=== PATIENT | female | born 1960 | race Caucasian/White ===

== ENCOUNTER 2016-12-06 18:19 | Observation (INO) ==
[2016-12-06] MEDS ORDERED: Ipratropium/Albuterol Neb 3 ML IH ONE (18:39)
--- NOTE | 2016-12-06 18:42 | Emergency Department Note ---
Disposition Clinical Impression: Acute exacerbation of chronic obstructive airways disease, Hypoxia Disposition: Admitted As Inpatient Condition: Fair Time of Disposition: 20:26 Altered Mental Status HPI - General Chief Complaint: ED Shortness of Breath/Dyspnea Stated Complaint: Weakness,AMS Time Seen by Provider: 12/06/16 18:25 Source: patient, family Mode of arrival: wheelchair Limitations: no limitations Nursing Notes Reviewed: Yes Vital Signs Reviewed: Yes - History of Present Illness HPI Narrative: 56-year-old female who comes in stating that she's had a cough congestion and has had increasing shortness of breath related to her COPD. Family states intermittently she's been confused. She is oxygen dependent at home. MD complaint: altered mental status Onset (ago): day(s) Timing confirmed by: family member Context: COPD Associated symptoms: Reports: cough, fever, shortness of breath - Related Data Home Medications Medication Instructions Recorded Confirmed ATROVENT Inhaler 06/07/16 Aspirin 06/07/16 Atorvastatin 06/07/16 06/07/16 Celexa 06/07/16 Furosemide 06/07/16 Lisinopril 06/07/16 Oxygen 06/07/16 Potassium Chloride 06/07/16 QVAR 40 mcg 06/07/16 Ventolin Hfa 06/07/16 06/07/16 Xanax 06/07/16 Previous Rx's Medication Instructions Recorded Cyclobenzaprine [Flexeril] 10 mg PO TID #10 tablet 06/07/16 Ketorolac [Toradol] 10 mg PO Q6HR #10 tablet 06/07/16 Allergies Allergy/AdvReac Type Severity Reaction Status Date / Time No Known Allergies Allergy Verified 06/07/16 11:16 Constitutional: Denies: fever, chills, weakness, weight change Eyes: Denies: eye pain, eye discharge, vision change ENT ED: Denies: ear pain, throat pain, dental pain, hearing loss, epistaxis, congestion, dysphagia Cardiovascular: Denies: chest pain, palpitations, dyspnea on exertion, edema, syncope Respiratory: Reports: cough, dyspnea, wheezes. Denies: hemoptysis, stridor Gastrointestinal: Denies: abdominal pain, nausea, vomiting, diarrhea, constipation, hematemesis, melena, hematochezia Genitourinary: Denies: dysuria, frequency, hematuria, discharge Musculoskeletal: Denies: back pain, neck pain, arthralgia, myalgia Integumentary: Denies: rash, abrasion, lesions Neurological: Denies: headache, weakness, numbness, paresthesias, confusion, abnormal gait, vertigo Psychiatric: Denies: anxiety, depression, suicidal thoughts, homicidal thoughts , auditory hallucinations, visual hallucinations Endocrine: Denies: fatigue Hematological/Lymphatic: Denies: easy bleeding, easy bruising Allergic/Immunologic: Denies: facial swelling, urticaria Past Medical History - Past Medical History Medical history: Reports: CHF, COPD, hyperlipidemia, myocardial infarction - Social History Smoking Status: Former smoker Smokeless Tobacco Status: No Alcohol use: Reports: unknown Drug use: Reports: none Physical Exam - General Limitations: no limitations General appearance: alert, in no apparent distress - Head Head exam: atraumatic, normocephalic, normal inspection - Eye Eye exam: Present: normal appearance, PERRL, EOMI - ENT ENT exam: normal exam, normal oropharynx, mucous membranes moist - Neck Neck exam: Present: normal inspection, full ROM, trachea midline - Chest Chest inspection: Present: normal inspection, symmetric chest wall rise - Respiratory Respiratory exam: Present: respiratory distress (Mild), wheezes, accessory muscle use, prolonged expiratory phase - Cardiovascular Cardiovascular exam: Present: regular rate - Abdominal Exam Abdominal exam: Present: soft, Non-Tender. Absent: tenderness, distention, guarding, rebound, rigidity - Extremities Exam Extremities exam: Present: normal inspection, full ROM. Absent: tenderness, pedal edema - Expanded Lower Extremity Exam Neurovascular/Tendon exam: Absent: motor deficit, sensory deficit, tendon deficit Gait: observed and normal - Back Exam Back exam: Present: normal inspection - Neurological Exam Neurological exam: Present: alert - Psychiatric Psychiatric exam: Present: normal affect, normal mood - Skin Skin exam: Present: warm, dry, intact, normal color Course - Reevaluation(s) Reevaluation #1: 56-year-old with history COPD with worsening symptoms but comes in short of breath and wheezing. Patient workup included blood gases showed a PO2 of 59 on oxygen. Normal pH. We'll admit for exacerbation COPD. Time: 20:24 - Consultations Consultation #1: Discussed with , admit. Time: 20:25 Vital Signs Temperature 97.0 F L 12/06/16 18:26 Pulse Rate 116 12/06/16 18:26 Respiratory Rate 20 12/06/16 18:26 Blood Pressure 143/79 12/06/16 18:26 O2 Sat by Pulse Oximetry 84 L 12/06/16 18:26 Temperature 97.0 F L 12/06/16 18:26 Pulse Rate 116 12/06/16 18:26 Respiratory Rate 18 12/06/16 18:52 Blood Pressure 143/79 12/06/16 18:26 O2 Sat by Pulse Oximetry 91 L 12/06/16 18:52 Oxygen Delivery Oxygen Delivery Nasal Cannula Altered Mental Status - Lab Data Lab results reviewed: Yes I reviewed the patient's lab results. Result diagrams: 12/06/16 19:29 12/06/16 19:29 Lab Results 12/06/16 12/06/16 12/06/16 Range/Units 18:55 19:00 19:00 WBC (4.3-11.1) K/mcL RBC (3.82-4.97) M/mcL Hgb (11.5-15.4) g/dL Hct (35.3-44.9) % MCV (83.0-100.0) fL MCH (28.0-33.3) pg MCHC (31.6-35.5) g/dL RDW (11.5-14.5) % Plt Count (140-400) K/mcL MPV (9.4-12.4) fL Immature Gran % (0-4) % Seg Neutrophils % % Lymphocytes % % Monocytes % % Eosinophils % % Basophils % % Neutrophils # (1.6-8.9) K/mcL Lymphocytes # (0.6-4.6) K/mcL Monocytes # (0.0-1.3) K/mcL Eosinophils # (0.0-0.6) K/mcL Basophils # (0.0-0.2) K/mcL PT (9.4-12.1) Seconds INR APTT (26.0-36.0) Seconds ABG pH 7.40 (7.32-7.45) pH Units ABG pCO2 59 H (35-45) mmHg ABG pO2 53 L (85-104) mmHg ABG HCO3 36.5 H (21-27) mEQ/L ABG Total CO2 38.3 H (20-26) mEq/L ABG O2 Saturation 87 L (95-98) % ABG Base Excess 9.9 H (-2.0 to 3.0) mEq/L Blood Gas Modality [place] Inspired O2 36 % Sodium (136-145) mEq/L Potassium (3.5-4.5) mEq/L Chloride (98-109) mEq/L Carbon Dioxide (19-29) mEq/L BUN (7-20) mg/dL Creatinine (0.57-1.11) mg/dL Est GFR ( Amer) (> 60) Est GFR (Non-Af Amer) (> 60) BUN/Creatinine Ratio (6-26) Glucose (70-99) mg/dL POC Glucose (58-89) Calculated Osmolality (280-300) Lactic Acid (0.5-2.2) mmol/L Calcium (8.6-10.8) mg/dL Total Bilirubin (0.2-1.2) mg/dL Direct Bilirubin (0.0-0.5) mg/dL Indirect Bilirubin (0.0-1.2) mg/dL AST (5-34) Units/L ALT (0-55) Units/L Alkaline Phosphatase (38-126) Units/L Troponin I (0-0.03) ng/mL Serum Total Protein (6.0-8.3) g/dL Albumin (3.5-5.0) g/dL Globulin (2.4-3.5) g/dL Albumin/Globulin Ratio (1.1-2.2) Urine Color Yellow (Yellow) Urine Clarity Clear (Clear) Urine pH 7.5 (5.0-8.0) pH Units Ur Specific [place] 1.019 (1.010-1.025) Urine Protein 30 H (Neg-Trace) mg/dL Urine Glucose (UA) Normal (Normal) mg/dL Urine Ketones Negative (Negative) mg/dL Urine Blood Negative (Negative) Urine Nitrite Negative (Negative) Urine Bilirubin Negative (Negative) Urine Urobilinogen Normal (Normal) mg/dL Ur Leukocyte Esterase Negative (Negative) Urine Microscopic RBC 0-3 (0-3) per hpf Urine Microscopic WBC 0-3 (0-3) per hpf Ur Squamous Epith Cells Many H (None-Few) per lpf Urine Bacteria None Seen (None-Few) per hpf Hyaline Casts None Seen (None-Few) per lpf Ur Culture Indicated? NO (NO) Urine Opiates Screen Negative (Eybonv=205) ng/mL Ur Barbiturates Screen Negative (Wtwafa=636) ng/mL Ur Phencyclidine Scrn Negative (Cutoff=25) ng/mL Ur Amphetamines Screen Negative (Czlboz=3299) ng/mL U Benzodiazepines Scrn Positive H (Pajxuz=953) ng/mL Urine Cocaine Screen Negative (Cutoff= 300) ng/mL U Marijuana (THC) Screen Positive H (Cutoff = 50) ng/mL 12/06/16 12/06/16 12/06/16 Range/Units 19:29 19:29 19:29 WBC 7.7 (4.3-11.1) K/mcL RBC 3.75 L (3.82-4.97) M/mcL Hgb 11.0 L (11.5-15.4) g/dL Hct 34.7 L (35.3-44.9) % MCV 92.5 (83.0-100.0) fL MCH 29.3 (28.0-33.3) pg MCHC 31.7 (31.6-35.5) g/dL RDW 13.5 (11.5-14.5) % Plt Count 138 L (140-400) K/mcL MPV 10.4 (9.4-12.4) fL Immature Gran % 0.8 (0-4) % Seg Neutrophils % 71.7 % Lymphocytes % 15.3 % Monocytes % 10.5 % Eosinophils % 1.4 % Basophils % 0.3 % Neutrophils # 5.5 (1.6-8.9) K/mcL Lymphocytes # 1.2 (0.6-4.6) K/mcL Monocytes # 0.8 (0.0-1.3) K/mcL Eosinophils # 0.1 (0.0-0.6) K/mcL Basophils # 0.0 (0.0-0.2) K/mcL PT 13.3 H (9.4-12.1) Seconds INR 1.2 APTT 30.0 (26.0-36.0) Seconds ABG pH (7.32-7.45) pH Units ABG pCO2 (35-45) mmHg ABG pO2 (85-104) mmHg ABG HCO3 (21-27) mEQ/L ABG Total CO2 (20-26) mEq/L ABG O2 Saturation (95-98) % ABG Base Excess (-2.0 to 3.0) mEq/L Blood Gas Modality Inspired O2 % Sodium 139 (136-145) mEq/L Potassium 3.6 (3.5-4.5) mEq/L Chloride 98 (98-109) mEq/L Carbon Dioxide 31 H (19-29) mEq/L BUN 9 (7-20) mg/dL Creatinine 0.83 (0.57-1.11) mg/dL Est GFR ( Amer) > 60 (> 60) Est GFR (Non-Af Amer) > 60 (> 60) BUN/Creatinine Ratio 11 (6-26) Glucose 144 H (70-99) mg/dL POC Glucose (58-89) Calculated Osmolality 289 (280-300) Lactic Acid (0.5-2.2) mmol/L Calcium 8.9 (8.6-10.8) mg/dL Total Bilirubin 0.4 (0.2-1.2) mg/dL Direct Bilirubin 0.2 (0.0-0.5) mg/dL Indirect Bilirubin 0.2 (0.0-1.2) mg/dL AST 35 H (5-34) Units/L ALT 49 (0-55) Units/L Alkaline Phosphatase 89 (38-126) Units/L Troponin I (0-0.03) ng/mL Serum Total Protein 7.2 (6.0-8.3) g/dL Albumin 3.4 L (3.5-5.0) g/dL Globulin 3.8 H (2.4-3.5) g/dL Albumin/Globulin Ratio 0.9 L (1.1-2.2) Urine Color (Yellow) Urine Clarity (Clear) Urine pH (5.0-8.0) pH Units Ur Specific [place] (1.010-1.025) Urine Protein (Neg-Trace) mg/dL Urine Glucose (UA) (Normal) mg/dL Urine Ketones (Negative) mg/dL Urine Blood (Negative) Urine Nitrite (Negative) Urine Bilirubin (Negative) Urine Urobilinogen (Normal) mg/dL Ur Leukocyte Esterase (Negative) Urine Microscopic RBC (0-3) per hpf Urine Microscopic WBC (0-3) per hpf Ur Squamous Epith Cells (None-Few) per lpf Urine Bacteria (None-Few) per hpf Hyaline Casts (None-Few) per lpf Ur Culture Indicated? (NO) Urine Opiates Screen (Brlyrs=678) ng/mL Ur Barbiturates Screen (Idjrzk=188) ng/mL Ur Phencyclidine Scrn (Cutoff=25) ng/mL Ur Amphetamines Screen (Qofyqa=3333) ng/mL U Benzodiazepines Scrn (Laghir=137) ng/mL Urine Cocaine Screen (Cutoff= 300) ng/mL U Marijuana (THC) Screen (Cutoff = 50) ng/mL 12/06/16 12/06/16 12/06/16 Range/Units 19:29 19:29 19:54 WBC (4.3-11.1) K/mcL RBC (3.82-4.97) M/mcL Hgb (11.5-15.4) g/dL Hct (35.3-44.9) % MCV (83.0-100.0) fL MCH (28.0-33.3) pg MCHC (31.6-35.5) g/dL RDW (11.5-14.5) % Plt Count (140-400) K/mcL MPV (9.4-12.4) fL Immature Gran % (0-4) % Seg Neutrophils % % Lymphocytes % % Monocytes % % Eosinophils % % Basophils % % Neutrophils # (1.6-8.9) K/mcL Lymphocytes # (0.6-4.6) K/mcL Monocytes # (0.0-1.3) K/mcL Eosinophils # (0.0-0.6) K/mcL Basophils # (0.0-0.2) K/mcL PT (9.4-12.1) Seconds INR APTT (26.0-36.0) Seconds ABG pH (7.32-7.45) pH Units ABG pCO2 (35-45) mmHg ABG pO2 (85-104) mmHg ABG HCO3 (21-27) mEQ/L ABG Total CO2 (20-26) mEq/L ABG O2 Saturation (95-98) % ABG Base Excess (-2.0 to 3.0) mEq/L Blood Gas Modality Inspired O2 % Sodium (136-145) mEq/L Potassium (3.5-4.5) mEq/L Chloride (98-109) mEq/L Carbon Dioxide (19-29) mEq/L BUN (7-20) mg/dL Creatinine (0.57-1.11) mg/dL Est GFR ( Amer) (> 60) Est GFR (Non-Af Amer) (> 60) BUN/Creatinine Ratio (6-26) Glucose (70-99) mg/dL POC Glucose 145 H (58-89) Calculated Osmolality (280-300) Lactic Acid 1.6 (0.5-2.2) mmol/L Calcium (8.6-10.8) mg/dL Total Bilirubin (0.2-1.2) mg/dL Direct Bilirubin (0.0-0.5) mg/dL Indirect Bilirubin (0.0-1.2) mg/dL AST (5-34) Units/L ALT (0-55) Units/L Alkaline Phosphatase (38-126) Units/L Troponin I 0.02 (0-0.03) ng/mL Serum Total Protein (6.0-8.3) g/dL Albumin (3.5-5.0) g/dL Globulin (2.4-3.5) g/dL Albumin/Globulin Ratio (1.1-2.2) Urine Color (Yellow) Urine Clarity (Clear) Urine pH (5.0-8.0) pH Units Ur Specific [place] (1.010-1.025) Urine Protein (Neg-Trace) mg/dL Urine Glucose (UA) (Normal) mg/dL Urine Ketones (Negative) mg/dL Urine Blood (Negative) Urine Nitrite (Negative) Urine Bilirubin (Negative) Urine Urobilinogen (Normal) mg/dL Ur Leukocyte Esterase (Negative) Urine Microscopic RBC (0-3) per hpf Urine Microscopic WBC (0-3) per hpf Ur Squamous Epith Cells (None-Few) per lpf Urine Bacteria (None-Few) per hpf Hyaline Casts (None-Few) per lpf Ur Culture Indicated? (NO) Urine Opiates Screen (Kerrex=765) ng/mL Ur Barbiturates Screen (Cxwqkx=280) ng/mL Ur Phencyclidine Scrn (Cutoff=25) ng/mL Ur Amphetamines Screen (Colanv=5758) ng/mL U Benzodiazepines Scrn (Gdebwr=547) ng/mL Urine Cocaine Screen (Cutoff= 300) ng/mL U Marijuana (THC) Screen (Cutoff = 50) ng/mL - Radiology Data Radiology results reviewed: Yes I reviewed the patient's radiology results. Chest X-Ray 12/06/16 18:38 IMPRESSION: No evidence of acute cardiopulmonary disease. D/ / 12/06/2016 19:12:02 Connor Kamara MD / hector Interpreting Provider: Connor Kamara MD Head CT 12/06/16 18:38 IMPRESSION: No acute intracranial abnormality. D/ / Arnaud Spicer MD / Arnaud Spicer MD Interpreting Provider: Arnaud Spicer MD - EKG Data EKG attestation: Yes I reviewed and interpreted this EKG. EKG shows normal: sinus rhythm Rate: tachycardia Rhythm: NSR [place]/QRS: RBBB Interpretation: no acute changes TPA Checklist - LKW: 3-4.5 hrs Add. Contraindications Patient/family understanding: The patient/family members have been counseled and understood the risk, benefit , and alternatives of treatment.
[2016-12-06 19:04] LABS: ABG Base Excess 9.9 mEq/L (-2.0 to 3.0); ABG HCO3 36.5 mEQ/L (21-27); ABG Oxygen Saturation 87 % (95-98); ABG PCO2 59 mmHg (35-45); ABG PO2 53 mmHg (85-104); ABG TCO2 38.3 mEq/L (20-26)
[2016-12-06 19:06] LABS: Blood Gas FiO2 36 %
[2016-12-06 19:12] LABS: Bilirubin,Urine Negative (Negative); Blood,Urine Negative (Negative); Clarity,Urine Clear (Clear); Color,Urine Yellow (Yellow); Glucose,Urine (UA) Normal (Normal); Ketones,Urine Negative (Negative); Leukocyte Esterase,Urine Negative (Negative); Nitrite,Urine Negative (Negative); PH,Urine 7.5 pH Units (5.0-8.0); Protein,Urine 30 mg/dL (Neg-Trace); Specific Gravity,Urine 1.019 (1.010-1.025); Urobilinogen,Urine Normal (Normal)
[2016-12-06 19:14] LABS: Bacteria,Urine None Seen per hpf (None-Few); Hyaline Casts,Urine None Seen per lpf (None-Few); RBC,Urine 0-3 per hpf (0-3); Squamous Epithelial Cell,Urine Many per lpf (None-Few); WBC,Urine 0-3 per hpf (0-3)
[2016-12-06 19:17] LABS: Amphetamine Screen,Urine Negative ng/mL (Cutoff=1000); Barbiturate Screen,Urine Negative ng/mL (Cutoff=200); Benzodiazepines Screen,Urine Positive ng/mL (Cutoff=200); Cannabinoid Screen,Urine Positive ng/mL (Cutoff = 50); Cocaine Screen,Urine Negative ng/mL (Cutoff= 300); Opiate Screen,Urine Negative ng/mL (Cutoff=300); Phencyclidine Screen,Urine Negative ng/mL (Cutoff=25)
[2016-12-06 19:39] LABS: Basophils % 0.3 %; Eosinophils # 0.1 K/mcL (0.0-0.6); Eosinophils % 1.4 %; Hematocrit 34.7 % (35.3-44.9); Immature Granulocytes % 0.8 % (0-4); Lymphocytes # 1.2 K/mcL (0.6-4.6); Lymphocytes % 15.3 %; Mean Corpuscular HGB Conc 31.7 g/dL (31.6-35.5); Mean Corpuscular Hemoglobin 29.3 pg (28.0-33.3); Mean Corpuscular Volume 92.5 fL (83.0-100.0); Mean Platelet Volume 10.4 fL (9.4-12.4); Monocytes # 0.8 K/mcL (0.0-1.3); Monocytes % 10.5 %; Neutrophils # 5.5 K/mcL (1.6-8.9); Platelet Count 138 K/mcL (140-400); Red Blood Count 3.75 M/mcL (3.82-4.97); Red Cell Distribution Width 13.5 % (11.5-14.5); Segmented Neutrophils % 71.7 %
[2016-12-06 19:44] LABS: INR 1.2; Prothrombin Time 13.3 Seconds (9.4-12.1)
[2016-12-06 19:55] LABS: Alanine Aminotransferase 49 Units/L (0-55); Albumin 3.4 g/dL (3.5-5.0); Albumin/Globulin Ratio 0.9 (1.1-2.2); Alkaline Phosphatase 89 Units/L (38-126); Aspartate Amino Transferase 35 Units/L (5-34); BUN/Creatinine Ratio 11 (6-26); Bilirubin,Direct 0.2 mg/dL (0.0-0.5); Bilirubin,Indirect 0.2 mg/dL (0.0-1.2); Bilirubin,Total 0.4 mg/dL (0.2-1.2); Blood Urea Nitrogen 9 mg/dL (7-20); Calcium 8.9 mg/dL (8.6-10.8); Carbon Dioxide 31 mEq/L (19-29); Chloride 98 mEq/L (98-109); Globulin 3.8 g/dL (2.4-3.5); Glucose 144 mg/dL (70-99); Osmolality,Calculated 289 (280-300); Potassium 3.6 mEq/L (3.5-4.5); Sodium 139 mEq/L (136-145); Total Protein 7.2 g/dL (6.0-8.3); eGFR For African Americans > 60 (> 60); eGFR For Non-African Americans > 60 (> 60)
[2016-12-06] MEDS ORDERED: methylPREDNISolone 125 MG/2 ML VIAL IVP ONE (20:25)
[2016-12-07] MEDS ORDERED: Naloxone 0.4 MG/ML INJ IVP PRN (00:04)
[2016-12-07] MEDS ORDERED: Acetaminophen 325 MG TABLET PO PRN (00:12)
[2016-12-07] MEDS ORDERED: Ondansetron 4 MG/2 ML VIAL IVP PRN (00:12)
[2016-12-07] MEDS ORDERED: 0.9 % Sodium Chloride 1,000 ML IVC SCH (00:15)
[2016-12-07] MEDS ORDERED: Albuterol 2.5 MG/3 ML NEBULIZER IH PRN (00:30)
[2016-12-07] MEDS ORDERED: ALPRAZolam 1 MG TABLET PO PRN (00:33)
--- NOTE | 2016-12-07 00:45 | Internal Med History&Physical ---
Date of Encounter: 12/07/16 Time of Encounter: 00:36 Assessment and Plan (1) Acute exacerbation of chronic obstructive airways disease Current visit: Yes Status: Acute 1. Will place on oxygen and wean to home dosing as able. 2. IV steroids, frequent aerosols, and Levaquin. 3. Will check influenza testing and treat if +. 4. Pt has been smoke free since 2013. (2) Dehydration Current visit: Yes Status: Acute 1. Hold Lasix. 2. IVF hydration overnight and monitor I/O. (3) DVT prophylaxis Current visit: Yes Status: Acute 1. Heparin SQ. Internal Medicine - H&P: HPI Chief complaint: cough; wheezing Admitted From: Emergency Dept Plans for Post Hospital Care: Home History of present illness: Ms. Bella is a 56 year old female who presents with complaints of cough, congestion, wheezing, and shortness of breath. Pt reports subjective fevers, headaches, and myalgias as well. Symptoms started 2-3 days ago. She has had multiple ill contacts. Work-up in ER revealed findings consistent with AECOPD. ABG revealed hypercarbia but normal pH. She wears oxygen chronically at home and, despite oxygen, her SOB has worsened. She has been intubated and on mechanical ventilation twice before for her COPD. She now feels a little better since admission from ER. However, she's still short of breath, wheezing , and coughing frequently. She denies any chest pain, vomiting, or diarrhea. Past Med Surg Social Fam HX - Past Medical History Attestation: Yes The following information was validated with the patient. Source: patient, old records reviewed Medical history: COPD (O2 dependent), hyperlipidemia, myocardial infarction Psychiatric history: anxiety, depression - Past Surgical History Surgical History: cholecystectomy, hysterectomy, orthopedic, other - Social History Smoking Status: Former smoker (quit in 2013) Packs per day: 3 PPD for 43 years. Smokeless Tobacco Status: No Alcohol use: unknown Drug use: none Current living situation: Home, With Family Activity Level: Independent ambulation Recent Out of Country Travel Within the Last 8 Weeks: No - Family History Father Living Status: Cause of : [place] Hx Family Cardiac Disorders: Yes Hx Family Endocrine Disorder: Yes (DM) Mother Living Status: Hx Family Cardiac Disorders: Yes (CHF) Hx Family Cancer: Yes (Kidney) Internal Medicine - H&P: Meds ATROVENT Inhaler 06/07/16 [History] Alprazolam [Xanax 1 MG Tablet] 1 tab PO BID 06/07/16 [History] Aspirin 06/07/16 [History] Citalopram Hydrobromide [Celexa] 40 mg PO DAILY 06/07/16 [History] Cyclobenzaprine [Flexeril] 10 mg PO TID #10 tablet 06/07/16 [Rx] Furosemide [Lasix] 40 mg PO DAILY 06/07/16 [History] Ketorolac [Toradol] 10 mg PO Q6HR #10 tablet 06/07/16 [Rx] Lisinopril [Lisinopril] 30 tab PO QDPC 06/07/16 [History] Oxygen [Oxygen] 3 - 5 l NS DAILY 06/07/16 [History] Potassium Chloride [Klor-Con 10] 10 meq PO 06/07/16 [History] QVAR 40 mcg 06/07/16 [History] Simvastatin [Zocor] 40 mg PO HS 06/07/16 [History] Ventolin Hfa 06/07/16 [History] Allergies No Known Allergies Allergy (Verified 06/07/16 11:16) - Constitutional Constitutional: fever(s), no chills, no night sweats - EENT Eyes: no blurry vision, no change in vision Ears: no ear pain, no tinnitus Nose, mouth and throat: nasal congestion, no sinus pressure, no sore throat - Cardiovascular Cardiovascular ROS IM: dyspnea, dyspnea on exertion, no chest pain, no syncope - Respiratory Respiratory: cough, dyspnea, wheezing, chest congestion, excessive phlegm production, no hemoptysis - Gastrointestinal Gastrointestinal: nausea, no diarrhea, no vomiting - Genitourinary Genitourinary: no dysuria, no flank pain, no hematuria - Musculoskeletal Musculoskeletal ROS IM: myalgias, no arthralgias, no back pain - Integumentary Integumentary IM: no rash - Neurological Neurological ROS: headache(s), no focal weakness, no frequent falls - Psychiatric Psychiatric: no anxiety, no depression - Endocrine Endocrine IM: no polydipsia, no polyuria - Allergic/Immunologic Allergic/Immunologic: wheezing, no GI upset with certain foods - Constitutional Vitals: Temp Pulse Resp BP Pulse Ox 99.7 F H 99 18 163/78 94 L 12/06/16 22:09 12/06/16 22:09 12/06/16 22:09 12/06/16 22:09 12/06/16 22:09 General appearance: Present: cooperative, mild distress, A&O X 3, pleasant, answers questions appropriately - Head Head exam: Present: atraumatic, normal inspection - Expanded Head Exam Head exam expanded: Absent: abrasion, general tenderness - Eye Eye exam: Present: EOMI, PERRL. Absent: scleral icterus Pupils: Present: normal accommodation - ENT ENT exam: Present: mucous membranes dry, normal oropharynx - Neck Neck exam general surgery: Present: full ROM, supple. Absent: lymphadenopathy, tenderness, nuchal rigidity - Respiratory Respiratory exam: Present: accessory muscle use (mild), decreased breath sounds , prolonged expiratory phase, respiratory distress (mild), rhonchi, wheezes. Absent: chest wall tenderness, rales - Cardiovascular Cardiovascular exam: Present: RRR, +S1, +S2, tachycardia. Absent: diastolic murmur, JVD, systolic murmur - GI/Abdominal GI/Abdominal exam: Present: normal bowel sounds, soft. Absent: guarding, hepatomegaly, mass, rebound, splenomegaly, tenderness - Extremities Exam Extremities exam: Present: full ROM, warm. Absent: calf tenderness, joint swelling, pedal edema - Back Exam Back exam: Present: normal inspection. Absent: CVA tenderness (L), CVA tenderness (R) - Neurological Exam Neurological exam: Present: alert, CN II-XII intact, oriented X3, no focal deficits - Psychiatric Psychiatric exam: Present: normal affect, normal mood - Skin Skin exam: Present: dry, warm. Absent: rash Internal Med - H&P Results - Labs CBC & Chem 7: 12/06/16 19:29 12/06/16 19:29 - EKG Data -: EKG Interpreted by Myself EKG shows normal: sinus rhythm Rate: tachycardia - EKG Data Prior EKG available for review: yes When compared to previous EKG: there is no significant change EKG comments: 12/07/16 00:52 Sinus tachycardia - Diagnostic Studies Chest x-ray Status: image reviewed by me (negative)
[2016-12-07] MEDS: *HR* Heparin 5,000 UNIT/ML VIAL SQ SCH ×2 (01:33→18:38)
[2016-12-07] MEDS: Levofloxacin 500 MG/100 ML 500 MG/100 ML BAG IVPB SCH (01:33)
[2016-12-07] MEDS: Ipratropium/Albuterol Neb 3 ML IH SCH ×5 (04:14→22:43)
[2016-12-07 04:48] LABS: Alanine Aminotransferase 44 Units/L (0-55); Albumin/Globulin Ratio 0.8 (1.1-2.2); Alkaline Phosphatase 86 Units/L (38-126); Aspartate Amino Transferase 32 Units/L (5-34); BUN/Creatinine Ratio 13 (6-26); Bilirubin,Total 0.5 mg/dL (0.2-1.2); Blood Urea Nitrogen 10 mg/dL (7-20); Calcium 8.4 mg/dL (8.6-10.8); Carbon Dioxide 29 mEq/L (19-29); Chloride 99 mEq/L (98-109); Globulin 3.9 g/dL (2.4-3.5); Glucose 222 mg/dL (70-99); Osmolality,Calculated 290 (280-300); Sodium 137 mEq/L (136-145); Total Protein 6.9 g/dL (6.0-8.3); eGFR For African Americans > 60 (> 60); eGFR For Non-African Americans > 60 (> 60)
[2016-12-07] MEDS ORDERED: methylPREDNISolone 125 MG/2 ML VIAL IVP SCH (08:00)
[2016-12-07] MEDS: methylPREDNISolone 125 MG/2 ML VIAL IVP SCH (16:01)
--- NOTE | 2016-12-07 17:12 | Event Note ---
Date of Encounter: 12/07/16 Time of Encounter: 08:00 Patient seen at the bedside. Admitted for acute COPD exacerbation. Patient gives history of being intubated twice in the past for acute respiratory failure. she reports feeling much better today and the breathing has improved. she has minimal wheezing on exam. CXR does not show any pneumonia. will continue IV steroids one more day and breathing tx.. possible dc tomm if stable.
[2016-12-08] MEDS: Levofloxacin 500 MG/100 ML 500 MG/100 ML BAG IVPB SCH (01:27)
[2016-12-08] MEDS: methylPREDNISolone 125 MG/2 ML VIAL IVP SCH ×2 (01:28→09:08)
[2016-12-08] MEDS: Ipratropium/Albuterol Neb 3 ML IH SCH ×2 (03:30→10:47)
[2016-12-08] MEDS: *HR* Heparin 5,000 UNIT/ML VIAL SQ SCH (06:15)
[2016-12-08 06:36] VITALS: BP 109/70
[2016-12-08 09:14] LABS: Basophils % 0.1 %; Hematocrit 34.2 % (35.3-44.9); Hemoglobin 10.8 g/dL (11.5-15.4); Immature Granulocytes % 0.6 % (0-4); Lymphocytes # 1.2 K/mcL (0.6-4.6); Lymphocytes % 12.5 %; Mean Corpuscular HGB Conc 31.6 g/dL (31.6-35.5); Mean Corpuscular Hemoglobin 29.3 pg (28.0-33.3); Mean Corpuscular Volume 92.9 fL (83.0-100.0); Monocytes # 0.7 K/mcL (0.0-1.3); Monocytes % 7.3 %; Neutrophils # 7.4 K/mcL (1.6-8.9); Platelet Count 166 K/mcL (140-400); Red Blood Count 3.68 M/mcL (3.82-4.97); Red Cell Distribution Width 13.4 % (11.5-14.5); Segmented Neutrophils % 79.5 %
[2016-12-08 09:26] LABS: BUN/Creatinine Ratio 27 (6-26); Calcium 8.6 mg/dL (8.6-10.8); Carbon Dioxide 30 mEq/L (19-29); Chloride 96 mEq/L (98-109); Glucose 310 mg/dL (70-99); Osmolality,Calculated 298 (280-300); Potassium 3.9 mEq/L (3.5-4.5); Sodium 136 mEq/L (136-145); eGFR For African Americans > 60 (> 60); eGFR For Non-African Americans > 60 (> 60)
[2016-12-08 09:27] LABS: Blood Urea Nitrogen 25 mg/dL (7-20)
--- NOTE | 2016-12-08 09:33 | Discharge Summary ---
Date of Encounter: 12/08/16 Time of Encounter: 09:30 - Discharge Diagnosis (1) Acute exacerbation of chronic obstructive airways disease Priority: Primary Status: Acute (2) DVT prophylaxis Priority: Secondary Status: Acute - Discharge Medications Prescriptions: PredniSONE 10 mg PO DAILY #65 tablet Home Medications: Alprazolam [Xanax 1 MG Tablet] 1 tab PO BID 06/07/16 [History] Citalopram Hydrobromide [Celexa] 40 mg PO DAILY 06/07/16 [History] Furosemide [Lasix] 40 mg PO DAILY 06/07/16 [History] Lisinopril 30 tab PO DAILY 06/07/16 [History] Oxygen 3 - 5 l NS AD 06/07/16 [History] Potassium Chloride [Klor-Con 10] 10 meq PO DAILY 06/07/16 [History] Albuterol Sulfate [Albuterol Inhaler] 2 puff IH Q4H PRN 12/07/16 [History] Aspirin [Lo-Dose Aspirin EC] 81 mg PO DAILY 12/07/16 [History] Atorvastatin [Lipitor] 40 mg PO DAILY 12/07/16 [History] Fluticasone/Salmeterol [Advair 250-50 Diskus] 1 puff IH BID 12/07/16 [History] Tiotropium [place] [Spiriva] 18 mcg IH DAILY 12/07/16 [History] PredniSONE 10 mg PO DAILY #65 tablet 12/08/16 [Rx] Allergies/Adverse Reactions: Allergies No Known Allergies Allergy (Verified 06/07/16 11:16) Date of admission: 12/06/16 20:45 Primary care physician: Pal Ochoa Discharging clinician: Kacey Nazario Anticipated date of discharge: 12/08/16 - Patient Status Disposition: Home, Self-Care Condition: Fair Functional capacity at discharge: independent ambulation Overall status at discharge: patient is back to baseline - Discharge Instructions Follow Up With: Pal Ochoa PAC [Primary Care Provider] - - Diet and Activity Activity: resume usual activities as tolerated Diet: advance to your usual diet Interval History: Ms. Bella is a 56 year old female who presents with complaints of cough, congestion, wheezing, and shortness of breath. Pt reports subjective fevers, headaches, and myalgias as well. Symptoms started 2-3 days ago. She has had multiple ill contacts. Work-up in ER revealed findings consistent with AECOPD. ABG revealed hypercarbia but normal pH. She wears oxygen chronically at home and, despite oxygen, her SOB has worsened. She has been intubated and on mechanical ventilation twice before for her COPD. she was admitted for acute exacerbation of COPD,chest x-ray did not show any signsarted on IV steroid ,duo nebs and empirical antibiotic. she improved clinically and has no wheezing today, she is able to walk to bathroom without any respiratory distress. will stop the antibiotics as there is no pneumonia she is being dc home today in stable condition/ Hospital course: Ms. Bella is a 56 year old female Time spent discussing smoking cessation with patient: more than 10 minutes - Time Spent with Patient Total time spent providing and/or coordinating discharge services: Greater than 30 minutes - Constitutional Vitals: Temp Pulse Resp BP Pulse Ox 97.7 F 74 12 109/70 96 12/08/16 06:35 12/08/16 06:35 12/08/16 06:35 12/08/16 06:35 12/08/16 09:00 General appearance: Present: cooperative, A&O X 3, pleasant, no acute distress, answers questions appropriately Exam: - Head Head exam: Present: atraumatic, normal inspection - Expanded Head Exam Head exam expanded: Absent: abrasion, general tenderness - Eye Eye exam: Present: EOMI, PERRL. Absent: scleral icterus Pupils: Present: normal accommodation - ENT ENT exam: Present: mucous membranes dry, normal oropharynx - Neck Neck exam general surgery: Present: full ROM, supple. Absent: lymphadenopathy, tenderness, nuchal rigidity - Respiratory Respiratory exam: Present: decreased breath sounds, no wheezing. - Cardiovascular Cardiovascular exam: Present: RRR, +S1, +S2, tachycardia. Absent: diastolic murmur, JVD, systolic murmur - GI/Abdominal GI/Abdominal exam: Present: normal bowel sounds, soft. Absent: guarding, hepatomegaly, mass, rebound, splenomegaly, tenderness - Extremities Exam Extremities exam: Present: full ROM, warm. Absent: calf tenderness, joint swelling, pedal edema - Back Exam Back exam: Present: normal inspection. Absent: CVA tenderness (L), CVA tenderness (R)
--- NOTE | 2016-12-08 14:56 | Electrocardiograph Report ---
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
== END 2016-12-08 11:00 | disposition home or self-care (01) ==
LOC: EMEROO 18:19 → 3BNU 18:19 → SUATTDRO 20:45 → 3BNU 21:55
PROVIDERS: ADMIT Pediatrics; ATTEND Internal Medicine Endocrinology, Diabetes & Metabolism

== ENCOUNTER 2017-09-06 18:15 | Inpatient (IN) ==
[2017-09-06] MEDS ORDERED: Ipratropium/Albuterol Neb 3 ML IH ONE (18:18)
[2017-09-06] MEDS ORDERED: methylPREDNISolone 125 MG/2 ML VIAL IVP ONE (18:18)
[2017-09-06] MEDS ORDERED: Levofloxacin 750 MG/150 ML 750 MG/150 ML BAG IVPB ONE (18:35)
[2017-09-06 18:39] LABS: Basophils % 0.2 %
[2017-09-06 18:40] LABS: Basophils # 0.1 K/mcL (0.0-0.2); Hematocrit 35.3 % (35.3-44.9); Immature Granulocytes % 0.6 % (0-4); Lymphocytes # 1.6 K/mcL (0.6-4.6); Lymphocytes % 6.2 %; Mean Corpuscular HGB Conc 31.2 g/dL (31.6-35.5); Mean Corpuscular Hemoglobin 29.3 pg (28.0-33.3); Mean Corpuscular Volume 94.1 fL (83.0-100.0); Mean Platelet Volume 10.4 fL (9.4-12.4); Monocytes # 0.9 K/mcL (0.0-1.3); Monocytes % 3.5 %; Neutrophils # 23.6 K/mcL (1.6-8.9); Platelet Count 190 K/mcL (140-400); Red Blood Count 3.75 M/mcL (3.82-4.97); Red Cell Distribution Width 13.6 % (11.5-14.5); Segmented Neutrophils % 89.5 %
[2017-09-06 18:52] LABS: ABG Base Excess 4 mEq/L (-2 to 3); ABG HCO3 33 mEq/L (21-27); ABG Oxygen Saturation 79 % (95-98); ABG PCO2 71 mmHg (35-45); ABG PH 7.28 pH Units (7.32-7.45); ABG PO2 51 mmHg (85-104); ABG TCO2 35 mEq/L (20-26)
[2017-09-06 18:53] LABS: BUN/Creatinine Ratio 31 (6-26); Blood Urea Nitrogen 33 mg/dL (7-20); Carbon Dioxide 30 mEq/L (19-29); Chloride 102 mEq/L (98-109); Glucose 161 mg/dL (70-99); Platelet Estimate Normal (Normal); Potassium 4.3 mEq/L (3.5-4.5); Sodium 140 mEq/L (136-145); eGFR For African Americans > 60 (> 60); eGFR For Non-African Americans 52 (> 60)
[2017-09-06 18:54] LABS: Osmolality,Calculated 301 (280-300)
[2017-09-06 18:56] LABS: Alanine Aminotransferase 34 Units/L (0-55); Albumin 2.8 g/dL (3.5-5.0); Albumin/Globulin Ratio 0.7 (1.1-2.2); Alkaline Phosphatase 89 Units/L (38-126); Aspartate Amino Transferase 21 Units/L (5-34); Bilirubin,Direct 0.2 mg/dL (0.0-0.5); Bilirubin,Indirect 0.4 mg/dL (0.0-1.2); Bilirubin,Total 0.6 mg/dL (0.2-1.2); Total Protein 6.8 g/dL (6.0-8.3)
--- NOTE | 2017-09-06 18:56 | Emergency Department Note ---
Disposition Clinical Impression: Pneumonia Qualifiers: Pneumonia type: due to unspecified organism Laterality: bilateral Lung location : unspecified part of lung Qualified Code(s): J18.9 - Pneumonia, unspecified organism Sepsis Qualifiers: Sepsis type: sepsis due to unspecified organism Qualified Code(s): A41.9 - Sepsis, unspecified organism Respiratory failure with hypoxia and hypercapnia Qualifiers: Chronicity: acute on chronic Qualified Code(s): J96.21 - Acute and chronic respiratory failure with hypoxia Disposition: Admitted As Inpatient Condition: Critical General Adult HPI - General Chief complaint: ED Altered Mental Status Stated complaint: AMS Source: EMS Limitations: no limitations Nursing Notes Reviewed: Yes Vital Signs Reviewed: Yes - History of Present Illness HPI Narrative: 18:37 Ventricular rate 97 bpm, MO interval 154 segs, QRS duration 146 ms, QT 373 ms, QTC 427 ms, indeterminate axis. Sinus rhythm with a ventricular rate of 97 bpm. No acute ischemic changes are noted on the EKG. No significant changes compared to the old ekg. There is a right bundle branch block that is similar to a previous study performed on December 06, 2016. Pain Scale: 0 - Related Data Home Medications Medication Instructions Recorded Confirmed ALPRAZolam [Xanax 1 MG Tablet] 1 tab PO BID 06/07/16 12/07/16 Citalopram Hydrobromide [Celexa] 40 mg PO DAILY 06/07/16 12/07/16 Furosemide [Lasix] 40 mg PO DAILY 06/07/16 12/07/16 Lisinopril 30 tab PO DAILY 06/07/16 12/07/16 Oxygen 3 - 5 l NS AD 06/07/16 12/07/16 Potassium Chloride [Klor-Con 10] 10 meq PO DAILY 06/07/16 12/07/16 Albuterol Sulfate [Albuterol 2 puff IH Q4H PRN 12/07/16 12/07/16 Inhaler] Aspirin [Lo-Dose Aspirin EC] 81 mg PO DAILY 12/07/16 12/07/16 Atorvastatin [Lipitor] 40 mg PO DAILY 12/07/16 12/07/16 Fluticasone/Salmeterol [Advair 1 puff IH BID 12/07/16 12/07/16 250-50 Diskus] Tiotropium [place] [Spiriva] 18 mcg IH DAILY 12/07/16 12/07/16 Previous Rx's Medication Instructions Recorded predniSONE [PredniSONE] 10 mg PO DAILY #65 tablet 12/08/16 Allergies Allergy/AdvReac Type Severity Reaction Status Date / Time No Known Allergies Allergy Verified 06/07/16 11:16 Past Medical History - Past Medical History Medical history: Reports: COPD, hyperlipidemia, myocardial infarction Surgical history: Reports: cholecystectomy, hysterectomy, orthopedic, other Psychiatric history: Reports: anxiety, depression - Social History Smoking Status: Former smoker Smokeless Tobacco Status: No Alcohol use: Reports: rarely Drug use: Reports: none Physical Exam - General Limitations: no limitations General appearance: lethargic Course Vital Signs Temperature 99.4 F 09/06/17 18:18 Pulse Rate 103 09/06/17 18:18 Respiratory Rate 14 09/06/17 18:18 Blood Pressure 118/91 09/06/17 18:18 O2 Sat by Pulse Oximetry 93 09/06/17 18:18 Temperature 98.7 F 09/06/17 20:49 Pulse Rate 101 09/06/17 22:24 Respiratory Rate 16 09/06/17 20:49 Blood Pressure 114/73 09/06/17 20:49 O2 Sat by Pulse Oximetry 94 09/06/17 20:49 Oxygen Delivery Oxygen Delivery Bipap Procedures - ABG Interpretation ABG Interpretation 1 ABG Results: PH 7.28 PCO2 71 PO2 51 Bicarbonate 33 CO2 35 ABG O2 saturation 79 Hypoximic, hypercarbic, respiratory acidosis Probably a VBG and not ABG. The patient's oxygen saturation was 92% on 4 L of O2 via nasal cannula. Medical Decision Making - MDM Narrative Medical decision making narrative: 56-year-old female presents to the emergency department with altered mental status as stated by family members. Initial oxygen saturation on 4 L via nasal cannula was 94%. As this patient has had intubations before and was altered, we started BiPAP administration. Patient responded well to this. She began mentating appropriately. Initial VBG showed hypoxemic hypercarbic respiratory acidosis. Chest x-ray revealed new ill-defined bilateral infrahilar opacities that may reflect either mild edema or atypical infection. Patient has elevated leukocytosis of 26.5, with altered mental status, hypoxia, tachycardia.. She does have an elevated BNP, but at this time, I think this patient most likely has pneumonia. We did obtain a CT scan of the head without contrast and this did not reveal any evidence of an intracranial abnormality. Lactic acid was 1.5. Blood pressure is 122/65. Using about At this time, we will treat this patient as a COPD exacerbation and pneumonia. Patient was given DuoNeb here in the emergency department as well as steroids as she does have COPD. Patient was given Levaquin. Patient was given 2 L of normal saline bolus here in the emergency department. Patient does have an element of CHF and her known history is only held off on administering any more fluids. Patient has not been in a health care facility recently to be concerned for HCAP. Discussed the plan for admission with the family at bedside and they agree with admission. Vital Signs Temperature 99.4 F 09/06/17 18:18 Pulse Rate 103 09/06/17 18:18 Respiratory Rate 14 09/06/17 18:18 Blood Pressure 118/91 09/06/17 18:18 O2 Sat by Pulse Oximetry 93 09/06/17 18:18 Temperature 99.4 F 09/06/17 18:18 Pulse Rate 100 09/06/17 20:01 Respiratory Rate 14 09/06/17 20:01 Blood Pressure 122/65 09/06/17 20:01 O2 Sat by Pulse Oximetry 95 09/06/17 20:01 Oxygen Delivery Oxygen Delivery Bipap Chest X-Ray 09/06/17 18:18 IMPRESSION: New ill-defined bilateral infrahilar opacities may reflect mild edema or atypical infection. D/ / Ulises Juan MD / Ulises Juan MD Interpreting Provider: Ulises Juan MD Head CT 09/06/17 18:27 IMPRESSION: No acute intracranial abnormality within limits of motion artifact. D/ / Ulises Juan MD / Ulises Juan MD Interpreting Provider: Ulises Juan MD - Lab Data Result diagrams: 09/06/17 18:30 09/06/17 18:30 Lab Results 11/26/17 11/26/17 11/26/17 Range/Units 18:30 18:30 18:30 WBC 26.4 H (4.3-11.1) K/mcL RBC 3.75 L (3.82-4.97) M/mcL Hgb 11.0 L (11.5-15.4) g/dL Hct 35.3 (35.3-44.9) % MCV 94.1 (83.0-100.0) fL MCH 29.3 (28.0-33.3) pg MCHC 31.2 L (31.6-35.5) g/dL RDW 13.6 (11.5-14.5) % Plt Count 190 (140-400) K/mcL MPV 10.4 (9.4-12.4) fL Immature Gran % 0.6 (0-4) % Seg Neutrophils % 89.5 % Lymphocytes % 6.2 % Monocytes % 3.5 % Eosinophils % 0.0 % Basophils % 0.2 % Neutrophils # 23.6 H (1.6-8.9) K/mcL Lymphocytes # 1.6 (0.6-4.6) K/mcL Monocytes # 0.9 (0.0-1.3) K/mcL Eosinophils # 0.0 (0.0-0.6) K/mcL Basophils # 0.1 (0.0-0.2) K/mcL Platelet Estimate Normal (Normal) ABG pH (7.32-7.45) pH Units ABG pCO2 (35-45) mmHg ABG pO2 (85-104) mmHg ABG HCO3 (21-27) mEq/L ABG Total CO2 (20-26) mEq/L ABG O2 Saturation (95-98) % ABG Base Excess (-2 to 3) mEq/L VBG pH (7.32-7.42) pH Units VBG pCO2 (41-51) mmHg VBG pO2 (25-50) mmHg VBG HCO3 (21-27) mEq/L Sodium 140 (136-145) mEq/L Potassium 4.3 (3.5-4.5) mEq/L Chloride 102 (98-109) mEq/L Carbon Dioxide 30 H (19-29) mEq/L BUN 33 H (7-20) mg/dL Creatinine 1.08 (0.57-1.11) mg/dL Est GFR ( Amer) > 60 (> 60) Est GFR (Non-Af Amer) 52 L (> 60) BUN/Creatinine Ratio 31 H (6-26) Glucose 161 H (70-99) mg/dL Calculated Osmolality 301 H (280-300) Lactic Acid 1.5 (0.5-2.2) mmol/L Calcium 9.0 (8.6-10.8) mg/dL Phosphorus (2.3-4.7) mg/dL Magnesium (1.6-2.6) mg/dL Total Bilirubin (0.2-1.2) mg/dL Direct Bilirubin (0.0-0.5) mg/dL Indirect Bilirubin (0.0-1.2) mg/dL AST (5-34) Units/L ALT (0-55) Units/L Alkaline Phosphatase (38-126) Units/L Ammonia (18-72) mcmol/L Troponin I (0-0.03) ng/mL B-Natriuretic Peptide (0-100) pg/mL Serum Total Protein (6.0-8.3) g/dL Albumin (3.5-5.0) g/dL Globulin (2.4-3.5) g/dL Albumin/Globulin Ratio (1.1-2.2) TSH (0.350-4.840) mcIU/mL Urine Color (Yellow) Urine Clarity (Clear) Urine pH (5.0-8.0) pH Units Ur Specific [place] (1.010-1.025) Urine Protein (Neg-Trace) mg/dL Urine Glucose (UA) (Normal) mg/dL Urine Ketones (Negative) mg/dL Urine Blood (Negative) Urine Nitrite (Negative) Urine Bilirubin (Negative) Urine Urobilinogen (Normal) mg/dL Ur Leukocyte Esterase (Negative) Urine Microscopic RBC (0-3) per hpf Urine Microscopic WBC (0-3) per hpf Ur Squamous Epith Cells (None-Few) per lpf Urine Bacteria (None-Few) per hpf Hyaline Casts (None-Few) per lpf Ur Culture Indicated? (NO) Urine Opiates Screen (Ryaqkv=244) ng/mL Ur Barbiturates Screen (Rdrduv=251) ng/mL Ur Phencyclidine Scrn (Cutoff=25) ng/mL Ur Amphetamines Screen (Hmszdd=3209) ng/mL U Benzodiazepines Scrn (Llqvdp=822) ng/mL Urine Cocaine Screen (Cutoff= 300) ng/mL U Marijuana (THC) Screen (Cutoff = 50) ng/mL Ethyl Alcohol (0-10) mg/dL Person Notif of Crit 09/06/17 09/06/17 09/06/17 Range/Units 18:30 18:30 18:32 WBC (4.3-11.1) K/mcL RBC (3.82-4.97) M/mcL Hgb (11.5-15.4) g/dL Hct (35.3-44.9) % MCV (83.0-100.0) fL MCH (28.0-33.3) pg MCHC (31.6-35.5) g/dL RDW (11.5-14.5) % Plt Count (140-400) K/mcL MPV (9.4-12.4) fL Immature Gran % (0-4) % Seg Neutrophils % % Lymphocytes % % Monocytes % % Eosinophils % % Basophils % % Neutrophils # (1.6-8.9) K/mcL Lymphocytes # (0.6-4.6) K/mcL Monocytes # (0.0-1.3) K/mcL Eosinophils # (0.0-0.6) K/mcL Basophils # (0.0-0.2) K/mcL Platelet Estimate (Normal) ABG pH (7.32-7.45) pH Units ABG pCO2 (35-45) mmHg ABG pO2 (85-104) mmHg ABG HCO3 (21-27) mEq/L ABG Total CO2 (20-26) mEq/L ABG O2 Saturation (95-98) % ABG Base Excess (-2 to 3) mEq/L VBG pH (7.32-7.42) pH Units VBG pCO2 (41-51) mmHg VBG pO2 (25-50) mmHg VBG HCO3 (21-27) mEq/L Sodium (136-145) mEq/L Potassium (3.5-4.5) mEq/L Chloride (98-109) mEq/L Carbon Dioxide (19-29) mEq/L BUN (7-20) mg/dL Creatinine (0.57-1.11) mg/dL Est GFR ( Amer) (> 60) Est GFR (Non-Af Amer) (> 60) BUN/Creatinine Ratio (6-26) Glucose (70-99) mg/dL Calculated Osmolality (280-300) Lactic Acid (0.5-2.2) mmol/L Calcium (8.6-10.8) mg/dL Phosphorus (2.3-4.7) mg/dL Magnesium (1.6-2.6) mg/dL Total Bilirubin 0.6 (0.2-1.2) mg/dL Direct Bilirubin 0.2 (0.0-0.5) mg/dL Indirect Bilirubin 0.4 (0.0-1.2) mg/dL AST 21 (5-34) Units/L ALT 34 (0-55) Units/L Alkaline Phosphatase 89 (38-126) Units/L Ammonia (18-72) mcmol/L Troponin I 0.01 (0-0.03) ng/mL B-Natriuretic Peptide 271 H (0-100) pg/mL Serum Total Protein 6.8 (6.0-8.3) g/dL Albumin 2.8 L (3.5-5.0) g/dL Globulin 4.0 H (2.4-3.5) g/dL Albumin/Globulin Ratio 0.7 L (1.1-2.2) TSH 0.394 (0.350-4.840) mcIU/mL Urine Color (Yellow) Urine Clarity (Clear) Urine pH (5.0-8.0) pH Units Ur Specific [place] (1.010-1.025) Urine Protein (Neg-Trace) mg/dL Urine Glucose (UA) (Normal) mg/dL Urine Ketones (Negative) mg/dL Urine Blood (Negative) Urine Nitrite (Negative) Urine Bilirubin (Negative) Urine Urobilinogen (Normal) mg/dL Ur Leukocyte Esterase (Negative) Urine Microscopic RBC (0-3) per hpf Urine Microscopic WBC (0-3) per hpf Ur Squamous Epith Cells (None-Few) per lpf Urine Bacteria (None-Few) per hpf Hyaline Casts (None-Few) per lpf Ur Culture Indicated? (NO) Urine Opiates Screen (Tmolhh=480) ng/mL Ur Barbiturates Screen (Umrczv=892) ng/mL Ur Phencyclidine Scrn (Cutoff=25) ng/mL Ur Amphetamines Screen (Lnmalk=9948) ng/mL U Benzodiazepines Scrn (Yntujw=434) ng/mL Urine Cocaine Screen (Cutoff= 300) ng/mL U Marijuana (THC) Screen (Cutoff = 50) ng/mL Ethyl Alcohol < 10 (0-10) mg/dL Person Notif of Crit 09/06/17 09/06/17 09/06/17 Range/Units 18:44 18:56 19:12 WBC (4.3-11.1) K/mcL RBC (3.82-4.97) M/mcL Hgb (11.5-15.4) g/dL Hct (35.3-44.9) % MCV (83.0-100.0) fL MCH (28.0-33.3) pg MCHC (31.6-35.5) g/dL RDW (11.5-14.5) % Plt Count (140-400) K/mcL MPV (9.4-12.4) fL Immature Gran % (0-4) % Seg Neutrophils % % Lymphocytes % % Monocytes % % Eosinophils % % Basophils % % Neutrophils # (1.6-8.9) K/mcL Lymphocytes # (0.6-4.6) K/mcL Monocytes # (0.0-1.3) K/mcL Eosinophils # (0.0-0.6) K/mcL Basophils # (0.0-0.2) K/mcL Platelet Estimate (Normal) ABG pH 7.28 L (7.32-7.45) pH Units ABG pCO2 71 H* (35-45) mmHg ABG pO2 51 L (85-104) mmHg ABG HCO3 33 H (21-27) mEq/L ABG Total CO2 35 H (20-26) mEq/L ABG O2 Saturation 79 L (95-98) % ABG Base Excess 4 H (-2 to 3) mEq/L VBG pH 7.26 L (7.32-7.42) pH Units VBG pCO2 77 H* (41-51) mmHg VBG pO2 108 H (25-50) mmHg VBG HCO3 35 H (21-27) mEq/L Sodium (136-145) mEq/L Potassium (3.5-4.5) mEq/L Chloride (98-109) mEq/L Carbon Dioxide (19-29) mEq/L BUN (7-20) mg/dL Creatinine (0.57-1.11) mg/dL Est GFR ( Amer) (> 60) Est GFR (Non-Af Amer) (> 60) BUN/Creatinine Ratio (6-26) Glucose (70-99) mg/dL Calculated Osmolality (280-300) Lactic Acid (0.5-2.2) mmol/L Calcium (8.6-10.8) mg/dL Phosphorus 2.2 L (2.3-4.7) mg/dL Magnesium 1.9 (1.6-2.6) mg/dL Total Bilirubin (0.2-1.2) mg/dL Direct Bilirubin (0.0-0.5) mg/dL Indirect Bilirubin (0.0-1.2) mg/dL AST (5-34) Units/L ALT (0-55) Units/L Alkaline Phosphatase (38-126) Units/L Ammonia (18-72) mcmol/L Troponin I (0-0.03) ng/mL B-Natriuretic Peptide (0-100) pg/mL Serum Total Protein (6.0-8.3) g/dL Albumin (3.5-5.0) g/dL Globulin (2.4-3.5) g/dL Albumin/Globulin Ratio (1.1-2.2) TSH (0.350-4.840) mcIU/mL Urine Color (Yellow) Urine Clarity (Clear) Urine pH (5.0-8.0) pH Units Ur Specific [place] (1.010-1.025) Urine Protein (Neg-Trace) mg/dL Urine Glucose (UA) (Normal) mg/dL Urine Ketones (Negative) mg/dL Urine Blood (Negative) Urine Nitrite (Negative) Urine Bilirubin (Negative) Urine Urobilinogen (Normal) mg/dL Ur Leukocyte Esterase (Negative) Urine Microscopic RBC (0-3) per hpf Urine Microscopic WBC (0-3) per hpf Ur Squamous Epith Cells (None-Few) per lpf Urine Bacteria (None-Few) per hpf Hyaline Casts (None-Few) per lpf Ur Culture Indicated? (NO) Urine Opiates Screen (Tzxowj=510) ng/mL Ur Barbiturates Screen (Pzrdkj=075) ng/mL Ur Phencyclidine Scrn (Cutoff=25) ng/mL Ur Amphetamines Screen (Owgraf=7689) ng/mL U Benzodiazepines Scrn (Nccmsb=400) ng/mL Urine Cocaine Screen (Cutoff= 300) ng/mL U Marijuana (THC) Screen (Cutoff = 50) ng/mL Ethyl Alcohol (0-10) mg/dL Person Notif of Renetta Renae/ALL 09/06/17 09/06/17 09/06/17 Range/Units 19:12 19:54 19:54 WBC (4.3-11.1) K/mcL RBC (3.82-4.97) M/mcL Hgb (11.5-15.4) g/dL Hct (35.3-44.9) % MCV (83.0-100.0) fL MCH (28.0-33.3) pg MCHC (31.6-35.5) g/dL RDW (11.5-14.5) % Plt Count (140-400) K/mcL MPV (9.4-12.4) fL Immature Gran % (0-4) % Seg Neutrophils % % Lymphocytes % % Monocytes % % Eosinophils % % Basophils % % Neutrophils # (1.6-8.9) K/mcL Lymphocytes # (0.6-4.6) K/mcL Monocytes # (0.0-1.3) K/mcL Eosinophils # (0.0-0.6) K/mcL Basophils # (0.0-0.2) K/mcL Platelet Estimate (Normal) ABG pH (7.32-7.45) pH Units ABG pCO2 (35-45) mmHg ABG pO2 (85-104) mmHg ABG HCO3 (21-27) mEq/L ABG Total CO2 (20-26) mEq/L ABG O2 Saturation (95-98) % ABG Base Excess (-2 to 3) mEq/L VBG pH (7.32-7.42) pH Units VBG pCO2 (41-51) mmHg VBG pO2 (25-50) mmHg VBG HCO3 (21-27) mEq/L Sodium (136-145) mEq/L Potassium (3.5-4.5) mEq/L Chloride (98-109) mEq/L Carbon Dioxide (19-29) mEq/L BUN (7-20) mg/dL Creatinine (0.57-1.11) mg/dL Est GFR ( Amer) (> 60) Est GFR (Non-Af Amer) (> 60) BUN/Creatinine Ratio (6-26) Glucose (70-99) mg/dL Calculated Osmolality (280-300) Lactic Acid (0.5-2.2) mmol/L Calcium (8.6-10.8) mg/dL Phosphorus (2.3-4.7) mg/dL Magnesium (1.6-2.6) mg/dL Total Bilirubin (0.2-1.2) mg/dL Direct Bilirubin (0.0-0.5) mg/dL Indirect Bilirubin (0.0-1.2) mg/dL AST (5-34) Units/L ALT (0-55) Units/L Alkaline Phosphatase (38-126) Units/L Ammonia 22 (18-72) mcmol/L Troponin I (0-0.03) ng/mL B-Natriuretic Peptide (0-100) pg/mL Serum Total Protein (6.0-8.3) g/dL Albumin (3.5-5.0) g/dL Globulin (2.4-3.5) g/dL Albumin/Globulin Ratio (1.1-2.2) TSH (0.350-4.840) mcIU/mL Urine Color Yellow (Yellow) Urine Clarity Clear (Clear) Urine pH 6.0 (5.0-8.0) pH Units Ur Specific [place] 1.020 (1.010-1.025) Urine Protein Trace (Neg-Trace) mg/dL Urine Glucose (UA) Normal (Normal) mg/dL Urine Ketones Negative (Negative) mg/dL Urine Blood Negative (Negative) Urine Nitrite Negative (Negative) Urine Bilirubin Small H (Negative) Urine Urobilinogen Normal (Normal) mg/dL Ur Leukocyte Esterase Negative (Negative) Urine Microscopic RBC 0-3 (0-3) per hpf Urine Microscopic WBC 0-3 (0-3) per hpf Ur Squamous Epith Cells Many H (None-Few) per lpf Urine Bacteria None Seen (None-Few) per hpf Hyaline Casts None Seen (None-Few) per lpf Ur Culture Indicated? NO (NO) Urine Opiates Screen Negative (Mefotr=603) ng/mL Ur Barbiturates Screen Negative (Nggunq=034) ng/mL Ur Phencyclidine Scrn Negative (Cutoff=25) ng/mL Ur Amphetamines Screen Negative (Xkptag=9401) ng/mL U Benzodiazepines Scrn Positive H (Hglakl=380) ng/mL Urine Cocaine Screen Negative (Cutoff= 300) ng/mL U Marijuana (THC) Screen Positive H (Cutoff = 50) ng/mL Ethyl Alcohol (0-10) mg/dL Person Notif of Crit 09/06/17 Range/Units 19:54 WBC (4.3-11.1) K/mcL RBC (3.82-4.97) M/mcL Hgb (11.5-15.4) g/dL Hct (35.3-44.9) % MCV (83.0-100.0) fL MCH (28.0-33.3) pg MCHC (31.6-35.5) g/dL RDW (11.5-14.5) % Plt Count (140-400) K/mcL MPV (9.4-12.4) fL Immature Gran % (0-4) % Seg Neutrophils % % Lymphocytes % % Monocytes % % Eosinophils % % Basophils % % Neutrophils # (1.6-8.9) K/mcL Lymphocytes # (0.6-4.6) K/mcL Monocytes # (0.0-1.3) K/mcL Eosinophils # (0.0-0.6) K/mcL Basophils # (0.0-0.2) K/mcL Platelet Estimate (Normal) ABG pH (7.32-7.45) pH Units ABG pCO2 (35-45) mmHg ABG pO2 (85-104) mmHg ABG HCO3 (21-27) mEq/L ABG Total CO2 (20-26) mEq/L ABG O2 Saturation (95-98) % ABG Base Excess (-2 to 3) mEq/L VBG pH 7.29 L (7.32-7.42) pH Units VBG pCO2 71 H* (41-51) mmHg VBG pO2 79 H (25-50) mmHg VBG HCO3 34 H (21-27) mEq/L Sodium (136-145) mEq/L Potassium (3.5-4.5) mEq/L Chloride (98-109) mEq/L Carbon Dioxide (19-29) mEq/L BUN (7-20) mg/dL Creatinine (0.57-1.11) mg/dL Est GFR ( Amer) (> 60) Est GFR (Non-Af Amer) (> 60) BUN/Creatinine Ratio (6-26) Glucose (70-99) mg/dL Calculated Osmolality (280-300) Lactic Acid (0.5-2.2) mmol/L Calcium (8.6-10.8) mg/dL Phosphorus (2.3-4.7) mg/dL Magnesium (1.6-2.6) mg/dL Total Bilirubin (0.2-1.2) mg/dL Direct Bilirubin (0.0-0.5) mg/dL Indirect Bilirubin (0.0-1.2) mg/dL AST (5-34) Units/L ALT (0-55) Units/L Alkaline Phosphatase (38-126) Units/L Ammonia (18-72) mcmol/L Troponin I (0-0.03) ng/mL B-Natriuretic Peptide (0-100) pg/mL Serum Total Protein (6.0-8.3) g/dL Albumin (3.5-5.0) g/dL Globulin (2.4-3.5) g/dL Albumin/Globulin Ratio (1.1-2.2) TSH (0.350-4.840) mcIU/mL Urine Color (Yellow) Urine Clarity (Clear) Urine pH (5.0-8.0) pH Units Ur Specific [place] (1.010-1.025) Urine Protein (Neg-Trace) mg/dL Urine Glucose (UA) (Normal) mg/dL Urine Ketones (Negative) mg/dL Urine Blood (Negative) Urine Nitrite (Negative) Urine Bilirubin (Negative) Urine Urobilinogen (Normal) mg/dL Ur Leukocyte Esterase (Negative) Urine Microscopic RBC (0-3) per hpf Urine Microscopic WBC (0-3) per hpf Ur Squamous Epith Cells (None-Few) per lpf Urine Bacteria (None-Few) per hpf Hyaline Casts (None-Few) per lpf Ur Culture Indicated? (NO) Urine Opiates Screen (Bvayku=951) ng/mL Ur Barbiturates Screen (Mbljvc=183) ng/mL Ur Phencyclidine Scrn (Cutoff=25) ng/mL Ur Amphetamines Screen (Chxelj=5631) ng/mL U Benzodiazepines Scrn (Gfmxiv=569) ng/mL Urine Cocaine Screen (Cutoff= 300) ng/mL U Marijuana (THC) Screen (Cutoff = 50) ng/mL Ethyl Alcohol (0-10) mg/dL Person Notif of Crit - EKG Data EKG #1 EKG attestation: Yes I reviewed and interpreted this EKG. EKG results narrative: Ventricular rate 100 bpm. Left bundle branch block. No ischemic changes in comparison with old electrocardiogram. The old EKG was performed on November. Attestation Statement - Attestation Attestation: I examined this patient and my medical decision-making was reviewed with the Resident Physician. I agree with the documented findings, disposition and treatment plan as described except to the extent set forth below. Findings consistent with altered mental status likely related to hypercapnia as well as sepsis. Patient has elevated white blood cell count. Plan, to get moseley cultures. Chest x-ray shows bilateral infiltrates. Patient was placed on BiPAP with improvement of mental status. She is protecting her airway, mentating appropriate with this time, venous blood gas shows improvement of hypercapnia. In regards to her sepsis she does have underlying heart failure. We did provide a generous fluid bolus of 2000 mL. Given her findings of elevated pro BMP as well as possible edema on x-ray I would defer a 30 mL per kilogram fluid bolus at this time. I do feel like 30 mL per kilogram fluid bolus would present more harm to the patient and benefit at this time. We can always provide more fluids if blood pressure becomes low. The patient will be admitted for further evaluation of sepsis, hypercapnia. I spent greater than 35 minutes of critical care time resuscitating this acutely ill patient suffering from hypercapnic respiratory failure and sepsis. This is excluding billable procedures.
[2017-09-06 18:57] LABS: Ethanol < 10 mg/dL (0-10)
[2017-09-06 18:59] LABS: VBG HCO3 35 mEq/L (21-27); VBG PCO2 77 mmHg (41-51); VBG PH 7.26 pH Units (7.32-7.42); VBG PO2 108 mmHg (25-50)
[2017-09-06 19:17] LABS: Thyroid Stimulating Hormone 0.394 mcIU/mL (0.350-4.840)
[2017-09-06] MEDS: 0.9 % Sodium Chloride 1,000 ML IVC SCH ×2 (19:30→22:41)
[2017-09-06 19:31] LABS: Magnesium 1.9 mg/dL (1.6-2.6); Phosphorous 2.2 mg/dL (2.3-4.7)
[2017-09-06 19:58] LABS: VBG HCO3 34 mEq/L (21-27); VBG PCO2 71 mmHg (41-51); VBG PH 7.29 pH Units (7.32-7.42); VBG PO2 79 mmHg (25-50)
[2017-09-06 20:02] LABS: Bilirubin,Urine Small (Negative); Blood,Urine Negative (Negative); Clarity,Urine Clear (Clear); Color,Urine Yellow (Yellow); Glucose,Urine (UA) Normal (Normal); Ketones,Urine Negative (Negative); Leukocyte Esterase,Urine Negative (Negative); Nitrite,Urine Negative (Negative); Protein,Urine Trace mg/dL (Neg-Trace); Urobilinogen,Urine Normal (Normal)
[2017-09-06 20:04] LABS: Bacteria,Urine None Seen per hpf (None-Few); Hyaline Casts,Urine None Seen per lpf (None-Few); RBC,Urine 0-3 per hpf (0-3); Squamous Epithelial Cell,Urine Many per lpf (None-Few); WBC,Urine 0-3 per hpf (0-3)
[2017-09-06 20:08] LABS: Amphetamine Screen,Urine Negative ng/mL (Cutoff=1000); Barbiturate Screen,Urine Negative ng/mL (Cutoff=200); Benzodiazepines Screen,Urine Positive ng/mL (Cutoff=200); Cannabinoid Screen,Urine Positive ng/mL (Cutoff = 50); Cocaine Screen,Urine Negative ng/mL (Cutoff= 300); Opiate Screen,Urine Negative ng/mL (Cutoff=300); Phencyclidine Screen,Urine Negative ng/mL (Cutoff=25)
[2017-09-06] MEDS ORDERED: Naloxone 0.4 MG/ML INJ IVP PRN (20:29)
[2017-09-06] MEDS ORDERED: Acetaminophen 325 MG TABLET PO PRN (20:29)
[2017-09-06] MEDS ORDERED: Ondansetron 4 MG/2 ML VIAL IVP PRN (20:29)
[2017-09-06] MEDS ORDERED: *HR* Morphine 2 MG/ML SYRINGE IVP PRN (20:29)
--- NOTE | 2017-09-06 20:35 | Internal Med History&Physical ---
Date of Encounter: 09/06/17 Time of Encounter: 20:20 Assessment and Plan (1) Acute on chronic respiratory failure with hypoxia and hypercapnia Current visit: Yes Status: Acute Acute on chronic hypoxic and hypercapnic respiratory failure, with acute respiratory acidosis - secondary to acute exacerbation of severe COPD (O2 dependent) and community-acquired pneumonia, present on admission Acute metabolic encephalopathy secondary to hypercapnia has now resolved - BiPAP will be continued overnight, NPO Continue DuoNeb breathing treatment, IV Solu-Medrol, IV Rocephin, IV Azithromycin, Symbicort, Spiriva ABG - restaurant acidosis with hypercapnia and hypoxia CT head - no acute intracranial abnormality WBC - 26.4 CXR - new ill-defined bilateral infrahilar opacities, likely atypical infection Lactic acid - 1.5 Troponin - 0.01 EKG - sinus rhythm with no acute ST-T changes Urine drug screen - positive for benzodiazepines and marijuana Cultures - pending Cardiac telemetry, pulse ox, labs in a.m., monitor closely (2) Pneumonia Current visit: Yes Status: Acute Sepsis secondary to Community-acquired pneumonia, present on admission - contributing to acute respiratory failure Continue empiric IV Rocephin, IV Azithromycin, DuoNeb breathing treatment Cultures - pending Legionella antigen - pending Chest x-ray - new ill-defined bilateral infrahilar opacities, possible atypical infection Qualifiers: Pneumonia type: due to unspecified organism Laterality: bilateral Lung location: unspecified part of lung Qualified Code(s): J18.9 - Pneumonia, unspecified organism (3) Sepsis Current visit: Yes Status: Acute Sepsis, present on admission - secondary to community-acquired pneumonia Plan as above Qualifiers: Sepsis type: sepsis due to unspecified organism Qualified Code(s): A41.9 - Sepsis, unspecified organism (4) CAD (coronary artery disease) Current visit: Yes Status: Chronic Probable coronary artery disease - with history of OH according to patient, without any stent placement - no suspicion for ACS at this time Questionable history of CHF Continue Aspirin, Lipitor EKG - sinus rhythm with no acute ST-T changes Troponin - 0.01, cycle troponin Echocardiogram (08/07/2016) - LVEF 65-70%, indeterminate diastolic function, atypical septal motion, normal RV structure and function, no evidence of valvular dysfunction Qualifiers: Coronary Disease-Associated Artery/Lesion type: [place] artery [place] vs. transplanted heart: [place] heart Associated angina: without angina Qualified Code(s): I25.10 - Atherosclerotic heart disease of [place] coronary artery without angina pectoris (5) Hypertension Current visit: Yes Status: Chronic Essential hypertension, controlled, monitor Continue home dose of Lisinopril, Lasix Qualifiers: Hypertension type: essential hypertension Qualified Code(s): I10 - Essential (primary) hypertension (6) Hyperlipidemia Current visit: Yes Status: Chronic Continue home dose of Lipitor Qualifiers: Hyperlipidemia type: unspecified Qualified Code(s): E78.5 - Hyperlipidemia , unspecified (7) Morbid obesity Current visit: Yes Status: Chronic Morbid obesity, BMI 45.4 Advised lifestyle modifications (8) DVT prophylaxis Current visit: Yes Status: Acute Heparin subcutaneous Internal Medicine - H&P: HPI Chief complaint: Altered mental status, shortness of breath Admitted From: Emergency Dept Plans for Post Hospital Care: Home History of present illness: Ms. Bella is a 56 year old female with past medical history of COPD oxygen dependent, hyperlipidemia, hypertension, history of OH, questionable CHF, anxiety and depression. Patient presents to ED with mental status and shortness of breath. Examined in the room. Patient is awake and alert. Not in any distress. She is on BiPAP. She is able to provide all history. Sister is at bedside and also provides history. According to the sister, patient became more confused earlier this afternoon. Patient was also short of breath. Patient states she does not remember what exactly happened today. Sister states that patient is currently back to baseline mental status. Patient denies chest pain or shortness of breath at present. She says the BiPAP has helped with her wheezing and shortness of breath. Patient does state that she exerted herself yesterday by moving some furniture and also had a fall without any injury. Patient denies headache or dizziness or cough. Shortness of breath is worse with exertion. Alleviated with BiPAP. Sister states the patient has been intubated several times in the past for her respiratory failure. Patient mentions that she has NOT been using her BiPAP regularly at home. No other associated symptoms. No acute complaints. Patient states she feels better at this time. Initial workup in the ED is significant for elevated white count and hypercapnia and hypoxia with respiratory acidosis. Chest x-ray shows new ill- defined bilateral infrahilar opacities which could be possibly pneumonia. Patient is being admitted for acute respiratory failure with community-acquired pneumonia. We will continue BiPAP and IV antibiotics and DuoNeb breathing treatment at this time. Patient and her sister have been explained about her condition and plan of care in detail. They understood and agreed. No unanswered questions. CODE STATUS full code. Past Med Surg Social Fam HX - Past Medical History Medical history: COPD, hyperlipidemia, myocardial infarction Psychiatric history: anxiety, depression - Past Surgical History Surgical History: cholecystectomy, hysterectomy, orthopedic, other - Social History Smoking Status: Former smoker Smokeless Tobacco Status: No Alcohol use: rarely Drug use: none - Family History Father Living Status: Hx Family Cardiac Disorders: Yes Hx Family Endocrine Disorder: Yes (DM) Mother Living Status: Hx Family Cardiac Disorders: Yes (CHF) Hx Family Cancer: Yes (Kidney) Internal Medicine - H&P: Meds ALPRAZolam [Xanax 1 MG Tablet] 1 tab PO BID 06/07/16 [History] Citalopram Hydrobromide [Celexa] 40 mg PO DAILY 06/07/16 [History] Furosemide [Lasix] 40 mg PO DAILY 06/07/16 [History] Lisinopril 30 tab PO DAILY 06/07/16 [History] Oxygen 3 - 5 l NS AD 06/07/16 [History] Potassium Chloride [Klor-Con 10] 10 meq PO DAILY 06/07/16 [History] Albuterol Sulfate [Albuterol Inhaler] 2 puff IH Q4H PRN 12/07/16 [History] Aspirin [Lo-Dose Aspirin EC] 81 mg PO DAILY 12/07/16 [History] Atorvastatin [Lipitor] 40 mg PO DAILY 12/07/16 [History] Fluticasone/Salmeterol [Advair 250-50 Diskus] 1 puff IH BID 12/07/16 [History] Tiotropium [place] [Spiriva] 18 mcg IH DAILY 12/07/16 [History] predniSONE [PredniSONE] 10 mg PO DAILY #65 tablet 12/08/16 [Rx] 3 Allergy/AdvReac Type Severity Reaction Status Date / Time No Known Allergies Allergy Verified 06/07/16 11:16 All Systems PM: A 10-system review of systems was performed and is negative for pertinent findings except as documented above in the HPI. - Constitutional Constitutional: fatigue, no fever(s), no weakness - EENT Eyes: no blurry vision, no change in vision - Cardiovascular Cardiovascular ROS IM: dyspnea, dyspnea on exertion, orthopnea, no chest pain, no diaphoresis, no edema, no lightheadedness, no palpitations, no syncope - Respiratory Respiratory: cough, dyspnea, dyspnea on exertion, wheezing, no hemoptysis, no chest congestion - Gastrointestinal Gastrointestinal: no abdominal pain, no bloating, no diarrhea, no heartburn, no loose stools, no nausea, no vomiting - Genitourinary Genitourinary: no dysuria - Musculoskeletal Musculoskeletal ROS IM: no back pain - Neurological Neurological ROS: confusion, no abnormal gait, no abnormal speech, no convulsions, no dizziness, no focal weakness, no loss of vision, no numbness, no tingling - Constitutional Vitals: Temp Pulse Resp BP Pulse Ox 99.4 F 100 14 107/68 95 09/06/17 18:18 09/06/17 20:01 09/06/17 20:25 09/06/17 20:25 09/06/17 20:01 General appearance: Present: cooperative, A&O X 3, morbidly obese, pleasant, no acute distress, answers questions appropriately Exam: Patient is currently on BiPAP and seems to be comfortable. - Head Head exam: Present: atraumatic - Eye Eye exam: Present: EOMI - ENT ENT exam: Present: mucous membranes dry - Respiratory Respiratory exam: Present: wheezes (Mild bilateral). Absent: accessory muscle use, rales, respiratory distress, rhonchi, tachypnea - Cardiovascular Cardiovascular exam: Present: RRR, +S1, +S2 - GI/Abdominal GI/Abdominal exam: Present: soft. Absent: distended, firm, guarding, tenderness - Extremities Exam Extremities exam: Present: pedal edema (Trace bilateral lower leg edema), radial pulses palpable and symmetrical. Absent: calf tenderness, cyanotic - Neurological Exam Neurological exam: Present: alert, CN II-XII intact, oriented X3, no focal deficits. Absent: facial droop, speech deficit Internal Med - H&P Results - Labs CBC & Chem 7: 09/06/17 18:30 09/06/17 18:30
[2017-09-06] MEDS: cefTRIAXone 1,000 MG in Water for inj. (sterile) 10 ML IVP SCH (21:20)
[2017-09-06] MEDS: Aspirin Enteric Coated 81 MG Tablet PO SCH (21:20)
[2017-09-06] MEDS: Famotidine 20 MG/2 ML VIAL IVP SCH (21:20)
[2017-09-06] MEDS: Azithromycin 500 MG in D5% in Water 250 ML IVPB SCH (21:21)
[2017-09-07] MEDS: Budesonide/Formoterol 80/4.5 MDI IH SCH ×3 (00:14→20:39)
[2017-09-07] MEDS: Ipratropium/Albuterol Neb 3 ML IH SCH ×6 (00:14→20:39)
[2017-09-07 00:30] LABS: Basophils % 0.1 %; Hematocrit 32.7 % (35.3-44.9); Hemoglobin 10.2 g/dL (11.5-15.4); Immature Granulocytes % 1.1 % (0-4); Lymphocytes # 1.1 K/mcL (0.6-4.6); Lymphocytes % 4.8 %; Mean Corpuscular HGB Conc 31.2 g/dL (31.6-35.5); Mean Corpuscular Hemoglobin 29.5 pg (28.0-33.3); Mean Corpuscular Volume 94.5 fL (83.0-100.0); Mean Platelet Volume 10.7 fL (9.4-12.4); Monocytes # 0.3 K/mcL (0.0-1.3); Monocytes % 1.2 %; Platelet Count 181 K/mcL (140-400); Red Blood Count 3.46 M/mcL (3.82-4.97); Red Cell Distribution Width 13.6 % (11.5-14.5); Segmented Neutrophils % 92.8 %
[2017-09-07 00:36] LABS: INR 1.2; Prothrombin Time 13.5 Seconds (9.4-12.1)
[2017-09-07 00:44] LABS: Potassium 4.8 mEq/L (3.5-4.5)
[2017-09-07] MEDS: methylPREDNISolone 125 MG/2 ML VIAL IVP SCH ×2 (00:46→07:44)
[2017-09-07] MEDS: *HR* Heparin 5,000 UNIT/ML VIAL SQ SCH ×3 (00:47→16:31)
[2017-09-07] MEDS ORDERED: 0.9 % Sodium Chloride 250 ML IVC ONE (02:05)
[2017-09-07 05:01] LABS: ABG Base Excess 5 mEq/L (-2 to 3); ABG HCO3 33 mEq/L (21-27); ABG Oxygen Saturation 93 % (95-98); ABG PCO2 61 mmHg (35-45); ABG PH 7.34 pH Units (7.32-7.45); ABG PO2 74 mmHg (85-104); ABG TCO2 34 mEq/L (20-26); Blood Gas Modality NIV
[2017-09-07] MEDS: Famotidine 20 MG/2 ML VIAL IVP SCH ×2 (06:14→17:55)
[2017-09-07] MEDS: Aspirin Enteric Coated 81 MG Tablet PO SCH (08:35)
[2017-09-07] MEDS ORDERED: Furosemide 40 MG TABLET PO SCH (09:00)
[2017-09-07] MEDS ORDERED: Tiotropium 18 MCG inhalation IH SCH (09:00)
--- NOTE | 2017-09-07 09:07 | Internal Med Progress Note ---
Date of Encounter: 09/07/17 Time of Encounter: 09:06 - Assessment and plan (1) Acute on chronic respiratory failure with hypoxia and hypercapnia Current Visit: Yes Status: Acute (2) Pneumonia Current Visit: Yes Status: Acute Qualifiers: Pneumonia type: due to unspecified organism Laterality: bilateral Lung location: unspecified part of lung Qualified Code(s): J18.9 - Pneumonia, unspecified organism (3) Sepsis Current Visit: Yes Status: Acute Qualifiers: Sepsis type: sepsis due to unspecified organism Qualified Code(s): A41.9 - Sepsis, unspecified organism (4) CAD (coronary artery disease) Current Visit: Yes Status: Chronic Qualifiers: Coronary Disease-Associated Artery/Lesion type: [place] artery [place] vs. transplanted heart: [place] heart Associated angina: without angina Qualified Code(s): I25.10 - Atherosclerotic heart disease of [place] coronary artery without angina pectoris (5) Hypertension Current Visit: Yes Status: Chronic Qualifiers: Hypertension type: essential hypertension Qualified Code(s): I10 - Essential (primary) hypertension (6) Hyperlipidemia Current Visit: Yes Status: Chronic Qualifiers: Hyperlipidemia type: unspecified Qualified Code(s): E78.5 - Hyperlipidemia , unspecified (7) DVT prophylaxis Current Visit: Yes Status: Acute - Constitutional Vitals: Temp Pulse Resp BP Pulse Ox 98.7 F 83 18 111/69 94 09/07/17 07:50 09/07/17 07:50 09/07/17 08:21 09/07/17 07:50 09/07/17 08:21 General appearance: Present: cooperative, A&O X 3, morbidly obese, pleasant, no acute distress, answers questions appropriately Internal Medicine: Result - Labs CBC & Chem 7: 09/07/17 00:23 09/07/17 00:23 Labs: Short CBC 09/07/17 Range/Units 00:23 WBC 22.6 H (4.3-11.1) K/mcL Hgb 10.2 L (11.5-15.4) g/dL Hct 32.7 L (35.3-44.9) % Plt Count 181 (140-400) K/mcL Neutrophils # 21.0 H (1.6-8.9) K/mcL BMP 09/07/17 00:23 Sodium 137 Potassium 4.8 H Chloride 102 Carbon Dioxide 31 H BUN 36 H Creatinine 1.17 H Glucose 235 H Calcium 9.0 Cardiac Enzymes 09/07/17 09/07/17 Range/Units 00:23 06:41 Troponin I 0.01 0.01 (0-0.03) ng/mL - ABG Interpretation ABG results: ABG ABG pH 7.34 pH Units (7.32-7.45) 09/07/17 04:56 ABG pCO2 61 mmHg (35-45) H 09/07/17 04:56 ABG pO2 74 mmHg (85-104) L 09/07/17 04:56 ABG O2 Saturation 93 % (95-98) L 09/07/17 04:56 PT/INR, D-dimer PT 13.5 Seconds (9.4-12.1) H 09/07/17 00:23 Consult Discharge Plan - Plan Referrals: Sydney Mendoza MD [Primary Care Provider] -
--- NOTE | 2017-09-07 11:33 | Electrocardiograph Report ---
[address] [place] [address] Test Date: 2017-09-06 Pat Name: Imelda Bella Department: 104 Room: 2N13 Gender: F Clearance Rep: EKP : 1960 Requested By: Peterson Gross Order Number: [id number] Reading MD: Joshua Bob MD Measurements Intervals [place] Rate: 97 P: 66 [place]: 154 QRS: 2 QRSD: 146 T: 33 QT: 373 QTc: 427 Interpretive Statements SINUS RHYTHM RIGHT BUNDLE BRANCH BLOCK ANTERIOR Ischemia Electronically Signed On 09-07-2017 11:32:07 EST by Joshua Bob MD
--- NOTE | 2017-09-07 11:37 | Electrocardiograph Report ---
[place] [address] Test Date: 2017-09-07 Pat Name: Imelda Bella Department: 110 Room: 2N13 Gender: F Field Professional: AMINA : 1960 Requested By: Mohamud Kat Order Number: [id number] Reading MD: Joshua Bob MD Measurements Intervals [place] Rate: 91 P: 67 [place]: 155 QRS: 6 QRSD: 110 T: 19 QT: 390 QTc: 439 Interpretive Statements SINUS RHYTHM LOW QRS VOLTAGE IN PRECORDIAL LEADS rbbb INFERIOR MYOCARDIAL INFARCTION, PROBABLY OLD WITH POSTERIOR EXTENSION BASELINE ARTIFACT Electronically Signed On 09-07-2017 11:35:47 EST by Joshua Bob MD
[2017-09-07] MEDS ORDERED: Insulin LISPRO 300 UNITS/3 ML VIAL SQ SCH (12:00)
[2017-09-07 12:27] LABS: Hemoglobin A1C 6.5 %
--- NOTE | 2017-09-07 14:15 | Internal Med Progress Note ---
Date of Encounter: 09/07/17 Time of Encounter: 14:13 - Assessment and plan (1) Acute exacerbation of chronic obstructive airways disease Current Visit: No Status: Acute Assessment and plan: Acute on chronic hypoxic hypercapnic respiratory failure due to combination of acute pulmonary edema due to diastolic CHF exacerbation and acute COPD exacerbation due to sepsis from community-acquired pneumonia possible atypical pneumonia Continue Rocephin and Zithromax day 2 Decrease dose of Solu-Medrol Continue Lasix 20 mg IV twice a day, strict I's and O's and daily weight Oxygen therapy and BiPAP at night (2) Pneumonia Current Visit: Yes Status: Acute Qualifiers: Pneumonia type: due to unspecified organism Laterality: bilateral Lung location: unspecified part of lung Qualified Code(s): J18.9 - Pneumonia, unspecified organism (3) Sepsis Current Visit: Yes Status: Acute Qualifiers: Sepsis type: sepsis due to unspecified organism Qualified Code(s): A41.9 - Sepsis, unspecified organism (4) Acute on chronic respiratory failure with hypoxia and hypercapnia Current Visit: Yes Status: Acute (5) Hypertension Current Visit: Yes Status: Chronic Qualifiers: Hypertension type: essential hypertension Qualified Code(s): I10 - Essential (primary) hypertension (6) Hyperlipidemia Current Visit: Yes Status: Chronic Qualifiers: Hyperlipidemia type: unspecified Qualified Code(s): E78.5 - Hyperlipidemia , unspecified (7) CAD (coronary artery disease) Current Visit: Yes Status: Chronic Qualifiers: Coronary Disease-Associated Artery/Lesion type: [place] artery [place] vs. transplanted heart: [place] heart Associated angina: without angina Qualified Code(s): I25.10 - Atherosclerotic heart disease of [place] coronary artery without angina pectoris (8) Morbid obesity Current Visit: Yes Status: Chronic (9) Hyperglycemia Current Visit: Yes Status: Acute Assessment and plan: Possibly steroid-induced Start insulin sliding scale Hemoglobin A1c was 6.5 - Subjective Interval history: The patient feels much better than yesterday, denies any fevers, no abdominal pain, no dizziness, no chest pain - Constitutional Vitals: Temp Pulse Resp BP Pulse Ox 98.4 F 95 20 125/71 96 09/07/17 11:59 09/07/17 11:59 09/07/17 12:37 09/07/17 11:59 09/07/17 12:37 General appearance: Present: cooperative, A&O X 3, morbidly obese, pleasant, no acute distress, answers questions appropriately - Head Head exam: Present: atraumatic, normocephalic - Eye Eye exam: Present: PERRL, conjuntiva pink, sclera anicteric Pupils: Present: PERRL - Neck Neck exam general surgery: Present: supple, trachea midline. Absent: lymphadenopathy - Respiratory Respiratory exam: Present: CTAB, rales, wheezes ( crackles and diffuse wheezing improving). Absent: accessory muscle use, rhonchi - Cardiovascular Cardiovascular exam: Present: RRR, +S1, +S2. Absent: diastolic murmur, gallop, rubs, systolic murmur - GI/Abdominal GI/Abdominal exam: Present: normal bowel sounds, soft, no peritoneal signs. Absent: distended, tenderness - Extremities Exam Extremities exam: Present: warm, radial pulses palpable and symmetrical. Absent : calf tenderness, cyanotic, pedal edema - Neurological Exam Neurological exam: Present: CN II-XII intact, oriented X3, no focal deficits. Absent: pronater drift, facial droop, speech deficit - Skin Skin exam: Present: dry, intact Internal Medicine: Result - Labs CBC & Chem 7: 09/07/17 00:23 09/07/17 00:23 Labs: Short CBC 09/07/17 Range/Units 00:23 WBC 22.6 H (4.3-11.1) K/mcL Hgb 10.2 L (11.5-15.4) g/dL Hct 32.7 L (35.3-44.9) % Plt Count 181 (140-400) K/mcL Neutrophils # 21.0 H (1.6-8.9) K/mcL BMP 09/07/17 00:23 Sodium 137 Potassium 4.8 H Chloride 102 Carbon Dioxide 31 H BUN 36 H Creatinine 1.17 H Glucose 235 H Calcium 9.0 Cardiac Enzymes 09/07/17 09/07/17 09/07/17 Range/Units 00:23 06:41 12:11 Troponin I 0.01 0.01 0.00 (0-0.03) ng/mL - ABG Interpretation ABG results: ABG ABG pH 7.34 pH Units (7.32-7.45) 09/07/17 04:56 ABG pCO2 61 mmHg (35-45) H 09/07/17 04:56 ABG pO2 74 mmHg (85-104) L 09/07/17 04:56 ABG O2 Saturation 93 % (95-98) L 09/07/17 04:56 PT/INR, D-dimer PT 13.5 Seconds (9.4-12.1) H 09/07/17 00:23 Consult Discharge Plan - Plan Referrals: Francy López [Non-Partnered Physician] - 09/24/17 2:00 pm (PLEASE FAX H&P, DISCHARGE SUMMARY TO [phone])
[2017-09-07] MEDS ORDERED: ALPRAZolam 1 MG TABLET PO PRN (15:24)
[2017-09-07] MEDS: Insulin LISPRO 300 UNITS/3 ML VIAL SQ SCH (16:31)
[2017-09-07] MEDS: Furosemide 20 MG/2 ML VIAL IVP SCH (17:55)
[2017-09-07] MEDS: MethylPREDNISolone 40 MG/ML VIAL IVP SCH (20:36)
[2017-09-07] MEDS: cefTRIAXone 1,000 MG in Water for inj. (sterile) 10 ML IVP SCH (20:37)
[2017-09-07] MEDS: Azithromycin 500 MG in D5% in Water 250 ML IVPB SCH (20:37)
[2017-09-08] MEDS: Ipratropium/Albuterol Neb 3 ML IH SCH ×4 (00:40→11:00)
[2017-09-08] MEDS: *HR* Heparin 5,000 UNIT/ML VIAL SQ SCH ×2 (01:32→08:09)
[2017-09-08] MEDS: Famotidine 20 MG/2 ML VIAL IVP SCH (05:09)
[2017-09-08] MEDS: Furosemide 20 MG/2 ML VIAL IVP SCH (05:10)
[2017-09-08 06:59] LABS: Hematocrit 30.6 % (35.3-44.9); Hemoglobin 9.9 g/dL (11.5-15.4); Mean Corpuscular HGB Conc 32.4 g/dL (31.6-35.5); Mean Corpuscular Hemoglobin 29.6 pg (28.0-33.3); Mean Corpuscular Volume 91.6 fL (83.0-100.0); Mean Platelet Volume 10.6 fL (9.4-12.4); Platelet Count 191 K/mcL (140-400); Red Blood Count 3.34 M/mcL (3.82-4.97); Red Cell Distribution Width 13.8 % (11.5-14.5)
[2017-09-08 07:12] LABS: BUN/Creatinine Ratio 38 (6-26); Blood Urea Nitrogen 37 mg/dL (7-20); Calcium 8.8 mg/dL (8.6-10.8); Carbon Dioxide 29 mEq/L (19-29); Chloride 99 mEq/L (98-109); Glucose 348 mg/dL (70-99); Osmolality,Calculated 303 (280-300); Potassium 4.4 mEq/L (3.5-4.5); Sodium 135 mEq/L (136-145); eGFR For African Americans > 60 (> 60); eGFR For Non-African Americans 59 (> 60)
[2017-09-08] MEDS: Budesonide/Formoterol 80/4.5 MDI IH SCH (07:30)
[2017-09-08 07:44] VITALS: BP 118/72
[2017-09-08] MEDS: MethylPREDNISolone 40 MG/ML VIAL IVP SCH (08:09)
[2017-09-08] MEDS: Insulin LISPRO 300 UNITS/3 ML VIAL SQ SCH (08:09)
[2017-09-08] MEDS: Aspirin Enteric Coated 81 MG Tablet PO SCH (08:10)
--- NOTE | 2017-09-08 08:59 | Discharge Summary ---
<Gwendolyn Cai - Last Filed: 09/08/17 10:18> Date of Encounter: 09/08/17 Time of Encounter: 08:30 - Discharge Diagnosis (1) Acute on chronic respiratory failure with hypoxia and hypercapnia Priority: Primary Status: Resolved (2) Pneumonia Priority: Primary Status: Acute Qualifiers: Pneumonia type: due to unspecified organism Laterality: bilateral Lung location: unspecified part of lung Qualified Code(s): J18.9 - Pneumonia, unspecified organism (3) Sepsis Priority: Secondary Status: Resolved Qualifiers: Sepsis type: sepsis due to unspecified organism Qualified Code(s): A41.9 - Sepsis, unspecified organism (4) CAD (coronary artery disease) Priority: Secondary Status: Chronic Qualifiers: Coronary Disease-Associated Artery/Lesion type: [place] artery [place] vs. transplanted heart: [place] heart Associated angina: without angina Qualified Code(s): I25.10 - Atherosclerotic heart disease of [place] coronary artery without angina pectoris (5) Hypertension Priority: Secondary Status: Chronic Qualifiers: Hypertension type: essential hypertension Qualified Code(s): I10 - Essential (primary) hypertension (6) Hyperlipidemia Priority: Secondary Status: Chronic Qualifiers: Hyperlipidemia type: unspecified Qualified Code(s): E78.5 - Hyperlipidemia , unspecified (7) DVT prophylaxis Priority: Secondary Status: Acute - Discharge Medications Prescriptions: Cefuroxime PO [Ceftin] 500 mg PO Q12HR #6 tablet Azithromycin [Zithromax] 500 mg PO ONCE #1 tablet metFORMIN [Glucophage] 500 mg PO 0800 #30 tablet predniSONE [PredniSONE] 10 mg PO DAILY 12 Days tablet Home Medications: ALPRAZolam [Xanax 1 MG Tablet] 1 tab PO TID 06/07/16 [History] Citalopram Hydrobromide [Celexa] 40 mg PO DAILY 06/07/16 [History] Furosemide [Lasix] 40 mg PO DAILY 06/07/16 [History] Lisinopril 30 tab PO DAILY 06/07/16 [History] Oxygen 3 - 5 l NS AD 06/07/16 [History] Potassium Chloride [Klor-Con 10] 10 meq PO DAILY 06/07/16 [History] Albuterol Sulfate [Albuterol Inhaler] 2 puff IH Q4H PRN 12/07/16 [History] Aspirin [Lo-Dose Aspirin EC] 81 mg PO DAILY 12/07/16 [History] Atorvastatin [Lipitor] 40 mg PO DAILY 12/07/16 [History] Fluticasone/Salmeterol [Advair 250-50 Diskus] 1 puff IH BID 12/07/16 [History] Tiotropium [place] [Spiriva] 18 mcg IH DAILY 12/07/16 [History] Azithromycin [Zithromax] 500 mg PO ONCE #1 tablet 09/08/17 [Rx] Cefuroxime PO [Ceftin] 500 mg PO Q12HR #6 tablet 09/08/17 [Rx] metFORMIN [Glucophage] 500 mg PO 0800 #30 tablet 09/08/17 [Rx] predniSONE [PredniSONE] 10 mg PO DAILY 12 Days tablet 09/08/17 [Rx] Allergies/Adverse Reactions: 3 Allergy/AdvReac Type Severity Reaction Status Date / Time No Known Allergies Allergy Verified 09/07/17 08:16 Date of admission: 09/06/17 20:29 Primary care physician: Sydney Mendoza MD Discharging clinician: Gwendolyn Cai Anticipated date of discharge: 09/08/17 - Patient Status Disposition: Home, Self-Care Condition: Fair Functional capacity at discharge: independent ambulation Overall status at discharge: patient is progressing back to baseline - Discharge Instructions Instructions: Cefuroxime (By mouth), Prednisone (By mouth), Azithromycin (By mouth), Metformin (By mouth), BiPAP, [employer] (GEN), COPD Exacerbation, [employer] (GEN) Follow Up With: Francy López [Non-Partnered Physician] - 09/24/17 2:00 pm (PLEASE FAX H&P, DISCHARGE SUMMARY TO [phone]) Additional Instructions: Follow up with primary care physician within 7 days. Taper prednisone , complete doses of cefdinir and azithromycin. Quit vaping. - Diet and Activity Activity: increase activity as tolerated, wear oxygen at all times Diet: low fat, low cholesterol, low salt diet Interval History: Seen and examined this morning at bedside. Patient says that she feels really good today and that her breathing has improved greatly since admission. Patient states that she is ready to go home. Hospital course: Ms. Bella is a 56 year old female with past medical history of oxygen dependent COPD, hyperlipidemia, hypertension, [place], questionable CHF, anxiety, and depression. Patient presented to the ED with changes in mental status and shortness of breath. In the emergency department, the patient was placed on BiPAP which helped to alleviate her shortness of breath and her mental status improved while in the ED. Initial workup in the emergency department showed elevated white count as well as respiratory acidosis with hypercapnia and hypoxia. Chest x-ray showed new, poorly defined infrahilar opacities bilaterally suggestive of atypical pneumonia or mild pulmonary edema. CT scan of head showed no evidence of intracranial abnormality. Lactic acid was elevated. She was given DuoNeb in the emergency department and steroids given for COPD. She was also started on Levaquin. Patient admitted for acute respiratory failure and sepsis d/t community acquired pneumonia. In the hostpital, the patient continued to improve clinically. Antibiotic treatment of pneumonia continued with IV Rocephin and IV azithromycin. Her acute respiratory failure was also treated with duo nebs, IV steroids, Symbicort , and Spiriva. The patient's lab work also revealed a hemoglobin A1c of 6.5%. Hyperglycemia with glucose of nearly 350 on the day of discharge was also noted on her lab work. The patient has received steroids during her admission which would increase her blood glucose but she admits a strong family history of diabetes. The patient has never been told she has diabetes, but sometimes checks her blood sugar with another family members glucometer and has seen several readings over 150. A formal diagnosis of diabetes mellitus and treatment would best be done at her primary care physician's office. - Time Spent with Patient Total time spent providing and/or coordinating discharge services: - Constitutional Vitals: Temp Pulse Resp BP Pulse Ox 97.6 F 101 16 118/72 97 09/08/17 07:58 09/08/17 07:58 09/08/17 07:58 09/08/17 07:40 09/08/17 07:58 General appearance: Present: cooperative, A&O X 3, morbidly obese, pleasant, no acute distress, answers questions appropriately - Head Head exam: Present: atraumatic, normocephalic - Eye Eye exam: Present: EOMI - Neck Neck exam general surgery: Present: full ROM, supple - Respiratory Respiratory exam: Present: CTAB. Absent: accessory muscle use, respiratory distress, rhonchi - Cardiovascular Cardiovascular exam: Present: RRR, +S1, +S2 - GI/Abdominal GI/Abdominal exam: Present: normal bowel sounds, soft - Extremities Exam Extremities exam: Present: normal inspection, warm. Absent: pedal edema Additional comments: Pedal pulses equal - Neurological Exam Neurological exam: Present: alert, altered, no focal deficits <Bhaskar De Leon - Last Filed: 09/08/17 10:59> Date of Encounter: 09/08/17 - Discharge Diagnosis (1) Acute exacerbation of chronic obstructive airways disease Status: Acute (2) Pneumonia Status: Acute Qualifiers: Pneumonia type: due to unspecified organism Laterality: bilateral Lung location: unspecified part of lung Qualified Code(s): J18.9 - Pneumonia, unspecified organism (3) Sepsis Status: Resolved Qualifiers: Sepsis type: sepsis due to unspecified organism Qualified Code(s): A41.9 - Sepsis, unspecified organism (4) Acute on chronic respiratory failure with hypoxia and hypercapnia Status: Resolved (5) Hypertension Status: Chronic Qualifiers: Hypertension type: essential hypertension Qualified Code(s): I10 - Essential (primary) hypertension (6) Hyperlipidemia Status: Chronic Qualifiers: Hyperlipidemia type: unspecified Qualified Code(s): E78.5 - Hyperlipidemia , unspecified (7) CAD (coronary artery disease) Status: Chronic Qualifiers: Coronary Disease-Associated Artery/Lesion type: [place] artery [place] vs. transplanted heart: [place] heart Associated angina: without angina Qualified Code(s): I25.10 - Atherosclerotic heart disease of [place] coronary artery without angina pectoris (8) Morbid obesity Status: Chronic (9) Hyperglycemia Status: Acute Date of admission: 09/06/17 20:29 Primary care physician: Sydney Mendoza MD Hospital course: Ms. Bella is a 56 year old female - Time Spent with Patient Total time spent providing and/or coordinating discharge services: Greater than 30 minutes (40 min) - Constitutional Vitals: Temp Pulse Resp BP Pulse Ox 97.6 F 101 16 118/72 97 09/08/17 07:58 09/08/17 07:58 09/08/17 07:58 09/08/17 07:40 09/08/17 07:58 - Attending Attestation Acute on chronic hypoxic hypercapnic respiratory failure due to combination of acute pulmonary edema due to diastolic CHF exacerbation and acute COPD exacerbation due to sepsis from community-acquired pneumonia possible atypical pneumonia I examined this patient and my medical decision-making was reviewed with the Resident Physician. I agree with the documented findings, disposition and treatment plan as described except to the extent set forth below.
[2017-09-08] MEDS ORDERED: FLUARIX QUAD 2017-18 36MOS UP/PF 0.5 ML SYRINGE IM ONE (09:52)
== END 2017-09-08 12:12 | disposition home or self-care (01) | DRG 871 ==
LOC: EMEROO 18:15 → 2NNU 18:15 → SUATTDRO 20:29 → 2NNU 20:58
PROVIDERS: ADMIT Family Medicine; ATTEND Internal Medicine

== ENCOUNTER 2018-07-17 08:28 | Inpatient (IN) ==
--- NOTE | 2018-07-17 08:40 | Emergency Department Note ---
Disposition Clinical Impression: COPD exacerbation, Altered mental status Disposition: Admitted As Inpatient Condition: Good General Adult HPI - General Stated complaint: THERON/AMS Time Seen by Provider: 07/17/18 08:36 - Related Data Home Medications Medication Instructions Recorded Confirmed ALPRAZolam [Xanax 1 MG Tablet] 1 tab PO TID 06/07/16 07/17/18 Citalopram Hydrobromide [Celexa] 40 mg PO DAILY 06/07/16 07/17/18 Furosemide [Lasix] 40 mg PO DAILY 06/07/16 07/17/18 Lisinopril 30 tab PO DAILY 06/07/16 07/17/18 Oxygen 3 - 5 l NS AD 06/07/16 07/17/18 Potassium Chloride [Klor-Con 10] 10 meq PO DAILY 06/07/16 07/17/18 Aspirin [Lo-Dose Aspirin EC] 81 mg PO DAILY 12/07/16 07/17/18 Atorvastatin [Lipitor] 40 mg PO DAILY 12/07/16 07/17/18 Fluticasone/Salmeterol [Advair 2 puff IH DAILY 12/07/16 07/17/18 250-50 Diskus] Gabapentin [Neurontin] 400 mg PO TID 07/17/18 07/17/18 Tiotropium [Spiriva] 1 puff IH DAILY 07/17/18 07/17/18 Previous Rx's Medication Instructions Recorded metFORMIN [Glucophage] 500 mg PO 0800 #30 tablet 09/08/17 Allergies Allergy/AdvReac Type Severity Reaction Status Date / Time No Known Allergies Allergy Verified 07/17/18 11:05 Past Medical History - Past Medical History Medical history: Reports: COPD, hyperlipidemia, myocardial infarction Surgical history: Reports: cholecystectomy, hysterectomy, orthopedic, other Psychiatric history: Reports: anxiety, depression - Social History Smoking Status: Former smoker Smokeless Tobacco Status: No Alcohol use: Reports: rarely Drug use: Reports: none Course Vital Signs Temperature 98.0 F 07/17/18 08:35 Pulse Rate 98 07/17/18 08:35 Respiratory Rate 22 07/17/18 08:35 Blood Pressure 130/80 07/17/18 08:35 O2 Sat by Pulse Oximetry 82 07/17/18 08:35 Temperature 97.9 F 07/17/18 15:56 Pulse Rate 97 07/17/18 15:56 Respiratory Rate 20 07/17/18 15:56 Blood Pressure 143/72 07/17/18 15:56 O2 Sat by Pulse Oximetry 95 07/17/18 15:56 Oxygen Delivery Oxygen Delivery Nasal Cannula Medical Decision Making - Lab Data Result diagrams: 07/17/18 08:59 07/17/18 08:59 Lab Results 07/17/18 07/17/18 07/17/18 Range/Units 08:59 08:59 08:59 WBC 7.4 (4.3-11.1) K/mcL RBC 3.27 L (3.82-4.97) M/mcL Hgb 9.5 L (11.5-15.4) g/dL Hct 31.5 L (35.3-44.9) % MCV 96.3 (83.0-100.0) fL MCH 29.1 (28.0-33.3) pg MCHC 30.2 L (31.6-35.5) g/dL RDW 13.8 (11.5-14.5) % Plt Count 210 (140-400) K/mcL MPV 10.0 (9.4-12.4) fL Immature Gran % 0.7 (0-4) % Seg Neutrophils % 69.0 % Lymphocytes % 20.4 % Monocytes % 6.1 % Eosinophils % 3.5 % Basophils % 0.3 % Neutrophils # 5.1 (1.6-8.9) K/mcL Lymphocytes # 1.5 (0.6-4.6) K/mcL Monocytes # 0.5 (0.0-1.3) K/mcL Eosinophils # 0.3 (0.0-0.6) K/mcL Basophils # 0.0 (0.0-0.2) K/mcL PT 11.1 (9.4-12.1) Seconds INR 1.0 Sodium 140 (136-145) mEq/L Potassium 5.1 (3.5-5.1) mEq/L Chloride 103 (98-107) mEq/L Carbon Dioxide 32 H (23-29) mEq/L BUN 26 H (6-20) mg/dL Creatinine 1.10 (0.60-1.20) mg/dL Est GFR ( Amer) > 60 (> 60) Est GFR (Non-Af Amer) 51 L (> 60) BUN/Creatinine Ratio 24 (6-26) Glucose 123 H (70-105) mg/dL Calculated Osmolality 296 (280-300) Lactic Acid (0.5-2.2) mmol/L Calcium 9.8 (8.6-10.3) mg/dL Magnesium 2.0 (1.6-2.6) mg/dL Total Bilirubin 0.4 (0.3-1.0) mg/dL AST 23 (13-39) Units/L ALT 20 (7-52) Units/L Alkaline Phosphatase 88 (34-104) Units/L Troponin I < 0.03 (< 0.04) ng/mL B-Natriuretic Peptide (Less than 100) pg/mL Serum Total Protein 7.0 (6.4-8.9) g/dL Albumin 4.0 (3.5-5.7) g/dL Globulin 3.0 (2.4-3.5) g/dL Albumin/Globulin Ratio 1.3 (1.1-2.2) Specimen Rejected 07/17/18 07/17/18 07/17/18 Range/Units 08:59 08:59 10:26 WBC (4.3-11.1) K/mcL RBC (3.82-4.97) M/mcL Hgb (11.5-15.4) g/dL Hct (35.3-44.9) % MCV (83.0-100.0) fL MCH (28.0-33.3) pg MCHC (31.6-35.5) g/dL RDW (11.5-14.5) % Plt Count (140-400) K/mcL MPV (9.4-12.4) fL Immature Gran % (0-4) % Seg Neutrophils % % Lymphocytes % % Monocytes % % Eosinophils % % Basophils % % Neutrophils # (1.6-8.9) K/mcL Lymphocytes # (0.6-4.6) K/mcL Monocytes # (0.0-1.3) K/mcL Eosinophils # (0.0-0.6) K/mcL Basophils # (0.0-0.2) K/mcL PT (9.4-12.1) Seconds INR Sodium (136-145) mEq/L Potassium (3.5-5.1) mEq/L Chloride (98-107) mEq/L Carbon Dioxide (23-29) mEq/L BUN (6-20) mg/dL Creatinine (0.60-1.20) mg/dL Est GFR ( Amer) (> 60) Est GFR (Non-Af Amer) (> 60) BUN/Creatinine Ratio (6-26) Glucose (70-105) mg/dL Calculated Osmolality (280-300) Lactic Acid 0.7 (0.5-2.2) mmol/L Calcium (8.6-10.3) mg/dL Magnesium (1.6-2.6) mg/dL Total Bilirubin (0.3-1.0) mg/dL AST (13-39) Units/L ALT (7-52) Units/L Alkaline Phosphatase (34-104) Units/L Troponin I (< 0.04) ng/mL B-Natriuretic Peptide 34 (Less than 100) pg/mL Serum Total Protein (6.4-8.9) g/dL Albumin (3.5-5.7) g/dL Globulin (2.4-3.5) g/dL Albumin/Globulin Ratio (1.1-2.2) Specimen Rejected Accident Attestation Statement - Attestation Attestation: For this encounter, I have reviewed the TRIM SAWYER or PA documentation, treatment plan, and medical decision making; and I have had face to face time with this patient. [id number] time provided Patient arrives in the care of her family with cough, dyspnea, altered mentation. Her pulse ox was in the low 80s at triage. She is oxygen dependent. She is alert at the time of my exam with increased work of breathing.
[2018-07-17] MEDS ORDERED: Ipratropium/Albuterol Neb 3 ML IH ONE (08:45)
[2018-07-17 09:11] LABS: Basophils % 0.3 %; Eosinophils # 0.3 K/mcL (0.0-0.6); Eosinophils % 3.5 %; Hematocrit 31.5 % (35.3-44.9); Hemoglobin 9.5 g/dL (11.5-15.4); Immature Granulocytes % 0.7 % (0-4); Lymphocytes # 1.5 K/mcL (0.6-4.6); Lymphocytes % 20.4 %; Mean Corpuscular HGB Conc 30.2 g/dL (31.6-35.5); Mean Corpuscular Hemoglobin 29.1 pg (28.0-33.3); Mean Corpuscular Volume 96.3 fL (83.0-100.0); Monocytes # 0.5 K/mcL (0.0-1.3); Monocytes % 6.1 %; Neutrophils # 5.1 K/mcL (1.6-8.9); Platelet Count 210 K/mcL (140-400); Red Blood Count 3.27 M/mcL (3.82-4.97); Red Cell Distribution Width 13.8 % (11.5-14.5)
--- NOTE | 2018-07-17 09:11 | Emergency Department Note ---
Disposition Clinical Impression: COPD exacerbation Altered mental status Qualifiers: Altered mental status type: unspecified Qualified Code(s): R41.82 - Altered mental status, unspecified Disposition: Admitted As Inpatient Condition: Good Time of Disposition: 10:30 SOB HPI - General Chief Complaint: ED Shortness of Breath/Dyspnea Stated Complaint: THERON/AMS Time Seen by Provider: 07/17/18 08:36 Source: family Mode of arrival: private vehicle Limitations: altered mental status Nursing Notes Reviewed: Yes Vital Signs Reviewed: Yes - History of Present Illness Imelda is a pleasant 57-year-old female. She presents the emergency room with a chief complaint of difficulty breathing and "not feeling right" 2 days. Her family notes that she is minimally confused. Her past medical history includes end-stage COPD and congestive heart failure. Family notes that she has a positive flu exposure recently and she has been active more than normal for the past 3 days. She normally wears home o2 between 3 L and 5 L. She notes that on her way to the ED, she ran out of home oxygen due to more use than expected / use above her baseline. She presents to the ED 88% on room air. Afebrile other vital signs stable. She denies cough or abdominal pain. Pt Subjective Complaint: shortness of breath Onset (ago): hour(s) Context: recent illness Severity: moderate Improves with: rest, bronchodilators Worsens with: exertion Known history of: COPD Associated symptoms: Reports: wheezing, nausea/vomiting - Related Data Home Medications Medication Instructions Recorded Confirmed ALPRAZolam [Xanax 1 MG Tablet] 1 tab PO TID 06/07/16 09/07/17 Citalopram Hydrobromide [Celexa] 40 mg PO DAILY 06/07/16 09/07/17 Furosemide [Lasix] 40 mg PO DAILY 06/07/16 09/07/17 Lisinopril 30 tab PO DAILY 06/07/16 09/07/17 Oxygen 3 - 5 l NS AD 06/07/16 09/07/17 Potassium Chloride [Klor-Con 10] 10 meq PO DAILY 06/07/16 09/07/17 Aspirin [Lo-Dose Aspirin EC] 81 mg PO DAILY 12/07/16 09/07/17 Atorvastatin [Lipitor] 40 mg PO DAILY 12/07/16 09/07/17 Fluticasone/Salmeterol [Advair 1 puff IH BID 12/07/16 09/07/17 250-50 Diskus] Gabapentin [Neurontin] 400 mg PO TID 07/17/18 07/17/18 Tiotropium [Spiriva] 1 puff IH DAILY 07/17/18 07/17/18 Previous Rx's Medication Instructions Recorded metFORMIN [Glucophage] 500 mg PO 0800 #30 tablet 09/08/17 Allergies Allergy/AdvReac Type Severity Reaction Status Date / Time No Known Allergies Allergy Verified 07/17/18 11:05 All systems ED: reviewed and negative except as stated. Review of Systems: As Per HPI Past Medical History - Past Medical History Medical history: Reports: COPD, hyperlipidemia, myocardial infarction Surgical history: Reports: cholecystectomy, hysterectomy, orthopedic, other Psychiatric history: Reports: anxiety, depression - Social History Smoking Status: Former smoker Smokeless Tobacco Status: No Alcohol use: Reports: rarely Drug use: Reports: none Physical Exam - General Limitations: altered mental status General appearance: other - Head Head exam: atraumatic - Eye Eye exam: Present: normal appearance, PERRL - ENT ENT exam: normal exam - Neck Neck exam: Present: normal inspection - Chest Chest inspection: Present: normal inspection - Respiratory Respiratory exam: Present: normal lung sounds bilaterally, other (coarse lung sounds bilaterally; expiratory wheeze) - Cardiovascular Cardiovascular exam: Present: regular rate - Abdominal Exam Abdominal exam: Present: tenderness (obese abdomen) - Extremities Exam Extremities exam: Present: normal inspection - Expanded Lower Extremity Exam Hip/Pelvis exam: Present: normal inspection Course Course Narrative: Patient responded well to proper dilators and steroids given in the emergency room however patient notes that she does not comfortable going home. Family states that due to the minimally altered mental status they were also concerned with taking her home. Case is discussed with hospitalist for potential admission. He is not admitted for a COPD exacerbation. Vital Signs Temperature 98.0 F 07/17/18 08:35 Pulse Rate 98 07/17/18 08:35 Respiratory Rate 22 07/17/18 08:35 Blood Pressure 130/80 07/17/18 08:35 O2 Sat by Pulse Oximetry 82 07/17/18 08:35 Temperature 98.0 F 07/17/18 08:35 Pulse Rate 98 07/17/18 08:35 Respiratory Rate 22 07/17/18 08:35 Blood Pressure 130/80 07/17/18 08:35 O2 Sat by Pulse Oximetry 100 07/17/18 08:35 Oxygen Delivery Oxygen Delivery Room Air Shortness of Breath/Dyspnea - Medical Records Medical records reviewed: Yes I reviewed the patient's medical records. - Lab Data Lab results reviewed: Yes I reviewed the patient's lab results. - Radiology Data Radiology results reviewed: Yes I reviewed the patient's radiology results. - EKG Data EKG attestation: Yes I reviewed and interpreted this EKG.
[2018-07-17 09:17] LABS: Prothrombin Time 11.1 Seconds (9.4-12.1)
[2018-07-17 09:47] LABS: Troponin I < 0.03 ng/mL (< 0.04)
[2018-07-17 09:48] LABS: Alanine Aminotransferase 20 Units/L (7-52); Albumin/Globulin Ratio 1.3 (1.1-2.2); Alkaline Phosphatase 88 Units/L (34-104); Aspartate Amino Transferase 23 Units/L (13-39); BUN/Creatinine Ratio 24 (6-26); Bilirubin,Total 0.4 mg/dL (0.3-1.0); Blood Urea Nitrogen 26 mg/dL (6-20); Calcium 9.8 mg/dL (8.6-10.3); Carbon Dioxide 32 mEq/L (23-29); Chloride 103 mEq/L (98-107); Glucose 123 mg/dL (70-105); Osmolality,Calculated 296 (280-300); Potassium 5.1 mEq/L (3.5-5.1); Sodium 140 mEq/L (136-145); eGFR For Non-African Americans 51 (> 60)
[2018-07-17] MEDS ORDERED: methylPREDNISolone 125 MG/2 ML VIAL IVP ONE (09:53)
[2018-07-17] MEDS ORDERED: Acetaminophen 325 MG TABLET PO PRN (10:00)
[2018-07-17] MEDS ORDERED: Naloxone 0.4 MG/ML INJ IVP PRN (10:00)
[2018-07-17] MEDS ORDERED: *HR* OxyCODONE Immed Rel 5 MG TABLET PO PRN (10:00)
[2018-07-17] MEDS ORDERED: Albuterol 2.5 MG/3 ML NEBULIZER IH PRN (10:03)
--- NOTE | 2018-07-17 10:27 | Internal Med History&Physical ---
Date of Encounter: 07/17/18 Time of Encounter: 10:10 Internal Medicine - H&P: HPI Chief complaint: Generalized weakness, wheezing Admitted From: Home History of present illness: Ms. Bella is a 57 year old female with history of COPD on 3 L of oxygen, chronic anemia, congestive heart failure, hyperlipidemia, morbid obesity, presented to the ED with 3 day history of lethargy and shortness of breath. Further history was obtained from the family members by bedside as the patient was still lethargic. It appears that she has been gradually getting weaker for the last week and developed SOB and wheezing on Thu-. No fever/chills but positive sick contact from her daughter who works as a nurse. Denies any chest pain, cough, sputum production. orthopnea, PND, unintentional weight gain , or leg swelling. No abdominal pain, nausea/vomiting, change in bowel habits, dysuria, joint pain, or rash. Denies any focal weakness/numbness, headache, dysarthria, dysphagia, or unsteady gait. Does not smoke cigarettes anymore but continues to use electronic cigarette. Has a nebulizer at home which she did not try prior to coming to the ED. In the ED, she was afebrile and hemodynamically stable. Saturating 98% on 3 L. Initial investigations were unremarkable including negative troponin and normal BNP. No leukocytosis. Chest x-ray did not show any acute cardiopulmonary processes. She was given DuoNeb, IV Solu-Medrol, and admitted for further management. Past Med Surg Social Fam HX - Past Medical History Medical history: COPD, hyperlipidemia, myocardial infarction Psychiatric history: anxiety, depression - Past Surgical History Surgical History: cholecystectomy, hysterectomy, orthopedic, other Additional surgical history: Right knee (Meniscus repair). - Social History Smoking Status: Former smoker Packs per day: 120 pack year history Smokeless Tobacco Status: No Alcohol use: rarely Drug use: none - Family History Father Living Status: Hx Family Cardiac Disorders: Yes Hx Family Endocrine Disorder: Yes (DM) Mother Living Status: Hx Family Cardiac Disorders: Yes (CHF) Hx Family Cancer: Yes (Kidney) Internal Medicine - H&P: Meds ALPRAZolam [Xanax 1 MG Tablet] 1 tab PO TID 06/07/16 [History] Citalopram Hydrobromide [Celexa] 40 mg PO DAILY 06/07/16 [History] Furosemide [Lasix] 40 mg PO DAILY 06/07/16 [History] Lisinopril 30 tab PO DAILY 06/07/16 [History] Oxygen 3 - 5 l NS AD 06/07/16 [History] Potassium Chloride [Klor-Con 10] 10 meq PO DAILY 06/07/16 [History] Aspirin [Lo-Dose Aspirin EC] 81 mg PO DAILY 12/07/16 [History] Atorvastatin [Lipitor] 40 mg PO DAILY 12/07/16 [History] Fluticasone/Salmeterol [Advair 250-50 Diskus] 1 puff IH BID 12/07/16 [History] metFORMIN [Glucophage] 500 mg PO 0800 #30 tablet 09/08/17 [Rx] Tiotropium [Spiriva] 1 puff IH DAILY 07/17/18 [History] 3 Allergy/AdvReac Type Severity Reaction Status Date / Time No Known Allergies Allergy Verified 07/17/18 08:46 All Systems PM: A 10-system review of systems was performed and is negative for pertinent findings except as documented above in the HPI. - Constitutional Vitals: Temp Pulse Resp BP Pulse Ox 98.0 F 84 20 137/75 96 07/17/18 08:35 07/17/18 09:25 07/17/18 09:25 07/17/18 09:25 07/17/18 09:25 Exam: General: Lethargic but easily arousable. Not in acute distress on nasal cannula. HEENT:EOM, pupils equal, round and reactive. Cardiovascular:Normal S1 & S2, No JVD. Pulse regular. Lungs: Scattered wheezes bilaterally, no rhonchi/rales. Abdomen:Soft, non-tender, no rigidity. Extremities:No deformity or swelling Neurological: Lethargic but easily arousable to verbal command. No focal deficits. Skin:Normal color, no rash, no lesions. Pulses:Carotid and radial pulses normal +2. Rest of the physical exam is non contributory Internal Med - H&P Results - Labs CBC & Chem 7: 07/17/18 08:59 07/17/18 08:59 Labs: Short CBC 07/17/18 Range/Units 08:59 WBC 7.4 (4.3-11.1) K/mcL Hgb 9.5 L (11.5-15.4) g/dL Hct 31.5 L (35.3-44.9) % Plt Count 210 (140-400) K/mcL Neutrophils # 5.1 (1.6-8.9) K/mcL BMP 07/17/18 08:59 Sodium 140 Potassium 5.1 Chloride 103 Carbon Dioxide 32 H BUN 26 H Creatinine 1.10 Glucose 123 H Calcium 9.8 Cardiac Enzymes 07/17/18 Range/Units 08:59 Troponin I < 0.03 (< 0.04) ng/mL Liver Function 07/17/18 Range/Units 08:59 Total Bilirubin 0.4 (0.3-1.0) mg/dL AST 23 (13-39) Units/L ALT 20 (7-52) Units/L Alkaline Phosphatase 88 (34-104) Units/L Albumin 4.0 (3.5-5.7) g/dL - Impressions ITS Impressions Chest X-Ray 07/17/18 08:37 IMPRESSION: No acute cardiopulmonary disease is appreciated. D/ / Keon Watkins MD / Keon Watkins MD Interpreting Provider: Keon Watkins MD - Assessment and plan (1) Acute exacerbation of chronic obstructive airways disease Current Visit: No Status: Acute Assessment and plan: Could also have an element of hypercarbic respiratory failure responsible for her being lethargic Given DuoNeb and IV Solu-Medrol in the ED with clinical improvement. No evidence of pneumonia on chest x-ray nor have leukocytosis. Check respiratory infection panel. Continue scheduled bronchodilators, IV Solu-Medrol Will add azithromycin given her underlying severe COPD Check VBG, place on temporary BiPAP if found to be in hypercarbic respiratory failure (2) CAD (coronary artery disease) Current Visit: No Status: Chronic Assessment and plan: Resume home meds when reconciled Qualifiers: Coronary Disease-Associated Artery/Lesion type: [place] artery [place] vs. transplanted heart: [place] heart Associated angina: without angina Qualified Code(s): I25.10 - Atherosclerotic heart disease of [place] coronary artery without angina pectoris (3) Hyperlipidemia Current Visit: No Status: Chronic Assessment and plan: Resume home meds when reconciled Qualifiers: Hyperlipidemia type: unspecified Qualified Code(s): E78.5 - Hyperlipidemia , unspecified (4) Morbid obesity Current Visit: No Status: Chronic Assessment and plan: Importance of dietary and exercise modifications emphasized (5) DVT prophylaxis Current Visit: No Status: Acute Assessment and plan: Subcutaneous heparin - Time Spent With Patient Total time spent is greater than 50% in coordination of care (as documented) at patient's floor/unit and/or counseling patient:
[2018-07-17 10:37] LABS: VBG HCO3 35 mEq/L (21-27); VBG PCO2 62 mmHg (41-51); VBG PH 7.36 pH Units (7.32-7.42); VBG PO2 127 mmHg (25-50)
[2018-07-17 11:05] LABS: Bilirubin,Urine Negative (Negative); Blood,Urine Negative (Negative); Clarity,Urine Clear (Clear); Color,Urine Yellow (Yellow); Glucose,Urine (UA) Normal (Normal); Ketones,Urine Negative (Negative); Leukocyte Esterase,Urine Negative (Negative); Nitrite,Urine Negative (Negative); Protein,Urine Trace mg/dL (Neg-Trace); Specific Gravity,Urine 1.005 (1.010-1.025); Urobilinogen,Urine Normal (Normal)
[2018-07-17 11:08] LABS: Bacteria,Urine None Seen per hpf (None-Few); Hyaline Casts,Urine None Seen per lpf (None-Few); RBC,Urine 0-3 per hpf (0-3); Squamous Epithelial Cell,Urine Few per lpf (None-Few); WBC,Urine 0-3 per hpf (0-3)
[2018-07-17] MEDS: Ipratropium/Albuterol Neb 3 ML IH SCH ×4 (11:59→23:37)
[2018-07-17] MEDS: *HR* Heparin 5,000 UNIT/ML VIAL SQ SCH ×2 (14:00→20:16)
[2018-07-17] MEDS: Azithromycin 500 MG in D5% in Water 250 ML IVPB SCH (14:00)
[2018-07-17] MEDS ORDERED: ALPRAZolam 1 MG TABLET PO ONE (18:31)
[2018-07-17] MEDS ORDERED: Ondansetron 4 MG/2 ML VIAL IVP PRN (18:32)
--- NOTE | 2018-07-17 20:52 | Event Note ---
Date of Encounter: 07/17/18 Time of Encounter: 20:50 Pt c/o 10/10 chest pain, received one dose of nitro SL, EKG no acute change. will cycle troponin.
[2018-07-18 01:15] LABS: Hemoglobin 9.2 g/dL (11.5-15.4); Mean Corpuscular HGB Conc 30.7 g/dL (31.6-35.5); Mean Corpuscular Hemoglobin 28.9 pg (28.0-33.3); Mean Corpuscular Volume 94.3 fL (83.0-100.0); Mean Platelet Volume 10.2 fL (9.4-12.4); Platelet Count 209 K/mcL (140-400); Red Blood Count 3.18 M/mcL (3.82-4.97); Red Cell Distribution Width 13.7 % (11.5-14.5)
[2018-07-18 01:28] LABS: BUN/Creatinine Ratio 26 (6-26); Blood Urea Nitrogen 22 mg/dL (6-20); Calcium 9.5 mg/dL (8.6-10.3); Carbon Dioxide 29 mEq/L (23-29); Chloride 104 mEq/L (98-107); Glucose 147 mg/dL (70-105); Osmolality,Calculated 294 (280-300); Potassium 5.3 mEq/L (3.5-5.1); Sodium 139 mEq/L (136-145); eGFR For Non-African Americans > 60 (> 60)
[2018-07-18] MEDS: Ipratropium/Albuterol Neb 3 ML IH SCH ×5 (03:26→19:59)
[2018-07-18] MEDS: *HR* Heparin 5,000 UNIT/ML VIAL SQ SCH ×3 (06:02→20:41)
[2018-07-18] MEDS: Budesonide/Formoterol 80/4.5 MDI IH SCH (07:42)
[2018-07-18] MEDS: Aspirin Enteric Coated 81 MG Tablet PO SCH (08:22)
[2018-07-18] MEDS ORDERED: MethylPREDNISolone 40 MG/ML VIAL IVP SCH (09:00)
[2018-07-18] MEDS: Azithromycin 500 MG in D5% in Water 250 ML IVPB SCH (10:30)
[2018-07-18] MEDS: *HR* HYDROcodone/Acet 5/325 mg TABLET PO PRN ×2 (12:24→20:40)
--- NOTE | 2018-07-18 14:28 | Internal Med Progress Note ---
Hospitalist Progress Note - Encounter Date of Encounter: 07/18/18 Time of Encounter: 14:26 - Subjective Interval History: Patient seen and evaluated at bedside, alert and oriented 4 days. She reports that she takes Xanax 3 times a day. But they yesterday she was not able to take her medication because she could not find it. Then she started experiencing tremors, and changing her mental status. - Exam Vitals: Temp Pulse Resp BP Pulse Ox 98.4 F 98 18 124/69 94 07/18/18 08:05 07/18/18 08:05 07/18/18 08:05 07/18/18 08:05 07/18/18 08:05 Exam: General: Alert and oriented 4. In not acute distress. Skin:Normal color, no rash, no lesions. HEENT:EOM, pupils equal, round and reactive. Cardiovascular: RRR, Normal S1 & S2, no rubs, murmurs or gallops. Lungs: Clear to auscultation bilaterally, no wheezes or crackles. Abdomen: Obese Soft, non-tender, no rigidity. NABS in all 4 quadrants. Extremities:No edema or tenderness, no joint swelling or clubbing. Neurological:Normal cognition and motor skills. Rest of the physical exam is non contributory - Assessment and Plan (1) COPD (chronic obstructive pulmonary disease) Current Visit: Yes Status: Chronic Assessment and Plan: Lungs are clear to auscultation bilaterally Decrease Solu-Medrol to 40 mg once a day. Continue azithromycin IV Continue Duo-nebs scheduled on symbicort (2) Hyperlipidemia Current Visit: No Status: Chronic Assessment and Plan: On atorvastatin 40 mg by mouth at bedtime (3) CAD (coronary artery disease) Current Visit: No Status: Chronic Assessment and Plan: On statins plus aspirin. (4) Anxiety Current Visit: Yes Status: Acute (5) Altered mental status Current Visit: Yes Status: Resolved Assessment and Plan: Most likely due to missing her anxiety medications. Patient was not able to take her medications yesterday, did not find them. (6) Hypertension Current Visit: Yes Status: Chronic Assessment and Plan: Blood pressure well controlled. We will resume patient home antihypertensive medication. (7) Morbid obesity Current Visit: No Status: Chronic DVT Prophylaxis: Patient on Heparin 5000 units SubQ BID. - Summary of Assessment and Plan Summary of Assessment and Plan: Patient to continue IV steroids and Nebs. Potential discharge tomorrow. - Time Spent with Patient Total time spent is greater than 50% in coordination of care (as documented) at patient's floor/unit and/or counseling patient: 25 - 35 minutes Plan of Care Discussed with: patient Internal Medicine: Result - Labs CBC & Chem 7: 07/18/18 00:49 07/18/18 00:49 Labs: Short CBC 07/18/18 Range/Units 00:49 WBC 8.0 (4.3-11.1) K/mcL Hgb 9.2 L (11.5-15.4) g/dL Hct 30.0 L (35.3-44.9) % Plt Count 209 (140-400) K/mcL BMP 07/18/18 00:49 Sodium 139 Potassium 5.3 H Chloride 104 Carbon Dioxide 29 BUN 22 H Creatinine 0.85 Glucose 147 H Calcium 9.5 Cardiac Enzymes 07/17/18 07/18/18 Range/Units 20:54 00:49 Troponin I < 0.03 < 0.03 (< 0.04) ng/mL - ABG Interpretation ABG results: PT/INR, D-dimer PT 11.1 Seconds (9.4-12.1) 07/17/18 08:59 Consult Discharge Plan - Plan Referrals: Sydney Mendoza MD [Primary Care Provider] - (1) COPD (chronic obstructive pulmonary disease) Qualifiers: COPD type: unspecified COPD Qualified Code(s): J44.9 - Chronic obstructive pulmonary disease, unspecified (2) Hyperlipidemia Qualifiers: Hyperlipidemia type: unspecified Qualified Code(s): E78.5 - Hyperlipidemia, unspecified (3) CAD (coronary artery disease) Qualifiers: Coronary Disease-Associated Artery/Lesion type: [place] artery [place] vs. transplanted heart: [place] heart Associated angina: without angina Qualified Code(s): I25.10 - Atherosclerotic heart disease of [place] coronary artery without angina pectoris (5) Altered mental status Qualifiers: Altered mental status type: unspecified Qualified Code(s): R41.82 - Altered mental status, unspecified (6) Hypertension Qualifiers: Hypertension type: unspecified Qualified Code(s): I10 - Essential (primary) hypertension
[2018-07-18] MEDS: Furosemide 40 MG TABLET PO SCH (15:06)
[2018-07-18] MEDS: ALPRAZolam 1 MG TABLET PO PRN ×2 (16:34→20:41)
[2018-07-19] MEDS: ALPRAZolam 1 MG TABLET PO PRN (04:40)
[2018-07-19] MEDS: *HR* Heparin 5,000 UNIT/ML VIAL SQ SCH (04:40)
[2018-07-19 06:28] VITALS: BP 119/68
[2018-07-19] MEDS: Budesonide/Formoterol 80/4.5 MDI IH SCH (07:59)
[2018-07-19] MEDS: Furosemide 40 MG TABLET PO SCH (09:00)
[2018-07-19] MEDS ORDERED: MethylPREDNISolone 40 MG/ML VIAL IVP SCH (09:00)
[2018-07-19] MEDS: *HR* HYDROcodone/Acet 5/325 mg TABLET PO PRN (09:00)
[2018-07-19] MEDS: Aspirin Enteric Coated 81 MG Tablet PO SCH (09:01)
--- NOTE | 2018-07-19 09:02 | Discharge Summary ---
- NOTES TO OUTPATIENT PROVIDER Notes to Outpatient Provider: Follow up with your PCP within a week to follow your potassium level. Date of Encounter: 07/19/18 Time of Encounter: 08:58 - Discharge Diagnosis (1) COPD (chronic obstructive pulmonary disease) Priority: Primary Status: Chronic Qualifiers: COPD type: unspecified COPD Qualified Code(s): J44.9 - Chronic obstructive pulmonary disease, unspecified (2) Hyperlipidemia Priority: Secondary Status: Chronic Qualifiers: Hyperlipidemia type: unspecified Qualified Code(s): E78.5 - Hyperlipidemia , unspecified (3) CAD (coronary artery disease) Priority: Secondary Status: Chronic Qualifiers: Coronary Disease-Associated Artery/Lesion type: [place] artery [place] vs. transplanted heart: [place] heart Associated angina: without angina Qualified Code(s): I25.10 - Atherosclerotic heart disease of [place] coronary artery without angina pectoris (4) Anxiety Priority: Secondary Status: Chronic (5) Altered mental status Priority: Secondary Status: Resolved Qualifiers: Altered mental status type: unspecified Qualified Code(s): R41.82 - Altered mental status, unspecified (6) Hypertension Priority: Secondary Status: Chronic Qualifiers: Hypertension type: unspecified Qualified Code(s): I10 - Essential (primary ) hypertension (7) Morbid obesity Priority: Secondary Status: Chronic Hospital course: Ms. Bella is a 57 year old female past medical history of anxiety, COPD, hypertension and diabetes. Patient presented to the emergency room due to change in mental status, associated with jittering, and tremors. Patient reported that she takes xanax 1tab TID, but she was not able to take the medication the day before presenting to the ED. His change in metal status resolved after the patient was re-started on Xanax. Patient was also found to be on COPD exacerbation, for which was treated with Nebs plus IV steroids. Acute symptoms have resolved and patient is clinically stable to be transition to PO steroids and DC home. Recommended to follow up with her PCP to have a BMP done within a week, as her potassium level is borderline elevated and patient on Lisinopril. - Time Spent with Patient Total time spent providing and/or coordinating discharge services: Less than 30 minutes - Discharge Medications Prescriptions: Azithromycin [Azithromycin 6-Tab Pack] 250 mg PO PER PKG DI #6 tab Home Medications: ALPRAZolam [Xanax 1 MG Tablet] 1 tab PO TID 06/07/16 [History] Citalopram Hydrobromide [Celexa] 40 mg PO DAILY 06/07/16 [History] Furosemide [Lasix] 40 mg PO DAILY 06/07/16 [History] Oxygen 3 - 5 l NS AD 06/07/16 [History] Aspirin [Lo-Dose Aspirin EC] 81 mg PO DAILY 12/07/16 [History] Atorvastatin [Lipitor] 40 mg PO DAILY 12/07/16 [History] Fluticasone/Salmeterol [Advair 250-50 Diskus] 2 puff IH DAILY 12/07/16 [History] metFORMIN [Glucophage] 500 mg PO 0800 #30 tablet 09/08/17 [Rx] Gabapentin [Neurontin] 400 mg PO TID 07/17/18 [History] Tiotropium [Spiriva] 1 puff IH DAILY 07/17/18 [History] Azithromycin [Azithromycin 6-Tab Pack] 250 mg PO PER PKG DI #6 tab 07/19/18 [Rx] Allergies/Adverse Reactions: 3 Allergy/AdvReac Type Severity Reaction Status Date / Time No Known Allergies Allergy Verified 07/17/18 11:05 Date of admission: 07/18/18 16:23 Primary care physician: Sydney Mendoza MD - Constitutional Vitals: Temp Pulse Resp BP Pulse Ox 97.7 F 83 16 119/68 95 07/19/18 06:26 07/19/18 06:26 07/19/18 08:00 07/19/18 06:26 07/19/18 08:00 Exam: General: Alert and oriented 4. In not acute distress. Cardiovascular: RRR, Normal S1 & S2, no rubs, murmurs or gallops. Lungs: Clear to auscultation bilaterally, no wheezes or crackles. Abdomen: Obese Soft, non-tender, no rigidity. NABS in all 4 quadrants. Extremities: No edema or tenderness, no joint swelling or clubbing. Neurological: Normal cognition and motor skills. Rest of the physical exam is non contributory - Patient Status Disposition: Home, Self-Care Condition: Good Functional capacity at discharge: independent ambulation Overall status at discharge: patient is back to baseline - Discharge Instructions Follow Up With: Sydney Mendoza MD [Primary Care Provider] - 07/21/18 9:00 am - Diet and Activity Activity: resume usual activities as tolerated Diet: diabetic diet, low salt diet
--- NOTE | 2018-07-20 10:09 | Electrocardiograph Report ---
[place] [id number] Test Date: 2018-07-17 Pat Name: Imelda Bella Department: [id number] Room: 3B Gender: F Partnership Development Manager: : 1960 Requested By: Ra Hollins Order Number: [id number] Reading MD: Carlos Lea Measurements Intervals [place] Rate: 87 P: 71 NM: 165 QRS: 2 QRSD: 148 T: 17 QT: 389 QTc: 468 Interpretive Statements Sinus rhythm Consider left atrial enlargement Right bundle branch block Electronically Signed On 07-20-2018 10:07:46 EDT by Carlos Lea
--- NOTE | 2018-07-20 17:35 | Electrocardiograph Report ---
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
== END 2018-07-19 10:30 | disposition home or self-care (01) | DRG 191 ==
LOC: EMEROOARM 08:28 → 3BNU 08:28 → SUATTDRO 07-18 16:23
PROVIDERS: ADMIT Internal Medicine; ATTEND Internal Medicine

== ENCOUNTER 2018-09-05 19:42 | Inpatient (IN) ==
--- NOTE | 2018-09-05 19:56 | Emergency Department Note ---
Disposition Clinical Impression: Hypoxia Sepsis Qualifiers: Sepsis type: sepsis due to unspecified organism Qualified Code(s): A41.9 - Sepsis, unspecified organism Pneumonia Qualifiers: Pneumonia type: due to unspecified organism Laterality: unspecified laterality Lung location: unspecified part of lung Qualified Code(s): J18.9 - Pneumonia, unspecified organism Acute and chronic respiratory failure Qualifiers: Respiratory failure complication: hypoxia Qualified Code(s): J96.21 - Acute and chronic respiratory failure with hypoxia Leukocytosis Qualifiers: Leukocytosis type: unspecified Qualified Code(s): D72.829 - Elevated white blood cell count, unspecified Anemia Qualifiers: Anemia type: unspecified type Qualified Code(s): D64.9 - Anemia, unspecified Disposition: Admitted As Inpatient Condition: Fair Forms: ED Satisfaction Letter Time of Disposition: 22:28 General Adult HPI - General Chief complaint: ED Shortness of Breath/Dyspnea Stated complaint: gogo Time Seen by Provider: 09/05/18 19:50 Source: patient, EMS Mode of arrival: EMS Limitations: altered mental status Nursing Notes Reviewed: Yes Vital Signs Reviewed: Yes - History of Present Illness HPI Narrative: Patient is a 51-year-old female that presents the emergency department with hypoxia and altered mentation. EMS reports that family called the squad due to being unable to get the patient into the vehicle that ran to the hospital. They stated that she had been not acting herself and has been having a drop in her oxygen saturation. EMS reports that she does wear 4 L of oxygen home and wear CPAP at night. EMS also reported that they had a temperature of 101 in transport. States that when they initially found her at the scene she was an ox ygen saturation of 80. The parotid nonrebreather and her oxygen saturations did increase into the mid 90s. On arrival the patient still was altered and was on nasal cannula. Pain Scale: 0 - Related Data Home Medications Medication Instructions Recorded Confirmed ALPRAZolam [Xanax 1 MG Tablet] 1 tab PO TID 06/07/16 07/17/18 Citalopram Hydrobromide [Celexa] 40 mg PO DAILY 06/07/16 07/17/18 Furosemide [Lasix] 40 mg PO DAILY 06/07/16 07/17/18 Oxygen 3 - 5 l NS AD 06/07/16 07/17/18 Aspirin [Lo-Dose Aspirin EC] 81 mg PO DAILY 12/07/16 07/17/18 Atorvastatin [Lipitor] 40 mg PO DAILY 12/07/16 07/17/18 Fluticasone/Salmeterol [Advair 2 puff IH DAILY 12/07/16 07/17/18 250-50 Diskus] Gabapentin [Neurontin] 400 mg PO TID 07/17/18 07/17/18 Tiotropium [Spiriva] 1 puff IH DAILY 07/17/18 07/17/18 Previous Rx's Medication Instructions Recorded metFORMIN [Glucophage] 500 mg PO 0800 #30 tablet 09/08/17 Allergies Allergy/AdvReac Type Severity Reaction Status Date / Time No Known Allergies Allergy Verified 07/17/18 11:05 All systems ED: reviewed and negative except as stated. Limitations: ROS unobtainable due to patients medical condition Constitutional: Reports: fever Respiratory: Reports: cough, dyspnea, other (hypoxia) Past Medical History - Past Medical History Medical history: Reports: COPD, hyperlipidemia, myocardial infarction Surgical history: Reports: cholecystectomy, hysterectomy, orthopedic, other Psychiatric history: Reports: anxiety, depression - Social History Smoking Status: Former smoker Smokeless Tobacco Status: No Alcohol use: Reports: rarely Drug use: Reports: none Physical Exam - General Limitations: no limitations General appearance: alert, anxious - Head Head exam: atraumatic, normocephalic - Eye Eye exam: Present: normal appearance, EOMI - Neck Neck exam: Present: normal inspection, full ROM, trachea midline - Respiratory Respiratory exam: Present: normal lung sounds bilaterally, other (Decreased air movement bilaterally). Absent: respiratory distress, wheezes - Cardiovascular Cardiovascular exam: Present: regular rate, normal rhythm, normal heart sounds, +S1, +S2 - Abdominal Exam Abdominal exam: Present: soft, Non-Tender, normal bowel sounds - Neurological Exam Neurological exam: Present: alert, oriented X3 - Psychiatric Psychiatric exam: Present: normal affect, normal mood - Skin Skin exam: Present: warm, dry, intact Course Vital Signs Temperature 101.0 F H 09/05/18 19:44 Pulse Rate 104 09/05/18 19:44 Respiratory Rate 20 09/05/18 19:44 Blood Pressure 139/117 09/05/18 19:44 O2 Sat by Pulse Oximetry 93 09/05/18 19:44 Temperature 101.0 F H 09/05/18 19:44 Pulse Rate 89 09/05/18 22:37 Respiratory Rate 13 09/05/18 22:37 Blood Pressure 111/54 09/05/18 22:37 O2 Sat by Pulse Oximetry 93 09/05/18 22:37 Oxygen Delivery Oxygen Delivery Bipap Medical Decision Making - MDM Narrative Medical decision making narrative: Due to the patient presenting to the emergency department febrile and tachycardic with hypoxia and respiratory symptoms are concerned that the patient could be septic with potential pneumonia. A full laboratory workup including blood cultures, ABG, EKG and chest x-ray will be performed. Patient will likely require admission to the hospital for her symptoms. Patient was put on BiPAP shortly after arrival. Patient does have an elevated white count of 11.8. Patient does have a mild anemia of 9.6. Patient's ABG had a CO2 in the upper 50s. Patient has required BiPAP or here in the emergency department. Patient has otherwise been hemodynamically stable. Remainder laboratory testing is relatively unremarkable. The patient's chest x-ray did not show any acute findings however after review by myself and the attending with felt that there is questionable infiltrate in the right lower lobe so a CT scan of the chest was obtained. This showed multiple nodules that could potentially be infectious. Due to the patient being tachycardic and febrile upon arrival with hypoxia there is a high concern for possible pneumonia. The patient was started on antibiotics of vancomycin and Zosyn. Patient will be admitted to the hospital for further evaluation and management. I called and spoke with Dr Andrade he is except the patient to their service. Patient be admitted to the hospital this time for further evaluation and management of her respiratory symptoms. Patient is likely septic secondary to pneumonia. - Medical Records Medical records reviewed: Yes I reviewed the patient's medical records. - Lab Data Lab results reviewed: Yes I reviewed the patient's lab results. Result diagrams: 09/05/18 20:00 09/05/18 20:00 Lab Results 09/05/18 09/05/18 09/05/18 Range/Units 19:58 20:00 20:00 WBC 11.8 H (4.3-11.1) K/mcL RBC 3.22 L (3.82-4.97) M/mcL Hgb 9.6 L (11.5-15.4) g/dL Hct 30.7 L (35.3-44.9) % MCV 95.3 (83.0-100.0) fL MCH 29.8 (28.0-33.3) pg MCHC 31.3 L (31.6-35.5) g/dL RDW 13.3 (11.5-14.5) % Plt Count 177 (140-400) K/mcL MPV 10.1 (9.4-12.4) fL Immature Gran % 0.6 (0-4) % Seg Neutrophils % 82.1 % Lymphocytes % 12.1 % Monocytes % 4.0 % Eosinophils % 1.0 % Basophils % 0.2 % Neutrophils # 9.7 H (1.6-8.9) K/mcL Lymphocytes # 1.4 (0.6-4.6) K/mcL Monocytes # 0.5 (0.0-1.3) K/mcL Eosinophils # 0.1 (0.0-0.6) K/mcL Basophils # 0.0 (0.0-0.2) K/mcL PT 11.9 (9.4-12.1) Seconds INR 1.1 APTT 31.3 (26.0-36.0) Seconds Sample Site R Radial ABG pH 7.37 (7.32-7.45) pH Units ABG pCO2 59 H (35-45) mmHg ABG pO2 140 H (85-104) mmHg ABG HCO3 34 H (21-27) mEq/L ABG Total CO2 36 H (20-26) mEq/L ABG O2 Saturation 99 H (95-98) % ABG Base Excess 7 H (-2 to 3) mEq/L O2 Delivery Device BiPAP Inspired O2 50.0 (1-15=lpm [id number]=%) PEEP 8 cm H2O Sodium (136-145) mEq/L Potassium (3.5-5.1) mEq/L Chloride (98-107) mEq/L Carbon Dioxide (23-29) mEq/L BUN (6-20) mg/dL Creatinine (0.60-1.20) mg/dL Est GFR ( Amer) (> 60) Est GFR (Non-Af Amer) (> 60) BUN/Creatinine Ratio (6-26) Glucose (70-105) mg/dL Calculated Osmolality (280-300) Lactic Acid (0.5-2.2) mmol/L Calcium (8.6-10.3) mg/dL Phosphorus (2.7-4.5) mg/dL Magnesium (1.6-2.6) mg/dL Total Bilirubin (0.3-1.0) mg/dL Direct Bilirubin (0.0-0.2) mg/dL Indirect Bilirubin (0.0-1.2) mg/dL AST (13-39) Units/L ALT (7-52) Units/L Alkaline Phosphatase (34-104) Units/L Troponin I (< 0.04) ng/mL Serum Total Protein (6.4-8.9) g/dL Albumin (3.5-5.7) g/dL Globulin (2.4-3.5) g/dL Albumin/Globulin Ratio (1.1-2.2) Urine Color (Yellow) Urine Clarity (Clear) Urine pH (5.0-8.0) pH Units Ur Specific [place] (1.010-1.025) Urine Protein (Neg-Trace) mg/dL Urine Glucose (UA) (Normal) mg/dL Urine Ketones (Negative) mg/dL Urine Blood (Negative) Urine Nitrite (Negative) Urine Bilirubin (Negative) Urine Urobilinogen (Normal) mg/dL Ur Leukocyte Esterase (Negative) Ur Culture Indicated? (NO) 09/05/18 09/05/18 09/05/18 Range/Units 20:00 20:00 20:08 WBC (4.3-11.1) K/mcL RBC (3.82-4.97) M/mcL Hgb (11.5-15.4) g/dL Hct (35.3-44.9) % MCV (83.0-100.0) fL MCH (28.0-33.3) pg MCHC (31.6-35.5) g/dL RDW (11.5-14.5) % Plt Count (140-400) K/mcL MPV (9.4-12.4) fL Immature Gran % (0-4) % Seg Neutrophils % % Lymphocytes % % Monocytes % % Eosinophils % % Basophils % % Neutrophils # (1.6-8.9) K/mcL Lymphocytes # (0.6-4.6) K/mcL Monocytes # (0.0-1.3) K/mcL Eosinophils # (0.0-0.6) K/mcL Basophils # (0.0-0.2) K/mcL PT (9.4-12.1) Seconds INR APTT (26.0-36.0) Seconds Sample Site ABG pH (7.32-7.45) pH Units ABG pCO2 (35-45) mmHg ABG pO2 (85-104) mmHg ABG HCO3 (21-27) mEq/L ABG Total CO2 (20-26) mEq/L ABG O2 Saturation (95-98) % ABG Base Excess (-2 to 3) mEq/L O2 Delivery Device Inspired O2 (1-15=lpm cz05-324=%) PEEP cm H2O Sodium 139 (136-145) mEq/L Potassium 4.5 (3.5-5.1) mEq/L Chloride 103 (98-107) mEq/L Carbon Dioxide 32 H (23-29) mEq/L BUN 23 H (6-20) mg/dL Creatinine 0.91 (0.60-1.20) mg/dL Est GFR ( Amer) > 60 (> 60) Est GFR (Non-Af Amer) > 60 (> 60) BUN/Creatinine Ratio 25 (6-26) Glucose 157 H (70-105) mg/dL Calculated Osmolality 295 (280-300) Lactic Acid 0.6 (0.5-2.2) mmol/L Calcium 9.1 (8.6-10.3) mg/dL Phosphorus 1.4 L (2.7-4.5) mg/dL Magnesium 1.8 (1.6-2.6) mg/dL Total Bilirubin 0.6 (0.3-1.0) mg/dL Direct Bilirubin 0.1 (0.0-0.2) mg/dL Indirect Bilirubin 0.5 (0.0-1.2) mg/dL AST 18 (13-39) Units/L ALT 24 (7-52) Units/L Alkaline Phosphatase 78 (34-104) Units/L Troponin I 0.03 (< 0.04) ng/mL Serum Total Protein 6.9 (6.4-8.9) g/dL Albumin 3.9 (3.5-5.7) g/dL Globulin 3.0 (2.4-3.5) g/dL Albumin/Globulin Ratio 1.3 (1.1-2.2) Urine Color Yellow (Yellow) Urine Clarity Clear (Clear) Urine pH 6.0 (5.0-8.0) pH Units Ur Specific [place] 1.009 L (1.010-1.025) Urine Protein Negative (Neg-Trace) mg/dL Urine Glucose (UA) Normal (Normal) mg/dL Urine Ketones Negative (Negative) mg/dL Urine Blood Negative (Negative) Urine Nitrite Negative (Negative) Urine Bilirubin Negative (Negative) Urine Urobilinogen Normal (Normal) mg/dL Ur Leukocyte Esterase Negative (Negative) Ur Culture Indicated? NO (NO) - Radiology Data Radiology results reviewed: Yes I reviewed the patient's radiology results. Chest X-Ray 09/05/18 19:52 IMPRESSION: No gross acute pulmonary disease. Suboptimal lung expansion for the exam. Follow-up full inspiration PA and lateral chest may be useful for better characterization of pulmonary findings. Calcific atherosclerotic disease aorta. D/ / Chinmay Rodriguez / Chinmay Rodriguez Interpreting Provider: Chinmay Rodriguez Head CT 09/05/18 20:01 IMPRESSION: No acute intracranial abnormality. D/ / 09/05/2018 21:52:40 Vamsi Garrido MD / miriam Interpreting Provider: Vamsi Garrido MD Chest CT 09/05/18 21:05 IMPRESSION: 1. Exam is diminished in detail because of breathing motion blurring detail. 2. Several new pulmonary nodules bilateral lower lobes. These could be infectious or neoplastic. Correlate with clinical presentation and findings. Bronchoscopic evaluation or PET-CT imaging may be useful. 3. Nonspecific pre-vascular lymph node enlargement is probably reactive. 4. Calcific atherosclerosis aorta and coronary arteries. D/ / Chinmay Rodriguez / Chinmay Rodriguez Interpreting Provider: Chinmay Rodriguez - EKG Data EKG #1 EKG attestation: Yes I reviewed and interpreted this EKG. EKG results narrative: EKG shows a sinus tachycardia at a rate of 103 bpm, ME interval of 143, QRS duration of 145, QTC of 485. There is evidence of a right bundle branch block seen on her EKG. This is compared to previous EKG on 08/11/18 which showed a sinus tachycardia at a rate of 127 bpm with a right bundle branch block present at that time.
[2018-09-05 20:03] LABS: ABG Base Excess 7 mEq/L (-2 to 3); ABG HCO3 34 mEq/L (21-27); ABG Oxygen Saturation 99 % (95-98); ABG PCO2 59 mmHg (35-45); ABG PH 7.37 pH Units (7.32-7.45); ABG PO2 140 mmHg (85-104); ABG TCO2 36 mEq/L (20-26); Blood Gas PEEP 8 cm H2O
[2018-09-05 20:13] LABS: Basophils % 0.2 %; Eosinophils # 0.1 K/mcL (0.0-0.6); Hematocrit 30.7 % (35.3-44.9); Hemoglobin 9.6 g/dL (11.5-15.4); Immature Granulocytes % 0.6 % (0-4); Lymphocytes # 1.4 K/mcL (0.6-4.6); Lymphocytes % 12.1 %; Mean Corpuscular HGB Conc 31.3 g/dL (31.6-35.5); Mean Corpuscular Hemoglobin 29.8 pg (28.0-33.3); Mean Corpuscular Volume 95.3 fL (83.0-100.0); Mean Platelet Volume 10.1 fL (9.4-12.4); Monocytes # 0.5 K/mcL (0.0-1.3); Neutrophils # 9.7 K/mcL (1.6-8.9); Platelet Count 177 K/mcL (140-400); Red Blood Count 3.22 M/mcL (3.82-4.97); Red Cell Distribution Width 13.3 % (11.5-14.5); Segmented Neutrophils % 82.1 %
[2018-09-05 20:20] LABS: Bilirubin,Urine Negative (Negative); Blood,Urine Negative (Negative); Clarity,Urine Clear (Clear); Color,Urine Yellow (Yellow); Glucose,Urine (UA) Normal (Normal); Ketones,Urine Negative (Negative); Leukocyte Esterase,Urine Negative (Negative); Nitrite,Urine Negative (Negative); Protein,Urine Negative (Neg-Trace); Specific Gravity,Urine 1.009 (1.010-1.025); Urobilinogen,Urine Normal (Normal)
[2018-09-05 20:22] LABS: INR 1.1; Prothrombin Time 11.9 Seconds (9.4-12.1)
[2018-09-05 20:24] LABS: Activated Partial Thrombo Time 31.3 Seconds (26.0-36.0)
[2018-09-05 20:42] LABS: Alanine Aminotransferase 24 Units/L (7-52); Albumin 3.9 g/dL (3.5-5.7); Albumin/Globulin Ratio 1.3 (1.1-2.2); Alkaline Phosphatase 78 Units/L (34-104); Aspartate Amino Transferase 18 Units/L (13-39); BUN/Creatinine Ratio 25 (6-26); Bilirubin,Direct 0.1 mg/dL (0.0-0.2); Bilirubin,Indirect 0.5 mg/dL (0.0-1.2); Bilirubin,Total 0.6 mg/dL (0.3-1.0); Blood Urea Nitrogen 23 mg/dL (6-20); Calcium 9.1 mg/dL (8.6-10.3); Carbon Dioxide 32 mEq/L (23-29); Chloride 103 mEq/L (98-107); Glucose 157 mg/dL (70-105); Magnesium 1.8 mg/dL (1.6-2.6); Osmolality,Calculated 295 (280-300); Phosphorous 1.4 mg/dL (2.7-4.5); Potassium 4.5 mEq/L (3.5-5.1); Sodium 139 mEq/L (136-145); Total Protein 6.9 g/dL (6.4-8.9); Troponin I 0.03 ng/mL (< 0.04); eGFR For Non-African Americans > 60 (> 60)
[2018-09-05] MEDS ORDERED: Piperacillin/Tazobactam 3.375 GM in 0.9 % Sodium Chloride Mini Bag 100 ML IVPB ONE (22:17)
[2018-09-05] MEDS ORDERED: Naloxone 0.4 MG/ML INJ IVP PRN (23:05)
--- NOTE | 2018-09-05 23:05 | Internal Med History&Physical ---
<Varun Velazquez - Last Filed: 09/06/18 03:15> Date of Encounter: 09/06/18 Time of Encounter: 00:15 Internal Medicine - H&P: HPI Chief complaint: AMS Admitted From: Emergency Dept Plans for Post Hospital Care: Home History of present illness: Ms. Bella is a 57 year old female with history of COPD, hyperlipidemia, myocardial infarction who presented to the ED from home due to respiratory distress and altered mental status. The patient was recently admitted to [facility] for similar presentation of respiratory failure with altered mental status and was discharged on 07/17/18. At the time of examination, the patient is extremely lethargic and unable to answer questions about her medical history or her cu rrent history of present illness. Most of her medical history and current history is obtained from previous documentation from prior providers. The patient presented to the ED with hypoxia and altered mental status earlier this evening. Apparently at that time the patient was having difficulty br eathing and was found to have a temperature of 101 as well as SPO2 is in the 80s. She does apparently use home oxygen and typically uses approximately 4L but was requiring more. At the time of presentation she was much more lethargic than she typically is, and was not breathing well. Apparently this is similar to her previous presentation in July. At that time she was treated for a COPD exacerbation, however it is also noted in her chart that there was some concern that she may have had possible benzodiazepine withdrawal because when she was restarted on her oral Xanax at that time she apparently started to regain some of her mental faculties as well. In the ED the patient was found to have tachycardia and fever. Labs were generally unemarkable, however ABG showed PaCO2 59. She had a chest CT which showed new pulmonary nodules that could represent infectious vs neplastic etiology. She was admitted for hypercapneic respiratory failure with encephalopathy and possible sepsis. Past Med Surg Social Fam HX - Past Medical History Medical history: COPD, hyperlipidemia, myocardial infarction Additional medical history: emphysema, CHF, Pre-diabetic Psychiatric history: anxiety, depression - Past Surgical History Surgical History: cholecystectomy, hysterectomy, orthopedic, other Additional surgical history: Right knee (Meniscus repair). - Social History Smoking Status: Former smoker Smokeless Tobacco Status: No Alcohol use: rarely Drug use: none - Family History Father Living Status: Hx Family Cardiac Disorders: Yes Hx Family Endocrine Disorder: Yes (DM) Mother Living Status: Hx Family Cardiac Disorders: Yes (CHF) Hx Family Cancer: Yes (Kidney) Internal Medicine - H&P: Meds ALPRAZolam [Xanax 1 MG Tablet] 1 tab PO TID 06/07/16 [History] Citalopram Hydrobromide [Celexa] 40 mg PO DAILY 06/07/16 [History] Furosemide [Lasix] 40 mg PO DAILY 06/07/16 [History] Oxygen 3 - 5 l NS AD 06/07/16 [History] Aspirin [Lo-Dose Aspirin EC] 81 mg PO DAILY 12/07/16 [History] Atorvastatin [Lipitor] 40 mg PO DAILY 12/07/16 [History] Fluticasone/Salmeterol [Advair 250-50 Diskus] 2 puff IH DAILY 12/07/16 [History] metFORMIN [Glucophage] 500 mg PO 0800 #30 tablet 09/08/17 [Rx] Gabapentin [Neurontin] 400 mg PO TID 07/17/18 [History] Tiotropium [Spiriva] 1 puff IH DAILY 07/17/18 [History] Allergy/AdvReac Type Severity Reaction Status Date / Time No Known Allergies Allergy Verified 07/17/18 11:05 ROS unobtainable: due to mental status All Systems PM: A 10-system review of systems was performed and is negative for pertinent findings except as documented above in the HPI. - Constitutional Vitals: Temp Pulse Resp BP Pulse Ox 101.0 F H 89 13 111/54 93 09/05/18 19:44 09/05/18 22:37 09/05/18 22:37 09/05/18 22:37 09/05/18 22:37 Exam: Gen: Vitals noted. No acute distress. Alert to physical and painful stimuli, oriented to person and place. Patient awakens momentarily but then immediately falls asleep again Eyes: anicteric sclerae, moist conjunctivae HENT: Atraumatic; oropharynx clear with moist mucous membranes and no mucosal ulcerations; normal hard and soft palate Neck: Trachea midline; supple, no thyromegaly or lymphadenopathy Cardiac: RRR, no murmur, +S1/S2 Pulmonary: CTA bilaterally, no wheezes, rales or rhonchi, equal chest expansion. Very poor air movement bilaterally on BiPAP Abdomen: soft, nontender, no guarding. No masses or hepatosplenomegaly Extremities: Trace BLE edema, nontender calf, no cyanosis or clubbing. Nonpitting edema present in the fingers Skin: Normal temperature, turgor and texture; no rash, ulcers or subcutaneous nodules Neuro: moves all extremities, no focal deficits. Internal Med - H&P Results - Labs CBC & Chem 7: 09/05/18 20:00 09/05/18 20:00 Labs: Short CBC 09/05/18 Range/Units 20:00 WBC 11.8 H (4.3-11.1) K/mcL Hgb 9.6 L (11.5-15.4) g/dL Hct 30.7 L (35.3-44.9) % Plt Count 177 (140-400) K/mcL Neutrophils # 9.7 H (1.6-8.9) K/mcL BMP 09/05/18 20:00 Sodium 139 Potassium 4.5 Chloride 103 Carbon Dioxide 32 H BUN 23 H Creatinine 0.91 Glucose 157 H Calcium 9.1 Cardiac Enzymes 09/05/18 Range/Units 20:00 Troponin I 0.03 (< 0.04) ng/mL Liver Function 09/05/18 Range/Units 20:00 Total Bilirubin 0.6 (0.3-1.0) mg/dL Direct Bilirubin 0.1 (0.0-0.2) mg/dL AST 18 (13-39) Units/L ALT 24 (7-52) Units/L Alkaline Phosphatase 78 (34-104) Units/L Albumin 3.9 (3.5-5.7) g/dL Urine 09/05/18 Range/Units 20:08 Urine Color Yellow (Yellow) Urine Clarity Clear (Clear) Urine pH 6.0 (5.0-8.0) pH Units Ur Specific [place] 1.009 L (1.010-1.025) Urine Protein Negative (Neg-Trace) mg/dL Urine Glucose (UA) Normal (Normal) mg/dL - ABG Interpretation ABG results: 09/05/18 19:58 ABG pH 7.37 ABG pCO2 59 H ABG pO2 140 H ABG HCO3 34 H ABG Total CO2 36 H ABG O2 Saturation 99 H ABG Base Excess 7 H - Impressions ITS Impressions Chest X-Ray 09/05/18 19:52 IMPRESSION: No gross acute pulmonary disease. Suboptimal lung expansion for the exam. Follow-up full inspiration PA and lateral chest may be useful for better characterization of pulmonary findings. Calcific atherosclerotic disease aorta. D/ / Chinmay Rodriguez / Chinmay Rodriguez Interpreting Provider: Chinmay Rodriguez Head CT 09/05/18 20:01 IMPRESSION: No acute intracranial abnormality. D/ / 09/05/2018 21:52:40 Vamsi Garrido MD / miriam Interpreting Provider: Vamsi Garrido MD Chest CT 09/05/18 21:05 IMPRESSION: 1. Exam is diminished in detail because of breathing motion blurring detail. 2. Several new pulmonary nodules bilateral lower lobes. These could be infectious or neoplastic. Correlate with clinical presentation and findings. Bronchoscopic evaluation or PET-CT imaging may be useful. 3. Nonspecific pre-vascular lymph node enlargement is probably reactive. 4. Calcific atherosclerosis aorta and coronary arteries. D/ / Chinmay Rodriguez / Chinmay Rodriguez Interpreting Provider: Chinmay Rodriguez - Assessment and plan (1) Acute on chronic respiratory failure with hypoxia and hypercapnia Current Visit: Yes Status: Acute Assessment and plan: Acute hypercapnic hypoxic respiratory failure Secondary to suspected pneumonia with COPD exacerbation New Nodules seen on CT which could demonstrate infectious etiology Temperature 101, heart rate 104 on admission, WBC 11.8 ABG 7.37/59/140/34 Plan BiPAP with continuous O2 supplementation Scheduled and PRN Duonebs IV Solumedrol 40mg Q8h IV Antibiotics for PNA (Vancomycin and zosyn) Repeat ABG in AM (2) Encephalopathy Current Visit: Yes Status: Acute Assessment and plan: Acute encephalopathy, likely multifactorial Suspected secondary to hypercapnic respiratory failure and infectious etiology, along with possible benzo withdrawal based on history Patient has been on BiPAP and has shown some improvement in mental status She has had history of these symptoms with improvement upon reinitiating benzos We will continue BiPAP, Xanax, And recheck labs in AM (3) Pneumonia Current Visit: Yes Status: Suspected Assessment and plan: Suspected HAP, do not suspect sepsis Patient is febrile, tachycardic and hypoxic/hypercapnic CT chest shows new nodules consistent with possible infectious etiology Given recent hospitalizations, will treat for suspected HAP empirically Blood cultures and Sputum cultures pending Strep and Legionella urine antigen pending Respiratory infection panel pending Start Vancomycin and Zosyn Day 1 Qualifiers: Pneumonia type: due to unspecified organism Laterality: unspecified laterality Lung location: unspecified part of lung Qualified Code(s): J18.9 - Pneumonia, unspecified organism (4) Acute exacerbation of chronic obstructive airways disease Current Visit: Yes Status: Acute Assessment and plan: Acute exacerbation of COPD Increased O2 demand, poor airflow, poor mentation Recent history of COPD exacerbation We will start IV Steroids, IV Antibiotics Scheduled and PRN Duonebs Continuous BiPAP (5) CAD (coronary artery disease) Current Visit: No Status: Chronic Assessment and plan: History of CAD Continue ASA, Statin Qualifiers: Coronary Disease-Associated Artery/Lesion type: [place] artery [place] vs. transplanted heart: [place] heart Associated angina: without angina Qualified Code(s): I25.10 - Atherosclerotic heart disease of [place] coronary artery w ithout angina pectoris (6) Morbid obesity Current Visit: No Status: Chronic (7) Pre-diabetes Current Visit: Yes Status: Acute Assessment and plan: Prediabetes on metformin Hold metformin in hospital ACHS Accuchecks, SSI TIDAC and HS (8) DVT prophylaxis Current Visit: No Status: Acute Assessment and plan: SQ Heparin - Time Spent With Patient Total time spent is greater than 50% in coordination of care (as documented) at patient's floor/unit and/or counseling patient: <Barrett Leigh A - Last Filed: 09/06/18 08:10> Date of Encounter: 09/06/18 Internal Medicine - H&P: HPI History of present illness: Ms. Bella is a 57 year old female All Systems PM: A 10-system review of systems was performed and is negative for pertinent findings except as documented above in the HPI. - Constitutional Vitals: Temp Pulse Resp BP Pulse Ox 97.6 F 77 19 121/78 92 09/06/18 07:58 09/06/18 07:58 09/06/18 07:58 09/06/18 07:58 09/06/18 07:58 Internal Med - H&P Results - Labs CBC & Chem 7: 09/06/18 03:27 09/06/18 03:27 Labs: Short CBC 09/05/18 09/06/18 Range/Units 20:00 03:27 WBC 11.8 H 10.5 (4.3-11.1) K/mcL Hgb 9.6 L 8.7 L (11.5-15.4) g/dL Hct 30.7 L 28.8 L (35.3-44.9) % Plt Count 177 162 (140-400) K/mcL Neutrophils # 9.7 H 8.8 (1.6-8.9) K/mcL BMP 09/05/18 09/06/18 20:00 03:27 Sodium 139 139 Potassium 4.5 4.8 Chloride 103 104 Carbon Dioxide 32 H 33 H BUN 23 H 23 H Creatinine 0.91 0.86 Glucose 157 H 152 H Calcium 9.1 8.7 Cardiac Enzymes 09/05/18 Range/Units 20:00 Troponin I 0.03 (< 0.04) ng/mL Liver Function 09/05/18 09/06/18 Range/Units 20:00 03:27 Total Bilirubin 0.6 0.5 (0.3-1.0) mg/dL Direct Bilirubin 0.1 (0.0-0.2) mg/dL AST 18 20 (13-39) Units/L ALT 24 26 (7-52) Units/L Alkaline Phosphatase 78 70 (34-104) Units/L Albumin 3.9 3.7 (3.5-5.7) g/dL Urine 09/05/18 Range/Units 20:08 Urine Color Yellow (Yellow) Urine Clarity Clear (Clear) Urine pH 6.0 (5.0-8.0) pH Units Ur Specific [place] 1.009 L (1.010-1.025) Urine Protein Negative (Neg-Trace) mg/dL Urine Glucose (UA) Normal (Normal) mg/dL - ABG Interpretation ABG results: 09/05/18 09/06/18 19:58 04:21 ABG pH 7.37 7.34 ABG pCO2 59 H 64 H ABG pO2 140 H 70 L ABG HCO3 34 H 35 H ABG Total CO2 36 H 36 H ABG O2 Saturation 99 H 92 L ABG Base Excess 7 H 7 H - Impressions ITS Impressions Chest X-Ray 09/05/18 19:52 IMPRESSION: No gross acute pulmonary disease. Suboptimal lung expansion for the exam. Follow-up full inspiration PA and lateral chest may be useful for better characterization of pulmonary findings. Calcific atherosclerotic disease aorta. D/ / Chinmay Rodriguez / Chinmay Rodriguez Interpreting Provider: Chinmay Rodriguez Head CT 09/05/18 20:01 IMPRESSION: No acute intracranial abnormality. D/ / 09/05/2018 21:52:40 Vamsi Garrido MD / miriam Interpreting Provider: Vamsi Garrido MD Chest CT 09/05/18 21:05 IMPRESSION: 1. Exam is diminished in detail because of breathing motion blurring detail. 2. Several new pulmonary nodules bilateral lower lobes. These could be infectious or neoplastic. Correlate with clinical presentation and findings. Bronchoscopic evaluation or PET-CT imaging may be useful. 3. Nonspecific pre-vascular lymph node enlargement is probably reactive. 4. Calcific atherosclerosis aorta and coronary arteries. D/ / Chinmay Rodriguez / Chinmay Rodriguez Interpreting Provider: Chinmay Rodriguez - Time Spent With Patient Total time spent is greater than 50% in coordination of care (as documented) at patient's floor/unit and/or counseling patient: - Attending Attestation I performed a history of physical examination of the patient and discussed her management with the resident. I reviewed the resident's note and agree with the documented findings and plan of care.
--- NOTE | 2018-09-05 23:06 | Emergency Department Note ---
Disposition Clinical Impression: Hypoxia Sepsis Qualifiers: Sepsis type: sepsis due to unspecified organism Qualified Code(s): A41.9 - Sepsis, unspecified organism Pneumonia Qualifiers: Pneumonia type: due to unspecified organism Laterality: unspecified laterality Lung location: unspecified part of lung Qualified Code(s): J18.9 - Pneumonia, unspecified organism Acute and chronic respiratory failure Qualifiers: Respiratory failure complication: hypoxia Qualified Code(s): J96.21 - Acute and chronic respiratory failure with hypoxia Leukocytosis Qualifiers: Leukocytosis type: unspecified Qualified Code(s): D72.829 - Elevated white blood cell count, unspecified Anemia Qualifiers: Anemia type: unspecified type Qualified Code(s): D64.9 - Anemia, unspecified Disposition: Admitted As Inpatient Condition: Fair General Adult HPI - General Chief complaint: ED Shortness of Breath/Dyspnea Stated complaint: gogo Time Seen by Provider: 09/05/18 19:50 Source: patient, EMS Mode of arrival: EMS Limitations: no limitations Nursing Notes Reviewed: Yes Vital Signs Reviewed: Yes - History of Present Illness Pain Scale: 0 - Related Data Home Medications Medication Instructions Recorded Confirmed ALPRAZolam [Xanax 1 MG Tablet] 1 tab PO TID 06/07/16 09/05/18 Citalopram Hydrobromide [Celexa] 40 mg PO DAILY 06/07/16 09/05/18 Furosemide [Lasix] 40 mg PO DAILY 06/07/16 09/05/18 Oxygen 3 - 5 l NS AD 06/07/16 09/05/18 Aspirin [Lo-Dose Aspirin EC] 81 mg PO DAILY 12/07/16 09/05/18 Atorvastatin [Lipitor] 40 mg PO DAILY 12/07/16 09/05/18 Fluticasone/Salmeterol [Advair 2 puff IH DAILY 12/07/16 09/05/18 250-50 Diskus] Gabapentin [Neurontin] 400 mg PO TID 07/17/18 09/05/18 Tiotropium [Spiriva] 1 puff IH DAILY 07/17/18 09/05/18 Previous Rx's Medication Instructions Recorded metFORMIN [Glucophage] 500 mg PO 0800 #30 tablet 09/08/17 Allergies Allergy/AdvReac Type Severity Reaction Status Date / Time No Known Allergies Allergy Verified 07/17/18 11:05 Constitutional: Reports: fever Respiratory: Reports: cough, dyspnea, other (hypoxia) Past Medical History - Past Medical History Medical history: Reports: COPD, hyperlipidemia, myocardial infarction Surgical history: Reports: cholecystectomy, hysterectomy, orthopedic, other Psychiatric history: Reports: anxiety, depression - Social History Smoking Status: Former smoker Smokeless Tobacco Status: No Alcohol use: Reports: rarely Drug use: Reports: none Physical Exam - General Limitations: no limitations General appearance: alert, anxious Course Vital Signs Temperature 101.0 F H 09/05/18 19:44 Pulse Rate 104 09/05/18 19:44 Respiratory Rate 20 09/05/18 19:44 Blood Pressure 139/117 09/05/18 19:44 O2 Sat by Pulse Oximetry 93 09/05/18 19:44 Temperature 101.0 F H 09/05/18 19:44 Pulse Rate 89 09/05/18 22:37 Respiratory Rate 13 09/05/18 22:37 Blood Pressure 111/54 09/05/18 22:37 O2 Sat by Pulse Oximetry 93 09/05/18 22:37 Oxygen Delivery Oxygen Delivery Bipap Medical Decision Making - Medical Records Medical records reviewed: Yes I reviewed the patient's medical records. - Lab Data Lab results reviewed: Yes I reviewed the patient's lab results. Result diagrams: 09/05/18 20:00 09/05/18 20:00 Lab Results 09/05/18 09/05/18 09/05/18 Range/Units 19:58 20:00 20:00 WBC 11.8 H (4.3-11.1) K/mcL RBC 3.22 L (3.82-4.97) M/mcL Hgb 9.6 L (11.5-15.4) g/dL Hct 30.7 L (35.3-44.9) % MCV 95.3 (83.0-100.0) fL MCH 29.8 (28.0-33.3) pg MCHC 31.3 L (31.6-35.5) g/dL RDW 13.3 (11.5-14.5) % Plt Count 177 (140-400) K/mcL MPV 10.1 (9.4-12.4) fL Immature Gran % 0.6 (0-4) % Seg Neutrophils % 82.1 % Lymphocytes % 12.1 % Monocytes % 4.0 % Eosinophils % 1.0 % Basophils % 0.2 % Neutrophils # 9.7 H (1.6-8.9) K/mcL Lymphocytes # 1.4 (0.6-4.6) K/mcL Monocytes # 0.5 (0.0-1.3) K/mcL Eosinophils # 0.1 (0.0-0.6) K/mcL Basophils # 0.0 (0.0-0.2) K/mcL PT 11.9 (9.4-12.1) Seconds INR 1.1 APTT 31.3 (26.0-36.0) Seconds Sample Site R Radial ABG pH 7.37 (7.32-7.45) pH Units ABG pCO2 59 H (35-45) mmHg ABG pO2 140 H (85-104) mmHg ABG HCO3 34 H (21-27) mEq/L ABG Total CO2 36 H (20-26) mEq/L ABG O2 Saturation 99 H (95-98) % ABG Base Excess 7 H (-2 to 3) mEq/L O2 Delivery Device BiPAP Inspired O2 50.0 (1-15=lpm ml64-357=%) PEEP 8 cm H2O Sodium (136-145) mEq/L Potassium (3.5-5.1) mEq/L Chloride (98-107) mEq/L Carbon Dioxide (23-29) mEq/L BUN (6-20) mg/dL Creatinine (0.60-1.20) mg/dL Est GFR ( Amer) (> 60) Est GFR (Non-Af Amer) (> 60) BUN/Creatinine Ratio (6-26) Glucose (70-105) mg/dL Calculated Osmolality (280-300) Lactic Acid (0.5-2.2) mmol/L Calcium (8.6-10.3) mg/dL Phosphorus (2.7-4.5) mg/dL Magnesium (1.6-2.6) mg/dL Total Bilirubin (0.3-1.0) mg/dL Direct Bilirubin (0.0-0.2) mg/dL Indirect Bilirubin (0.0-1.2) mg/dL AST (13-39) Units/L ALT (7-52) Units/L Alkaline Phosphatase (34-104) Units/L Troponin I (< 0.04) ng/mL Serum Total Protein (6.4-8.9) g/dL Albumin (3.5-5.7) g/dL Globulin (2.4-3.5) g/dL Albumin/Globulin Ratio (1.1-2.2) Urine Color (Yellow) Urine Clarity (Clear) Urine pH (5.0-8.0) pH Units Ur Specific [place] (1.010-1.025) Urine Protein (Neg-Trace) mg/dL Urine Glucose (UA) (Normal) mg/dL Urine Ketones (Negative) mg/dL Urine Blood (Negative) Urine Nitrite (Negative) Urine Bilirubin (Negative) Urine Urobilinogen (Normal) mg/dL Ur Leukocyte Esterase (Negative) Ur Culture Indicated? (NO) 09/05/18 09/05/18 09/05/18 Range/Units 20:00 20:00 20:08 WBC (4.3-11.1) K/mcL RBC (3.82-4.97) M/mcL Hgb (11.5-15.4) g/dL Hct (35.3-44.9) % MCV (83.0-100.0) fL MCH (28.0-33.3) pg MCHC (31.6-35.5) g/dL RDW (11.5-14.5) % Plt Count (140-400) K/mcL MPV (9.4-12.4) fL Immature Gran % (0-4) % Seg Neutrophils % % Lymphocytes % % Monocytes % % Eosinophils % % Basophils % % Neutrophils # (1.6-8.9) K/mcL Lymphocytes # (0.6-4.6) K/mcL Monocytes # (0.0-1.3) K/mcL Eosinophils # (0.0-0.6) K/mcL Basophils # (0.0-0.2) K/mcL PT (9.4-12.1) Seconds INR APTT (26.0-36.0) Seconds Sample Site ABG pH (7.32-7.45) pH Units ABG pCO2 (35-45) mmHg ABG pO2 (85-104) mmHg ABG HCO3 (21-27) mEq/L ABG Total CO2 (20-26) mEq/L ABG O2 Saturation (95-98) % ABG Base Excess (-2 to 3) mEq/L O2 Delivery Device Inspired O2 (1-15=lpm ei23-237=%) PEEP cm H2O Sodium 139 (136-145) mEq/L Potassium 4.5 (3.5-5.1) mEq/L Chloride 103 (98-107) mEq/L Carbon Dioxide 32 H (23-29) mEq/L BUN 23 H (6-20) mg/dL Creatinine 0.91 (0.60-1.20) mg/dL Est GFR ( Amer) > 60 (> 60) Est GFR (Non-Af Amer) > 60 (> 60) BUN/Creatinine Ratio 25 (6-26) Glucose 157 H (70-105) mg/dL Calculated Osmolality 295 (280-300) Lactic Acid 0.6 (0.5-2.2) mmol/L Calcium 9.1 (8.6-10.3) mg/dL Phosphorus 1.4 L (2.7-4.5) mg/dL Magnesium 1.8 (1.6-2.6) mg/dL Total Bilirubin 0.6 (0.3-1.0) mg/dL Direct Bilirubin 0.1 (0.0-0.2) mg/dL Indirect Bilirubin 0.5 (0.0-1.2) mg/dL AST 18 (13-39) Units/L ALT 24 (7-52) Units/L Alkaline Phosphatase 78 (34-104) Units/L Troponin I 0.03 (< 0.04) ng/mL Serum Total Protein 6.9 (6.4-8.9) g/dL Albumin 3.9 (3.5-5.7) g/dL Globulin 3.0 (2.4-3.5) g/dL Albumin/Globulin Ratio 1.3 (1.1-2.2) Urine Color Yellow (Yellow) Urine Clarity Clear (Clear) Urine pH 6.0 (5.0-8.0) pH Units Ur Specific [place] 1.009 L (1.010-1.025) Urine Protein Negative (Neg-Trace) mg/dL Urine Glucose (UA) Normal (Normal) mg/dL Urine Ketones Negative (Negative) mg/dL Urine Blood Negative (Negative) Urine Nitrite Negative (Negative) Urine Bilirubin Negative (Negative) Urine Urobilinogen Normal (Normal) mg/dL Ur Leukocyte Esterase Negative (Negative) Ur Culture Indicated? NO (NO) - Radiology Data Radiology results reviewed: Yes I reviewed the patient's radiology results. Chest X-Ray 09/05/18 19:52 IMPRESSION: No gross acute pulmonary disease. Suboptimal lung expansion for the exam. Follow-up full inspiration PA and lateral chest may be useful for better characterization of pulmonary findings. Calcific atherosclerotic disease aorta. D/ / Chinmay Rodriguez / Chinmay Rodriguez Interpreting Provider: Chinmay Rodriguez Head CT 09/05/18 20:01 IMPRESSION: No acute intracranial abnormality. D/ / 09/05/2018 21:52:40 Vamsi Garrido MD / miriam Interpreting Provider: Vamsi Garrido MD Chest CT 09/05/18 21:05 IMPRESSION: 1. Exam is diminished in detail because of breathing motion blurring detail. 2. Several new pulmonary nodules bilateral lower lobes. These could be infectious or neoplastic. Correlate with clinical presentation and findings. Bronchoscopic evaluation or PET-CT imaging may be useful. 3. Nonspecific pre-vascular lymph node enlargement is probably reactive. 4. Calcific atherosclerosis aorta and coronary arteries. D/ / Chinmay Rodriguez / Chinmay Rodriguez Interpreting Provider: Chinmay Rodriguez - EKG Data EKG #1 EKG attestation: Yes I reviewed and interpreted this EKG. EKG results narrative: EKG shows sinus tachycardia with ventricular rate of 103. Right bundle branch block. No acute ST segment elevation or depression. No ectopy. No significant change from prior EKG dated 08/11/2018. Critical Care Time Critical Care Time: Yes Total Critical Care Time: 40 Attestation: Critical care performed: Time is exclusive of separately billable procedures. Time includes: direct patient care, patient reassessment, coordination of patient care, interpretation of data (laboratory data, radiology data, and respiratory data), review of patient's medical records, medical consultation and documentation of patient care. Procedures included in critical care time: Procedures excluded from critical care time: Attestation Statement - Attestation Attestation: I, Eder Wellington MD, personally evaluated this patient and discussed their management with the resident physician. I reviewed the resident's note and agree with the documented findings, medical decision making, and plan of care. 57-year-old female presents to the emergency department from home with respiratory distress and altered mental status. Patient does wear home oxygen. EMS reports on their arrival her oxygen saturation was 80%. He was placed on nonrebreather mask and oxygen improved to 95%. She was also noted to have a temp of 101. On arrival here the patient responds to verbal stimuli but is confused and unable to answer questions. No cyanosis or diaphoresis. Markedly decreased breath sounds. Shortly after arrival here she was placed on BiPAP. She had improvement in her vital signs but continues to be altered. On examination patient is a well-developed morbidly obese female in moderate rest or distress. She is very drowsy and somnolent but responds to verbal stimuli. Unable to answer questions. No cyanosis or diaphoresis. Rest sounds are markedly decreased bilaterally with very little air movement. No definite rales or wheezes noted. Heart is regular with a mild tachycardia. Abdomen is soft with present bowel sounds. Labs and imaging reviewed. Patient afebrile here. CT of the chest shows new bibasilar pulmonary nodules, infectious versus neoplastic. With patient's symptoms and fever and leukocytosis we will treat this as infectious at this time. IV antibiotics initiated. Blood cultures obtained. Patient was placed on BiPAP. The hospitalist, Dr. Walker, was consulted and accepted admission of the patient.
[2018-09-05] MEDS: *HR* Heparin 5,000 UNIT/ML VIAL SQ SCH (23:43)
[2018-09-05] MEDS: Piperacillin/Tazobactam 3.375 GM in 0.9 % Sodium Chloride Mini Bag 100 ML IVPB SCH (23:53)
[2018-09-06] MEDS ORDERED: methylPREDNISolone 125 MG/2 ML VIAL IVP ONE (00:12)
[2018-09-06] MEDS ORDERED: Ipratropium/Albuterol Neb 3 ML IH PRN (00:13)
[2018-09-06] MEDS ORDERED: *HR* Dextrose 50 % in Water (Syg) 50 ML SYRINGE IVP PRN (03:44)
[2018-09-06] MEDS ORDERED: Dextrose Gel 15 GM/37.5 ML TUBE PO PRN ×2 (03:44)
[2018-09-06] MEDS ORDERED: D5% in Water 1,000 ML IVC PRN (03:44)
[2018-09-06] MEDS: Ipratropium/Albuterol Neb 3 ML IH SCH ×5 (04:02→20:08)
[2018-09-06 04:24] LABS: ABG Base Excess 7 mEq/L (-2 to 3); ABG HCO3 35 mEq/L (21-27); ABG Oxygen Saturation 92 % (95-98); ABG PCO2 64 mmHg (35-45); ABG PH 7.34 pH Units (7.32-7.45); ABG PO2 70 mmHg (85-104); ABG TCO2 36 mEq/L (20-26); Blood Gas PEEP 8 cm H2O
[2018-09-06 04:36] LABS: Basophils % 0.1 %; Eosinophils # 0.1 K/mcL (0.0-0.6); Eosinophils % 0.6 %; Hematocrit 28.8 % (35.3-44.9); Hemoglobin 8.7 g/dL (11.5-15.4); Immature Granulocytes % 0.6 % (0-4); Lymphocytes # 1.2 K/mcL (0.6-4.6); Lymphocytes % 11.4 %; Mean Corpuscular HGB Conc 30.2 g/dL (31.6-35.5); Mean Corpuscular Hemoglobin 29.2 pg (28.0-33.3); Mean Corpuscular Volume 96.6 fL (83.0-100.0); Mean Platelet Volume 10.5 fL (9.4-12.4); Monocytes # 0.4 K/mcL (0.0-1.3); Monocytes % 3.4 %; Neutrophils # 8.8 K/mcL (1.6-8.9); Platelet Count 162 K/mcL (140-400); Red Blood Count 2.98 M/mcL (3.82-4.97); Red Cell Distribution Width 13.7 % (11.5-14.5); Segmented Neutrophils % 83.9 %
[2018-09-06 04:52] LABS: Alanine Aminotransferase 26 Units/L (7-52); Albumin 3.7 g/dL (3.5-5.7); Albumin/Globulin Ratio 1.4 (1.1-2.2); Alkaline Phosphatase 70 Units/L (34-104); Aspartate Amino Transferase 20 Units/L (13-39); BUN/Creatinine Ratio 27 (6-26); Bilirubin,Total 0.5 mg/dL (0.3-1.0); Blood Urea Nitrogen 23 mg/dL (6-20); Calcium 8.7 mg/dL (8.6-10.3); Carbon Dioxide 33 mEq/L (23-29); Chloride 104 mEq/L (98-107); Chol/HDL Ratio 3.9 (0-4.9); Cholesterol 130 mg/dL (< 200); Globulin 2.6 g/dL (2.4-3.5); Glucose 152 mg/dL (70-105); HDL Cholesterol 33 mg/dL (40-59); LDL Cholesterol,Calculated 74 mg/dL (0-99); Osmolality,Calculated 295 (280-300); Phosphorous 2.6 mg/dL (2.7-4.5); Potassium 4.8 mEq/L (3.5-5.1); Sodium 139 mEq/L (136-145); Total Protein 6.3 g/dL (6.4-8.9); Triglycerides 114 mg/dL (< 150); eGFR For Non-African Americans > 60 (> 60)
[2018-09-06 06:36] LABS: Adenovirus Not Detected (Not Detect); Bordetella Pertussis Not Detected (Not Detect); Chlamydophila pneumoniae Not Detected (Not Detect); Coronavirus 229E Not Detected (Not Detect); Coronavirus HKU1 Not Detected (Not Detect); Coronavirus NL63 Not Detected (Not Detect); Coronavirus OC43 Not Detected (Not Detect); Human Metapneumovirus Not Detected (Not Detect); Human Rhinovirus/Enterovirus Not Detected (Not Detect); Influenza A Subtype 2009 H1 Not Detected (Not Detect); Influenza A Untypeable Not Detected (Not Detect); Influenza B Not Detected (Not Detect); Mycoplasma pneumoniae Not Detected (Not Detect); Parainfluenza Virus 1 Not Detected (Not Detect); Parainfluenza Virus 2 Not Detected (Not Detect); Parainfluenza Virus 3 Not Detected (Not Detect); Parainfluenza Virus 4 Not Detected (Not Detect); Respiratory Syncytial Virus Not Detected (Not Detect)
[2018-09-06 06:43] LABS: Estimated Average Glucose 140 mg/dl; Hemoglobin A1C 6.5 %
[2018-09-06] MEDS ORDERED: methylPREDNISolone 125 MG/2 ML VIAL IVP SCH ×2 (08:00)
[2018-09-06] MEDS: Insulin LISPRO 300 UNITS/3 ML VIAL SQ SCH ×4 (08:10→20:06)
[2018-09-06] MEDS: ALPRAZolam 1 MG TABLET PO SCH ×3 (08:11→20:00)
[2018-09-06] MEDS: Piperacillin/Tazobactam 3.375 GM in 0.9 % Sodium Chloride Mini Bag 100 ML IVPB SCH ×3 (08:11→23:01)
[2018-09-06] MEDS: Furosemide 40 MG TABLET PO SCH (08:11)
[2018-09-06] MEDS: Aspirin Enteric Coated 81 MG Tablet PO SCH (08:11)
[2018-09-06] MEDS: Gabapentin 400 MG CAPSULE PO SCH ×3 (08:11→20:00)
[2018-09-06] MEDS: *HR* Heparin 5,000 UNIT/ML VIAL SQ SCH ×2 (08:11→18:35)
--- NOTE | 2018-09-06 08:41 | Internal Med Progress Note ---
Hospitalist Progress Note - Encounter Date of Encounter: 09/06/18 Time of Encounter: 09:00 - Exam Vitals: Temp Pulse Resp BP Pulse Ox 97.6 F 77 19 121/78 92 09/06/18 07:58 09/06/18 07:58 09/06/18 07:58 09/06/18 07:58 09/06/18 07:58 Exam: Gen: Vitals noted. No acute distress. Alert to physical and painful stimuli, oriented to person and place. Patient awakens momentarily but then immediately falls asleep again Eyes: anicteric sclerae, moist conjunctivae HENT: Atraumatic; oropharynx clear with moist mucous membranes and no mucosal ulcerations; normal hard and soft palate Neck: Trachea midline; supple, no thyromegaly or lymphadenopathy Cardiac: RRR, no murmur, +S1/S2 Pulmonary: CTA bilaterally, no wheezes, rales or rhonchi, equal chest expansion. Very poor air movement bilaterally on BiPAP Abdomen: soft, nontender, no guarding. No masses or hepatosplenomegaly Extremities: Trace BLE edema, nontender calf, no cyanosis or clubbing. Nonpitting edema present in the fingers Skin: Normal temperature, turgor and texture; no rash, ulcers or subcutaneous nodules Neuro: moves all extremities, no focal deficits. - Assessment and Plan (1) Acute on chronic respiratory failure with hypoxia and hypercapnia Current Visit: Yes Status: Acute Assessment and Plan: Pt comes in with lethargy, altered mental status and acute hypoxic hypercapneic respiratory failure likely secondary to COPD exacerbation and likely bacterial HCAP New pulmonary nodules seen on chest CT scan. Discussed with pulmonary (Dr Navarro) who recommend outpatient follow up as infection may be the etiology Continue on vanc and zosyn, IV steroids and round the clock nebs. Wean down steroids to PO (2) Community acquired bacterial pneumonia Current Visit: Yes Status: Acute Assessment and Plan: Hypoxia with fevers secondary to likely bacterial HCAP. CT chest also showed new nodules Continue broad spectrum antibiotics. Follow up blood cultures (3) Acute exacerbation of chronic obstructive airways disease Current Visit: Yes Status: Acute Assessment and Plan: See#1. On nebs, steroids and antibiotics (4) Morbid obesity Current Visit: Yes Status: Acute Assessment and Plan: Exercise and weight loss (5) Altered mental status Current Visit: No Status: Resolved Assessment and Plan: Likely 2/2 to CO2 narcosis. See #1. On nebs , steroids and antibiotics (6) CAD (coronary artery disease) Current Visit: Yes Status: Chronic Assessment and Plan: Continue aspirin and statin DVT Prophylaxis: Heparin sc - Time Spent with Patient Total time spent is greater than 50% in coordination of care (as documented) at patient's floor/unit and/or counseling patient: Internal Medicine: Result - Labs CBC & Chem 7: 09/06/18 03:27 09/06/18 03:27 Labs: Short CBC 09/05/18 09/06/18 Range/Units 20:00 03:27 WBC 11.8 H 10.5 (4.3-11.1) K/mcL Hgb 9.6 L 8.7 L (11.5-15.4) g/dL Hct 30.7 L 28.8 L (35.3-44.9) % Plt Count 177 162 (140-400) K/mcL Neutrophils # 9.7 H 8.8 (1.6-8.9) K/mcL BMP 09/05/18 09/06/18 20:00 03:27 Sodium 139 139 Potassium 4.5 4.8 Chloride 103 104 Carbon Dioxide 32 H 33 H BUN 23 H 23 H Creatinine 0.91 0.86 Glucose 157 H 152 H Calcium 9.1 8.7 Cardiac Enzymes 09/05/18 Range/Units 20:00 Troponin I 0.03 (< 0.04) ng/mL Liver Function 09/05/18 09/06/18 Range/Units 20:00 03:27 Total Bilirubin 0.6 0.5 (0.3-1.0) mg/dL Direct Bilirubin 0.1 (0.0-0.2) mg/dL AST 18 20 (13-39) Units/L ALT 24 26 (7-52) Units/L Alkaline Phosphatase 78 70 (34-104) Units/L Albumin 3.9 3.7 (3.5-5.7) g/dL Urine 09/05/18 Range/Units 20:08 Urine Color Yellow (Yellow) Urine Clarity Clear (Clear) Urine pH 6.0 (5.0-8.0) pH Units Ur Specific [place] 1.009 L (1.010-1.025) Urine Protein Negative (Neg-Trace) mg/dL Urine Glucose (UA) Normal (Normal) mg/dL - ABG Interpretation ABG results: ABG ABG pH 7.34 pH Units (7.32-7.45) 09/06/18 04:21 ABG pCO2 64 mmHg (35-45) H 09/06/18 04:21 ABG pO2 70 mmHg (85-104) L 09/06/18 04:21 ABG O2 Saturation 92 % (95-98) L 09/06/18 04:21 PT/INR, D-dimer PT 11.9 Seconds (9.4-12.1) 09/05/18 20:00 - Impressions Impressions Chest X-Ray 09/05/18 19:52 IMPRESSION: No gross acute pulmonary disease. Suboptimal lung expansion for the exam. Follow-up full inspiration PA and lateral chest may be useful for better characterization of pulmonary findings. Calcific atherosclerotic disease aorta. D/ / Chinmay Rodriguez / Chinmay Rodriguez Interpreting Provider: Chinmay Rodriguez Head CT 09/05/18 20:01 IMPRESSION: No acute intracranial abnormality. D/ / 09/05/2018 21:52:40 Vamsi Garrido MD / miriam Interpreting Provider: Vamsi Garrido MD Chest CT 09/05/18 21:05 IMPRESSION: 1. Exam is diminished in detail because of breathing motion blurring detail. 2. Several new pulmonary nodules bilateral lower lobes. These could be infectious or neoplastic. Correlate with clinical presentation and findings. Bronchoscopic evaluation or PET-CT imaging may be useful. 3. Nonspecific pre-vascular lymph node enlargement is probably reactive. 4. Calcific atherosclerosis aorta and coronary arteries. D/ / Chinmay Rodriguez / Chinmay Rodriguez Interpreting Provider: Chinmay Rodriguez Consult Discharge Plan - Plan Referrals: Sydney Mendoza MD [Primary Care Provider] - (5) Altered mental status Qualifiers: Altered mental status type: unspecified Qualified Code(s): R41.82 - Altered mental status, unspecified (6) CAD (coronary artery disease) Qualifiers: Coronary Disease-Associated Artery/Lesion type: [place] artery [place] vs. transplanted heart: [place] heart Associated angina: without angina Qualified Code(s): I25.10 - Atherosclerotic heart disease of [place] coronary artery without angina pectoris
[2018-09-06] MEDS ORDERED: Tiotropium 18 MCG inhalation IH SCH (09:00)
[2018-09-06] MEDS ORDERED: FLUTICASONE IH SCH (09:00)
[2018-09-06] MEDS ORDERED: [UNRECOGNIZED DRUG - OTHER] IH SCH (09:00)
[2018-09-06] MEDS ORDERED: SALMETEROL IH SCH (09:00)
[2018-09-06] MEDS: Budesonide/Formoterol 160/4.5 1 PUFF INH IH SCH ×2 (11:14→20:08)
[2018-09-06] MEDS ORDERED: Albuterol 2.5 MG/3 ML NEBULIZER IH PRN (15:17)
[2018-09-06] MEDS ORDERED: *HR* LORazepam 2 MG/ML VIAL IVP PRN (16:14)
[2018-09-06] MEDS: methylPREDNISolone 125 MG/2 ML VIAL IVP SCH ×2 (16:41→23:00)
[2018-09-07] MEDS: Ipratropium/Albuterol Neb 3 ML IH SCH ×6 (00:08→20:58)
[2018-09-07] MEDS: *HR* Heparin 5,000 UNIT/ML VIAL SQ SCH ×2 (05:04→17:33)
[2018-09-07 05:34] LABS: Basophils % 0.1 %; Hematocrit 27.6 % (35.3-44.9); Hemoglobin 8.9 g/dL (11.5-15.4); Immature Granulocytes % 0.9 % (0-4); Lymphocytes % 10.9 %; Mean Corpuscular HGB Conc 32.2 g/dL (31.6-35.5); Mean Corpuscular Hemoglobin 29.9 pg (28.0-33.3); Mean Corpuscular Volume 92.6 fL (83.0-100.0); Mean Platelet Volume 10.4 fL (9.4-12.4); Monocytes # 0.2 K/mcL (0.0-1.3); Monocytes % 2.5 %; Neutrophils # 7.6 K/mcL (1.6-8.9); Platelet Count 166 K/mcL (140-400); Red Blood Count 2.98 M/mcL (3.82-4.97); Red Cell Distribution Width 13.5 % (11.5-14.5); Segmented Neutrophils % 85.6 %
[2018-09-07 05:51] LABS: BUN/Creatinine Ratio 28 (6-26); Blood Urea Nitrogen 25 mg/dL (6-20); Carbon Dioxide 30 mEq/L (23-29); Chloride 102 mEq/L (98-107); Glucose 212 mg/dL (70-105); Osmolality,Calculated 299 (280-300); Phosphorous 2.9 mg/dL (2.7-4.5); Potassium 4.2 mEq/L (3.5-5.1); Sodium 139 mEq/L (136-145); eGFR For Non-African Americans > 60 (> 60)
[2018-09-07] MEDS: Budesonide/Formoterol 160/4.5 1 PUFF INH IH SCH ×2 (07:51→20:58)
[2018-09-07] MEDS: Insulin LISPRO 300 UNITS/3 ML VIAL SQ SCH ×4 (08:07→17:39)
[2018-09-07] MEDS: Furosemide 40 MG TABLET PO SCH (08:10)
[2018-09-07] MEDS: Aspirin Enteric Coated 81 MG Tablet PO SCH (08:10)
[2018-09-07] MEDS: Gabapentin 400 MG CAPSULE PO SCH ×3 (08:11→20:22)
[2018-09-07] MEDS: methylPREDNISolone 125 MG/2 ML VIAL IVP SCH ×2 (08:11→17:33)
[2018-09-07] MEDS: ALPRAZolam 1 MG TABLET PO SCH ×3 (08:11→20:22)
[2018-09-07] MEDS: Piperacillin/Tazobactam 3.375 GM in 0.9 % Sodium Chloride Mini Bag 100 ML IVPB SCH ×2 (08:12→17:40)
[2018-09-07] MEDS ORDERED: Aminoglycoside Consult 1 EACH MC ONE (08:20)
--- NOTE | 2018-09-07 10:47 | Internal Med Progress Note ---
Hospitalist Progress Note - Encounter Date of Encounter: 09/07/18 Time of Encounter: 10:46 - Subjective Interval History: 57 F admitted and being managed for encephalopathy due to acute on chronic hypoxic and hypercepnic resp failure AAOX3 this a.m, with no new complains - Exam Vitals: Temp Pulse Resp BP Pulse Ox 97.9 F 66 16 134/82 94 09/07/18 07:34 09/07/18 07:34 09/07/18 07:51 09/07/18 07:34 09/07/18 07:51 Exam: Gen: Vitals noted. No acute distress. Sitting out of bed Eyes: anicteric sclerae, moist conjunctivae HENT: Atraumatic; oropharynx clear with moist mucous membranes and no mucosal ulcerations, poor oral hygeine Neck: Trachea midline; supple, no thyromegaly or lymphadenopathy Cardiac: RRR, no murmur, +S1/S2 Pulmonary: CTA bilaterally, no wheezes, rales or rhonchi, equal chest expansion. Abdomen: soft, nontender, no guarding. No masses or hepatosplenomegaly Extremities: no edema, nontender calf, no cyanosis or clubbing. Skin: Normal temperature, turgor and texture; no rash, ulcers or subcutaneous nodules Neuro: moves all extremities, no focal deficits. - Assessment and Plan (1) Acute exacerbation of chronic obstructive airways disease Current Visit: Yes Status: Acute Assessment and Plan: Patient with multiple admissions for COPD exacerbation Continue current medications Switch Solu-Medrol to by mouth prednisone Continue antibiotics, cultures negative to date (2) Acute on chronic respiratory failure with hypoxia and hypercapnia Current Visit: Yes Status: Acute Assessment and Plan: Pt presented with lethargy, altered mental status and acute hypoxic hypercapneic respiratory failure likely secondary to COPD exacerbation and likely bacterial HCAP New pulmonary nodules seen on chest CT scan. Discussed with pulmonary (Dr Navarro) who recommend outpatient follow up as infection may be the etiology Vancomycin discontinued, continue Zosyn (3) CAD (coronary artery disease) Current Visit: Yes Status: Chronic Assessment and Plan: Continue aspirin and statin (4) Morbid obesity Current Visit: Yes Status: Chronic Assessment and Plan: Exercise and weight loss (5) Altered mental status Current Visit: Yes Status: Resolved Assessment and Plan: Resolved extent patient is awake alert oriented 3 Likely 2/2 to CO2 narcosis. (6) Community acquired bacterial pneumonia Current Visit: Yes Status: Acute Assessment and Plan: Hypoxia with fevers secondary to likely bacterial HCAP. CT chest also showed new nodules Continue broad spectrum antibiotics. Follow up blood cultures - Time Spent with Patient Total time spent is greater than 50% in coordination of care (as documented) at patient's floor/unit and/or counseling patient: Internal Medicine: Result - Labs CBC & Chem 7: 09/07/18 05:13 09/07/18 05:13 Labs: Short CBC 09/07/18 Range/Units 05:13 WBC 8.9 (4.3-11.1) K/mcL Hgb 8.9 L (11.5-15.4) g/dL Hct 27.6 L (35.3-44.9) % Plt Count 166 (140-400) K/mcL Neutrophils # 7.6 (1.6-8.9) K/mcL BMP 09/07/18 05:13 Sodium 139 Potassium 4.2 Chloride 102 Carbon Dioxide 30 H BUN 25 H Creatinine 0.89 Glucose 212 H Calcium 9.0 - ABG Interpretation ABG results: ABG ABG pH 7.34 pH Units (7.32-7.45) 09/06/18 04:21 ABG pCO2 64 mmHg (35-45) H 09/06/18 04:21 ABG pO2 70 mmHg (85-104) L 09/06/18 04:21 ABG O2 Saturation 92 % (95-98) L 09/06/18 04:21 PT/INR, D-dimer PT 11.9 Seconds (9.4-12.1) 09/05/18 20:00 - Impressions Impressions Head CT 09/05/18 20:01 IMPRESSION: No acute intracranial abnormality. D/ / 09/05/2018 21:52:40 Vamsi Garrido MD / miriam Interpreting Provider: Vamsi Garrido MD Consult Discharge Plan - Plan Referrals: Sydney Mendoza MD [Primary Care Provider] - (per the office the patient has to call and make their own follow up appointment) (3) CAD (coronary artery disease) Qualifiers: Coronary Disease-Associated Artery/Lesion type: [place] artery [place] vs. transplanted heart: [place] heart Associated angina: without angina Qualified Code(s): I25.10 - Atherosclerotic heart disease of [place] coronary artery without angina pectoris (5) Altered mental status Qualifiers: Altered mental status type: unspecified Qualified Code(s): R41.82 - Altered mental status, unspecified
[2018-09-08] MEDS: Ipratropium/Albuterol Neb 3 ML IH SCH ×7 (00:08→23:30)
[2018-09-08] MEDS: methylPREDNISolone 125 MG/2 ML VIAL IVP SCH (03:02)
[2018-09-08] MEDS: Piperacillin/Tazobactam 3.375 GM in 0.9 % Sodium Chloride Mini Bag 100 ML IVPB SCH ×2 (03:03→07:44)
[2018-09-08 03:48] LABS: Basophils % 0.1 %; Eosinophils % 0.1 %; Hematocrit 28.1 % (35.3-44.9); Hemoglobin 8.7 g/dL (11.5-15.4); Immature Granulocytes % 0.6 % (0-4); Lymphocytes # 2.8 K/mcL (0.6-4.6); Lymphocytes % 22.4 %; Mean Corpuscular Hemoglobin 29.1 pg (28.0-33.3); Mean Platelet Volume 10.3 fL (9.4-12.4); Monocytes # 1.1 K/mcL (0.0-1.3); Monocytes % 8.7 %; Neutrophils # 8.6 K/mcL (1.6-8.9); Platelet Count 200 K/mcL (140-400); Red Blood Count 2.99 M/mcL (3.82-4.97); Red Cell Distribution Width 13.9 % (11.5-14.5); Segmented Neutrophils % 68.1 %
[2018-09-08 04:39] LABS: BUN/Creatinine Ratio 31 (6-26); Blood Urea Nitrogen 29 mg/dL (6-20); Calcium 8.8 mg/dL (8.6-10.3); Carbon Dioxide 30 mEq/L (23-29); Chloride 103 mEq/L (98-107); Glucose 133 mg/dL (70-105); Osmolality,Calculated 302 (280-300); Phosphorous 3.3 mg/dL (2.7-4.5); Potassium 3.7 mEq/L (3.5-5.1); Sodium 142 mEq/L (136-145); eGFR For Non-African Americans > 60 (> 60)
[2018-09-08] MEDS: *HR* Heparin 5,000 UNIT/ML VIAL SQ SCH ×2 (06:47→16:51)
[2018-09-08] MEDS: Budesonide/Formoterol 160/4.5 1 PUFF INH IH SCH ×2 (07:23→20:07)
[2018-09-08] MEDS: predniSONE 20 MG TABLET PO SCH (07:30)
[2018-09-08] MEDS: ALPRAZolam 1 MG TABLET PO SCH ×3 (07:30→20:32)
[2018-09-08] MEDS: Gabapentin 400 MG CAPSULE PO SCH ×3 (07:31→20:32)
[2018-09-08] MEDS: Aspirin Enteric Coated 81 MG Tablet PO SCH (07:31)
[2018-09-08] MEDS: Furosemide 40 MG TABLET PO SCH (07:31)
[2018-09-08] MEDS: Insulin LISPRO 300 UNITS/3 ML VIAL SQ SCH ×4 (07:44→20:32)
--- NOTE | 2018-09-08 09:36 | Internal Med Progress Note ---
Hospitalist Progress Note - Encounter Date of Encounter: 09/08/18 Time of Encounter: 09:35 - Subjective Interval History: 57 F admitted and being managed for encephalopathy due to acute on chronic hypoxic and hypercepnic resp failure AAOX3 this a.m, with no new complains She has made remarkable improvement, afebrile New leukocytosis likely due to steroids, patient is improving clinically Will change antibiotics to po - Exam Vitals: Temp Pulse Resp BP Pulse Ox 98.4 F 114 18 138/80 98 09/08/18 07:39 09/08/18 03:26 09/08/18 07:39 09/08/18 07:39 09/08/18 07:39 Exam: Gen: Vitals noted. No acute distress. Sitting out of bed Eyes: anicteric sclerae, moist conjunctivae HENT: Atraumatic; oropharynx clear with moist mucous membranes and no mucosal ulcerations, poor oral hygeine Neck: Trachea midline; supple, no thyromegaly or lymphadenopathy Cardiac: RRR, no murmur, +S1/S2 Pulmonary: CTA bilaterally, no wheezes, rales or rhonchi, equal chest expansion. Abdomen: soft, nontender, no guarding. No masses or hepatosplenomegaly Extremities: no edema, nontender calf, no cyanosis or clubbing. Skin: Normal temperature, turgor and texture; no rash, ulcers or subcutaneous nodules Neuro: moves all extremities, no focal deficits. - Assessment and Plan (1) Acute exacerbation of chronic obstructive airways disease Current Visit: Yes Status: Acute Assessment and Plan: Patient with multiple admissions for COPD exacerbation Continue current medications Continue prednisone, will taper on discharge Continue antibiotics, cultures negative to date (2) Acute on chronic respiratory failure with hypoxia and hypercapnia Current Visit: Yes Status: Acute Assessment and Plan: Pt presented with lethargy, altered mental status and acute hypoxic hypercapneic respiratory failure likely secondary to COPD exacerbation and likely bacterial HCAP New pulmonary nodules seen on chest CT scan. Discussed with pulmonary (Dr Navarro) who recommend outpatient follow up as infection may be the etiology Vancomycin and Zosyn discontinued Start po augmentin (3) CAD (coronary artery disease) Current Visit: Yes Status: Chronic Assessment and Plan: Continue aspirin and statin (4) Morbid obesity Current Visit: Yes Status: Chronic Assessment and Plan: Exercise and weight loss (5) Altered mental status Current Visit: Yes Status: Resolved Assessment and Plan: Resolved extent patient is awake alert oriented 3 Likely 2/2 to CO2 narcosis. (6) Community acquired bacterial pneumonia Current Visit: Yes Status: Acute Assessment and Plan: Hypoxia with fevers secondary to likely bacterial HCAP. CT chest also showed new nodules Continue broad spectrum antibiotics. Follow up blood cultures-negative till date DVT Prophylaxis: Heparin sc - Time Spent with Patient Total time spent is greater than 50% in coordination of care (as documented) at patient's floor/unit and/or counseling patient: Internal Medicine: Result - Labs CBC & Chem 7: 09/08/18 03:17 09/08/18 03:17 Labs: Short CBC 09/08/18 Range/Units 03:17 WBC 12.6 H (4.3-11.1) K/mcL Hgb 8.7 L (11.5-15.4) g/dL Hct 28.1 L (35.3-44.9) % Plt Count 200 (140-400) K/mcL Neutrophils # 8.6 (1.6-8.9) K/mcL BMP 09/08/18 03:17 Sodium 142 Potassium 3.7 Chloride 103 Carbon Dioxide 30 H BUN 29 H Creatinine 0.93 Glucose 133 H Calcium 8.8 - ABG Interpretation ABG results: ABG ABG pH 7.34 pH Units (7.32-7.45) 09/06/18 04:21 ABG pCO2 64 mmHg (35-45) H 09/06/18 04:21 ABG pO2 70 mmHg (85-104) L 09/06/18 04:21 ABG O2 Saturation 92 % (95-98) L 09/06/18 04:21 PT/INR, D-dimer PT 11.9 Seconds (9.4-12.1) 09/05/18 20:00 Consult Discharge Plan - Plan Referrals: Sydeny Mendoza MD [Primary Care Provider] - (per the office the patient has to call and make their own follow up appointment) (3) CAD (coronary artery disease) Qualifiers: Coronary Disease-Associated Artery/Lesion type: [place] artery [place] vs. transplanted heart: [place] heart Associated angina: without angina Qualified Code(s): I25.10 - Atherosclerotic heart disease of [place] coronary artery without angina pectoris (5) Altered mental status Qualifiers: Altered mental status type: unspecified Qualified Code(s): R41.82 - Altered mental status, unspecified
--- NOTE | 2018-09-08 13:28 | Electrocardiograph Report ---
[address] [place], [place] [address] Test Date: 2018-09-05 Pat Name: Imelda Bella Department: [id number] Room: 2N03 Gender: F Acute Care Nurse: : 1960 Requested By: Shun Draper Order Number: [id number] Reading MD: Carlos Lea Measurements Intervals [place] Rate: 103 P: 67 MA: 143 QRS: 31 QRSD: 145 T: 60 QT: 370 QTc: 485 Interpretive Statements Sinus tachycardia Right bundle branch block Electronically Signed On 09-08-2018 13:27:17 EST by Carlos Lea
[2018-09-09] MEDS: Ipratropium/Albuterol Neb 3 ML IH SCH ×3 (03:48→11:06)
[2018-09-09 04:50] LABS: Basophils % 0.2 %; Eosinophils # 0.1 K/mcL (0.0-0.6); Eosinophils % 0.8 %; Hematocrit 29.8 % (35.3-44.9); Hemoglobin 9.1 g/dL (11.5-15.4); Immature Granulocytes % 0.6 % (0-4); Lymphocytes # 3.5 K/mcL (0.6-4.6); Lymphocytes % 31.9 %; Mean Corpuscular HGB Conc 30.5 g/dL (31.6-35.5); Mean Corpuscular Hemoglobin 28.9 pg (28.0-33.3); Mean Corpuscular Volume 94.6 fL (83.0-100.0); Mean Platelet Volume 9.9 fL (9.4-12.4); Monocytes # 0.9 K/mcL (0.0-1.3); Monocytes % 8.5 %; Neutrophils # 6.3 K/mcL (1.6-8.9); Platelet Count 210 K/mcL (140-400); Red Blood Count 3.15 M/mcL (3.82-4.97)
[2018-09-09 05:33] LABS: BUN/Creatinine Ratio 27 (6-26); Blood Urea Nitrogen 25 mg/dL (6-20); Carbon Dioxide 29 mEq/L (23-29); Chloride 104 mEq/L (98-107); Glucose 109 mg/dL (70-105); Osmolality,Calculated 297 (280-300); Phosphorous 3.9 mg/dL (2.7-4.5); Potassium 3.8 mEq/L (3.5-5.1); Sodium 141 mEq/L (136-145); eGFR For Non-African Americans > 60 (> 60)
[2018-09-09] MEDS: *HR* Heparin 5,000 UNIT/ML VIAL SQ SCH (06:04)
[2018-09-09 07:21] VITALS: BP 127/79
[2018-09-09] MEDS: Budesonide/Formoterol 160/4.5 1 PUFF INH IH SCH (07:43)
[2018-09-09] MEDS: ALPRAZolam 1 MG TABLET PO SCH (09:01)
[2018-09-09] MEDS: Gabapentin 400 MG CAPSULE PO SCH (09:02)
[2018-09-09] MEDS: predniSONE 20 MG TABLET PO SCH (09:02)
[2018-09-09] MEDS: Furosemide 40 MG TABLET PO SCH (09:02)
[2018-09-09] MEDS: Aspirin Enteric Coated 81 MG Tablet PO SCH (09:02)
[2018-09-09] MEDS: Insulin LISPRO 300 UNITS/3 ML VIAL SQ SCH (09:02)
--- NOTE | 2018-09-09 11:22 | Discharge Summary ---
- NOTES TO OUTPATIENT PROVIDER Notes to Outpatient Provider: Admitted for acute encephalopathy due to Co2 narcosis, acute on chronic hypoxic and hypercapneic resp failure, COPDE, PNA, new pulm nodules. She is now AAoX3, and has been stable. She has O2 and BiPAP at home and is discharged home on prednisone taper and oral antibiotics. Recommend to follow up with PCP and Die Tripper . Encourgaed compliance with BiPAP and Oxygen Orders not resulted at time of discharge: Pending orders 09/05/18 20:12 Culture,Blood [BC] Stat 09/06/18 03:12 Culture,Sputum with Gram Stain [RM] Routine 09/10/18 04:00 Basic Metabolic Panel AM 0400 CBC [Complete Blood Count] [HEME] AM 0400 Magnesium AM 0400 Phosphorous AM 0400 09/11/18 04:00 Basic Metabolic Panel AM 0400 CBC [Complete Blood Count] [HEME] AM 0400 Magnesium AM 0400 Phosphorous AM 0400 09/12/18 04:00 Basic Metabolic Panel AM 0400 CBC [Complete Blood Count] [HEME] AM 0400 Magnesium AM 0400 Phosphorous AM 0400 Date of Encounter: 09/09/18 Time of Encounter: 11:21 - Discharge Diagnosis (1) Acute exacerbation of chronic obstructive airways disease Priority: Primary Status: Resolved Assessment and Plan: Patient with multiple admissions for COPD exacerbation Cultures negative, discharged on prednisone taper and antibiotics (2) Acute on chronic respiratory failure with hypoxia and hypercapnia Priority: Primary Status: Resolved Assessment and Plan: Pt presented with lethargy, altered mental status and acute hypoxic hypercapneic respiratory failure likely secondary to COPD exacerbation and likely bacterial HCAP New pulmonary nodules seen on chest CT scan. Discussed with pulmonary (Dr Navarro) who recommend outpatient follow up as infection may be the etiology Follow up with PCP and Pulm for repeat CT as recommended (3) CAD (coronary artery disease) Priority: Secondary Status: Chronic Assessment and Plan: Continue aspirin and statin Qualifiers: Coronary Disease-Associated Artery/Lesion type: [place] artery [place] vs. transplanted heart: [place] heart Associated angina: without angina Qualified Code(s): I25.10 - Atherosclerotic heart disease of [place] coronary artery without angina pectoris (4) Morbid obesity Priority: Secondary Status: Chronic Assessment and Plan: Exercise and weight loss (5) Altered mental status Priority: Primary Status: Resolved Assessment and Plan: Resolved extent patient is awake alert oriented 3 Likely 2/2 to CO2 narcosis. Qualifiers: Altered mental status type: unspecified Qualified Code(s): R41.82 - Altered mental status, unspecified (6) Community acquired bacterial pneumonia Priority: Primary Status: Acute Assessment and Plan: Hypoxia with fevers secondary to likely bacterial HCAP. CT chest also showed new nodules Continue augmentin Hospital course: Ms. Bella is a 57 year old female Admitted for acute encephalopathy due to Co2 narcosis, acute on chronic hypoxic and hypercapneic resp failure, COPDE, PNA, new pulm nodules. She is now AAoX3, and has been stable. She has O2 and BiPAP at home and is discharged home on prednisone taper and oral antibiotics. Recommend to follow up with PCP and Die Tripper . Encourgaed compliance with BiPAP and Oxygen Discharge discussed with: patient, nurse - Time Spent with Patient Total time spent providing and/or coordinating discharge services: Less than 30 minutes - Discharge Medications Prescriptions: Amoxicillin/Clavulanate [Augmentin] 875 mg PO BIDWM #12 tablet predniSONE [PredniSONE] 40 mg PO DAILY #20 tablet Home Medications: ALPRAZolam [Xanax 1 MG Tablet] 1 tab PO TID 06/07/16 [History] Citalopram Hydrobromide [Celexa] 40 mg PO DAILY 06/07/16 [History] Furosemide [Lasix] 40 mg PO DAILY 06/07/16 [History] Oxygen 3 - 5 l NS AD 06/07/16 [History] Aspirin [Lo-Dose Aspirin EC] 81 mg PO DAILY 12/07/16 [History] Atorvastatin [Lipitor] 40 mg PO DAILY 12/07/16 [History] Fluticasone/Salmeterol [Advair 250-50 Diskus] 2 puff IH DAILY 12/07/16 [History] metFORMIN [Glucophage] 500 mg PO 0800 #30 tablet 09/08/17 [Rx] Gabapentin [Neurontin] 400 mg PO TID 07/17/18 [History] Tiotropium [Spiriva] 1 puff IH DAILY 07/17/18 [History] BuPROPion XL (24 HR) [Wellbutrin Xl] 150 mg PO DAILY 09/08/18 [History] Gabapentin [Neurontin] 300 mg PO TID 09/08/18 [History] Lisinopril 30 mg PO DAILY 09/08/18 [History] Amoxicillin/Clavulanate [Augmentin] 875 mg PO BIDWM #12 tablet 09/09/18 [Rx] predniSONE [PredniSONE] 40 mg PO DAILY #20 tablet 09/09/18 [Rx] Allergies/Adverse Reactions: Allergy/AdvReac Type Severity Reaction Status Date / Time No Known Allergies Allergy Verified 07/17/18 11:05 Date of admission: 09/05/18 22:51 Primary care physician: Sydney Mendoza MD Consults: 09/06/18 15:12 Consult to Nurse Navigator [CONS] Routine Comment: Discharging clinician: Darrel Lowry Anticipated date of discharge: 09/09/18 - Constitutional Vitals: Temp Pulse Resp BP Pulse Ox 98 F 68 16 127/79 97 09/09/18 07:17 09/09/18 07:17 09/09/18 07:44 09/09/18 07:17 09/09/18 07:44 General appearance: Present: A&O X 3, morbidly obese, pleasant, no acute distress Exam: Gen: Vitals noted. No acute distress. Sitting out of bed Eyes: anicteric sclerae, moist conjunctivae HENT: Atraumatic; oropharynx clear with moist mucous membranes and no mucosal ulcerations, poor oral hygeine Neck: Trachea midline; supple, no thyromegaly or lymphadenopathy Cardiac: RRR, no murmur, +S1/S2 Pulmonary: CTA bilaterally, no wheezes, rales or rhonchi, equal chest expansion. Abdomen: soft, non-tender, no guarding. No masses or hepatosplenomegaly Extremities: no edema, non-tender calf, no cyanosis or clubbing. Skin: Normal temperature, turgor and texture; no rash, ulcers or subcutaneous nodules Neuro: moves all extremities, no focal deficits. - Patient Status Disposition: Home, Self-Care Condition: Fair Functional capacity at discharge: independent ambulation Overall status at discharge: patient is back to baseline - Discharge Instructions Follow Up With: Sydney Mendoza MD [Primary Care Provider] - (per the office the patient has to call and make their own follow up appointment) - Diet and Activity Activity: wear oxygen at all times Diet: low fat, low cholesterol, low salt diet
== END 2018-09-09 12:22 | disposition home or self-care (01) | DRG 193 ==
LOC: 2NNU 19:42 → EMEROOARM 19:42 → SUATTDRO 22:51 → 2NNU 23:12 → 2NENU 09-08 17:44
PROVIDERS: ADMIT Internal Medicine; ATTEND Internal Medicine